=== PATIENT | male | born 1955 | race Caucasian/White ===

== ENCOUNTER 2017-10-19 13:53 | Day surgery (SDC) | payer BC ==
[~2017-10-19] VITALS: Ht 172.7 cm; Wt 110.2 kg
[2017-10-19 14:28] LABS: BASOPHILS # (AUTO) 0.1 10^3/uL (0.0-0.1); BASOPHILS % (AUTO) 0 % (0-10); EOSINOPHILS # (AUTO) 0.2 10^3/uL (0.0-0.3); EOSINOPHILS % (AUTO) 2 % (0-10); HEMATOCRIT 44 % (40-54); HEMOGLOBIN 15.5 G/DL (13.3-17.7); LYMPHOCYTES # (AUTO) 1.4 X 10^3 (1.0-4.0); LYMPHOCYTES % (AUTO) 12 % (12-44); MEAN CORPUSCULAR HEMOGLOBIN 31 PG (25-34); MEAN CORPUSCULAR HGB CONC 35 G/DL (32-36); MEAN CORPUSCULAR VOLUME 90 FL (80-99); MEAN PLATELET VOLUME 9.1 FL (7.4-10.4); MONOCYTES # (AUTO) 1.1 X 10^3 (0.0-1.0); MONOCYTES % (AUTO) 10 % (0-12); NEUTROPHILS # (AUTO) 8.5 X 10^3 (1.8-7.8); NEUTROPHILS % (AUTO) 76 % (42-75); PLATELET COUNT 288 10^3/uL (130-400); RED BLOOD COUNT 4.93 10^6/uL (4.35-5.85); RED CELL DISTRIBUTION WIDTH 14.5 % (10.0-14.5); WHITE BLOOD COUNT 11.2 10^3/uL (4.3-11.0)
[2017-10-19 14:57] LABS: ALANINE AMINOTRANSFERASE 26 U/L (0-55); ALBUMIN 4.3 GM/DL (3.2-4.5); ALKALINE PHOSPHATASE 120 U/L (40-136); BILIRUBIN,TOTAL 0.5 MG/DL (0.1-1.0); BUN/CREATININE RATIO 14; CALCIUM 9.2 MG/DL (8.5-10.1); CARBON DIOXIDE 20 MMOL/L (21-32); CHLORIDE 106 MMOL/L (98-107); CREATININE SERUM 1.01 MG/DL (0.60-1.30); GFR ESTIMATED > 60; GLUCOSE 171 MG/DL (70-105); POTASSIUM 4.3 MMOL/L (3.6-5.0); SODIUM 137 MMOL/L (135-145); TOTAL PROTEIN 6.5 GM/DL (6.4-8.2)
--- NOTE | 2017-10-19 15:15 | Diagnostic Imaging Report ---
INDICATION: Chest pain. TIME OF EXAM: 02:56 p.m. COMPARISON: No prior studies are available for comparison. FINDINGS: The heart size is normal. The pulmonary vascularity is unremarkable. The lungs are clear. No infiltrate, effusion or pneumothorax is detected. IMPRESSION: No acute cardiopulmonary process is detected. Dictated by: Dictated on workstation # [id number]
--- NOTE | 2017-10-19 15:55 | ED Chest Pain ---
General Chief Complaint: Chest Pain Stated Complaint: EKG ABN Nursing Triage Note: PATIENT STATES THAT HE WAS TOLD TO COME TO THE ER BY HIS PCP AFTER AN ABNORMAL EKG THIS MORNING. 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 HE HAS NO ASSOCIATED SYMPTOMS. Nursing Sepsis Screen: No Definite Risk Source: patient Exam Limitations: no limitations History of Present Illness Date Seen by Provider: Oct 19, 2017 Time Seen by Provider: 15:20 Initial Comments The patient is a 62-year-old white male. He relates that he was awakened from sleep at about 04 30 with chest pain. This persisted. He had had at least one shorter episode earlier in the week. He does not smoke. There is no strong family history of early heart disease. He is a type II diabetic and takes only metformin. He noted after getting up that the pain seemed to go from to his back in an area just below the left shoulder blade. It also seemed to relieve after he got up and moved about. He reports there was some pain to movement when he initially got up. He then decided to go to the [facility] and saw a nurse practitioner there. She sent him here and he had an electrocardiogram and a troponin drawn when she got the computer interpreted the EKG report it has stated that there was an inferolateral infarct acutely. She then called him back and told him that he should report to the emergency room. After arrival here he reported that he was having minimum of any pain. Electrocardiogram repeated was exactly the same and revealed a right bundle branch block which had been present. This was not consistent with inferolateral infarct. A repeat troponin has subsequently been drawn and is normal as well. Timing/Duration: 6-7 days (intermittently) Severity/Quality: moderate Location: other (left chest and radiating through to the subscapular area on the left) Associated Symptoms: denies symptoms Allergies and Home Medications Patient Home Medication List Home Medication List Reviewed: Yes Review of Systems Constitutional: see HPI EENTM: No Symptoms Reported Respiratory: No Symptoms Reported Cardiovascular: See HPI Gastrointestinal: No Symptoms Reported Genitourinary: No Symptoms Reported Musculoskeletal: no symptoms reported Skin: no symptoms reported Psychiatric/Neurological: No Symptoms Reported Endocrine: No Symptoms Reported Hematologic/Lymphatic: No Symptoms Reported Past Rxvgdyi-Psgakn-Nfuccd Hx Patient Social History Alcohol Use: Denies Use Recreational Drug Use: No Smoking Status: Never a Smoker 2nd Hand Smoke Exposure: No Recent Foreign Travel: No Contact w/Someone Who Travel: No Recent Infectious Disease Expo: No Recent Hopitalizations: No Physical Abuse: No Sexual Abuse: No Seasonal Allergies Seasonal Allergies: Yes Past Medical History Surgeries: Yes Appendectomy Respiratory: No Cardiac: Yes Hypertension Neurological: No Genitourinary: No Gastrointestinal: No Musculoskeletal: Yes Gout Endocrine: Yes ("BORDERLINE" DIABETES) Diabetes, Non-Insulin dep HEENT: No Cancer: No Psychosocial: No Nursing Suicide Risk Score: 0 Integumentary: No Blood Disorders: No Physical Exam Vital Signs Vital Signs - First Documented 10/19/17 13:58 Temp 96.7 Pulse 109 Resp 20 B/P (MAP) 140/97 (111) Pulse Ox 96 Capillary Refill : Less Than 3 Seconds Height, Weight, BMI Height: 5'8.00" Weight: 243lbs. 0oz. 110.254431ew; BMI Method:Stated General Appearance: No Apparent Distress, WD/WN HEENT: Normal ENT Inspection Neck: Normal Inspection Respiratory: Chest Non Tender, Lungs Clear, Normal Breath Sounds, No Accessory Muscle Use, No Respiratory Distress Cardiovascular: Regular Rate, Rhythm, No Edema, No Gallop, No JVD, No Murmur, Normal Peripheral Pulses Gastrointestinal: Normal Bowel Sounds, No Organomegaly, No Pulsatile Mass, Non Tender Extremity: Normal Inspection Neurologic/Psychiatric: Alert, Oriented x3, No Motor/Sensory Deficits, Normal Mood/Affect Skin: Normal Color, Warm/Dry Lymphatic: No Adenopathy Progress/Results/Core Measures Results/Orders Lab Results Laboratory Tests Test 10/19/17 11:56 10/19/17 14:25 Range/Units White Blood Count 11.2 H 4.3-11.0 10^3/uL Red Blood Count 4.93 4.35-5.85 10^6/uL Hemoglobin 15.5 13.3-17.7 G/DL Hematocrit 44 40-54 % Mean Corpuscular Volume 90 80-99 FL Mean Corpuscular Hemoglobin 31 25-34 PG Mean Corpuscular Hemoglobin Concent 35 32-36 G/DL Red Cell Distribution Width 14.5 10.0-14.5 % Platelet Count 288 130-400 10^3/uL Mean Platelet Volume 9.1 7.4-10.4 FL Neutrophils (%) (Auto) 76 H 42-75 % Lymphocytes (%) (Auto) 12 12-44 % Monocytes (%) (Auto) 10 0-12 % Eosinophils (%) (Auto) 2 0-10 % Basophils (%) (Auto) 0 0-10 % Neutrophils # (Auto) 8.5 H 1.8-7.8 X 10^3 Lymphocytes # (Auto) 1.4 1.0-4.0 X 10^3 Monocytes # (Auto) 1.1 H 0.0-1.0 X 10^3 Eosinophils # (Auto) 0.2 0.0-0.3 10^3/uL Basophils # (Auto) 0.1 0.0-0.1 10^3/uL Sodium Level 137 135-145 MMOL/L Potassium Level 4.3 3.6-5.0 MMOL/L Chloride Level 106 98-107 MMOL/L Carbon Dioxide Level 20 L 21-32 MMOL/L Anion Gap 11 5-14 MMOL/L Blood Urea Nitrogen 14 7-18 MG/DL Creatinine 1.01 0.60-1.30 MG/DL Estimat Glomerular Filtration Rate > 60 BUN/Creatinine Ratio 14 Glucose Level 171 H 70-105 MG/DL Calcium Level 9.2 8.5-10.1 MG/DL Corrected Calcium 9.0 8.5-10.1 MG/DL Total Bilirubin 0.5 0.1-1.0 MG/DL Aspartate Amino Transf (AST/SGOT) 21 5-34 U/L Alanine Aminotransferase (ALT/SGPT) 26 0-55 U/L Alkaline Phosphatase 120 40-136 U/L Troponin I < 0.30 <0.30 NG/ML Total Protein 6.5 6.4-8.2 GM/DL Albumin 4.3 3.2-4.5 GM/DL My Orders Orders - GENESIS DEAN MD Ekg Tracing (10/19/17 14:06) Cbc With Automated Diff (10/19/17 14:06) Comprehensive Metabolic Panel (10/19/17 14:06) Troponin I (10/19/17 14:06) Chest 1 View, Ap/Pa Only (10/19/17 14:06) Vital Signs/I&O 10/19/17 13:58 Temp 96.7 Pulse 109 Resp 20 B/P (MAP) 140/97 (111) Pulse Ox 96 Blood Pressure Mean: 111 Departure Communication (Admissions) Discussed with Dr. Schaffer and then with Dr. Bhagat at 1550. The patient will be admitted with anticipated angiography in the a.m. Impression Primary Impression: chest pain Disposition: ADMITTED INPATIENT Condition: Stable/Unchanged Admissions Decision to Admit Reason: Admit from ER (General) Decision to Admit/Date: Oct 19, 2017 Time/Decision to Admit Time: 15:56 Departure-Patient Inst. Referrals: JOELLE GODWIN MD (PCP/Family) Primary Care Physician GENESIS DEAN MD Oct 19, 2017 15:54
[2017-10-19] MEDS ORDERED: meTOprolol TARTRATE 50 MG (LOPRESSOR) TAB PO ONE (16:30)
[2017-10-19] MEDS ORDERED: ASPIRIN 81 MG CHEW (CHILDREN'S ASA) PO ONE (16:30)
[2017-10-19 17:35] VITALS: BP 129/87
[2017-10-19] MEDS ORDERED: CATHETER FLUSH 10 ML SYR IV PRN (18:15)
[2017-10-19] MEDS ORDERED: SIMV20TA3 PO ×2 (19:35)
[2017-10-19] MEDS ORDERED: CYCL10TA9 PO ×2 (19:35)
[2017-10-19] MEDS ORDERED: INDO50CA11 PO ×2 (19:35)
[2017-10-19] MEDS ORDERED: ASPI-983 PO ×2 (19:35)
[2017-10-19] MEDS ORDERED: LORA10TA76 PO ×2 (19:35)
[2017-10-19] MEDS ORDERED: METF500T8 PO ×2 (19:35)
[2017-10-19] MEDS ORDERED: ALLO300T2 PO ×2 (19:35)
[2017-10-19] MEDS ORDERED: FAMO-119 PO ×2 (19:35)
[2017-10-19] MEDS ORDERED: AMLO5TAB2 PO ×2 (19:35)
[2017-10-19] MEDS ORDERED: ENAL20TA PO ×2 (19:35)
[2017-10-19 20:59] VITALS: BP 119/69
[2017-10-19] MEDS: CATHETER FLUSH 10 ML SYR IV SCH (21:14)
[2017-10-20] VITALS (10 sets, daily range): BP systolic 106–127; BP diastolic 72–87
[2017-10-20] MEDS: CATHETER FLUSH 10 ML SYR IV SCH ×2 (06:23→14:38)
[2017-10-20 06:36] LABS: CHOLESTEROL 145 MG/DL (< 200); HDL CHOLESTEROL 39 MG/DL (40-60); TRIGLYCERIDES 141 MG/DL (<150); VLDL CHOLESTEROL 28 MG/DL (5-40)
[2017-10-20] MEDS ORDERED: HEParin (CATH LAB) 2,000 ML IV ONE (07:39)
[2017-10-20] MEDS ORDERED: LIDOCAINE 1% INJ 20 ML 20 ML VIAL ONE (07:39)
[2017-10-20] MEDS ORDERED: NS IV 1000 ML 1,000 ML ONE (07:39)
[2017-10-20] MEDS ORDERED: MIDAZOLAM 5 MG/5 ML (VERSED) VIAL ONE (08:13)
[2017-10-20] MEDS ORDERED: fentaNYL INJECTION 100 MCG/2 ML AMP ONE (08:13)
[2017-10-20] MEDS ORDERED: HEParin 1000 UNIT/ML (10ML VIAL) FOR BOLUS ONE (08:52)
[2017-10-20] MEDS ORDERED: VERAPAMIL 5 MG/2 ML (CALAN) VIAL IV ONE (08:52)
[2017-10-20] MEDS ORDERED: NITRO DRIP 25000 MCG/D5W 250 ML IV ONE (08:52)
[2017-10-20] MEDS ORDERED: NS IV 1000 ML 1,000 ML IV SCH ×2 (09:00→10:26)
[2017-10-20] MEDS ORDERED: ASPIRIN 81 MG CHEW (CHILDREN'S ASA) PO SCH (09:00)
[2017-10-20] MEDS ORDERED: meTOprolol TARTRATE 50 MG (LOPRESSOR) TAB PO SCH (09:00)
--- NOTE | 2017-10-20 09:21 | Consultation-Cardiology ---
HPI-Cardiology Cardiology Consultation: Date of Consultation 10/20/17 Date of Admission Attending Physician Paul Bhagat MD Admitting Physician Peter Correa MD Consulting Physician Luis Miguel SCHAFFER MD HPI: Time Seen by Provider: 08:45 Chief Complaint: Chest pain This is a 62-year-old gentleman who has history of hypertension, hyperlipidemia , diabetes who presents with a prolonged episode of chest pain. Chest pain woke him from sleeping at 4 o'clock in the morning and continued on until 1 o' clock in the afternoon. Moderate intensity. 4/10. Unremitting however improvement with nitroglycerin and morphine. No significant radiation. Substernal in origin. No clear exacerbating factors. No associated shortness of breath, syncope, near-syncope, palpitations. Review of Systems-Cardiology Review of Systems Constitutional: As described under HPI; No As described under HPI, No no symptoms reported, No chills, No fever, No lightheadedness Eyes: No As described under HPI, No no symptoms reported, No blindness, No blurred vision, No contact lenses, No drainage, No decreased acuity, No foreign body sensation, No pain, No vision change Ears/Nose/Throat: No As described under HPI, No no symptoms reported, No chronic hearing loss, No ear discharge, No ear pain, No nasal drainage, No ulcerations Respiratory: No no symptoms reported; As described under HPI; No As described under HPI, No cough, No orthopnea, No shortness of breath, No SOB with excertion Cardiovascular: No no symptoms reported; As described under HPI; No As described under HPI, No chest pain, No edema, No irregular heart rate, No lightheadedness, No palpitations Gastrointestinal: No no symptoms reported, No As described under HPI, No abdomen distended, No abdominal pain, No blood streaked bowels, No constipation , No diarrhea, No nausea, No vomiting, No stool coloration changes Genitourinary: No As described under HPI, No burning, No dysuria, No discharge , No frequency, No flank pain, No hematuria, No urgency Skin: No rash, No skin related problems, No ulcerations Psychiatric/Neurological: No anxiety, No depression, No seizure, No focal weakness, No syncope Hematologic: No bleeding abnormalities TBL-Elomin-Eidjau Hx Patient Social History Alcohol Use: Denies Use Recreational Drug Use: No Smoking Status: Former Smoker 2nd Hand Smoke Exposure: No Recent Foreign Travel: No Recent Infectious Disease Expo: No Hospitalization with Isolation: Denies Physical Abuse Screen: No Sexual Abuse: No Past Medical History PMH As described under Assessment. Allergies and Home Medications Allergies Coded Allergies: No Known Drug Allergies (Unverified , 10/19/17) Home Medications Allopurinol 300 Mg Tablet, 300 MG PO BID, (Reported) Aspirin 81 Mg Tablet.dr, 81 MG PO DAILY, (Reported) Cyclobenzaprine HCl 10 Mg Tablet, 10 MG PO PRN PRN for SPASMS, (Reported) Enalapril Maleate 20 Mg Tablet, 40 MG PO DAILY, (Reported) Famotidine 20 Mg Tablet, 10 MG PO DAILY PRN for INDIGESTION, (Reported) Indomethacin 50 Mg Capsule, 50 MG PO PRN, (Reported) Loratadine 10 Mg Tablet, 10 MG PO DAILY PRN for CONGESTION, (Reported) Metformin HCl 500 Mg Tab.er.24h, 1 TAB PO BID, (Reported) Metoprolol Succinate 25 Mg Tab.er.24h, 25 MG PO DAILY Prescribed by: PAUL BHAGAT on 10/20/17 1314 Simvastatin 20 Mg Tablet, 20 MG PO HS, (Reported) Patient Home Medication List Home Medication List Reviewed: Yes Physical Exam-Cardiology Physical Exam Vital Signs/I&O 10/20/17 10/20/17 10/20/17 10/20/17 10:30 10:45 11:00 11:15 Temp 97.5 97.6 Pulse 83 83 76 75 B/P (MAP) 106/72 (83) 112/74 (87) 117/79 (92) 125/81 (96) Pulse Ox 96 95 96 94 O2 Delivery Room Air Room Air Room Air Room Air 10/20/17 10/20/17 10/20/17 10/20/17 11:30 12:00 12:30 13:00 Pulse 78 80 85 71 B/P (MAP) 119/83 (95) 127/87 (100) 118/85 (96) Pulse Ox 96 95 95 O2 Delivery Room Air Room Air Room Air 10/20/17 10/20/17 13:30 15:05 Pulse 70 B/P (MAP) 110/75 (87) Pulse Ox 97 O2 Delivery Room Air 10/20/17 00:00 Intake Total 330 ml Balance 330 ml Capillary Refill : Less Than 3 Seconds Constitutional: appears stated age, AAO x 3; No apparent distress; well- developed, well-nourished HEENT: PERRL; No normal ENT inspection, No TMs normal, No pharynx normal, No scleral icterus (R), No scleral icterus (L), No pale conjunctivae (R), No pale conjunctivae (L), No photophobia, No TM abnormal (R), No TM abnormal (L), No pharyngeal erythema, No tonsillar exudate, No other, No discharge, No EOMI; hearing is well preserved; No hard of hearing; oral hygience is good; No ulceration, No xanthelasmas are seen Neck: No non-tender, No full range of motion, No supple, No normal inspection, No carotid bruit, No limited range of motion, No lymphadenopathy (R), No lymphadenopathy (L), No tender lateral, No tender midline, No thyromegaly, No other; carotid pulses are 2 + bilaterally; No with good upstrokes Respiratory: No accessory muscle use, No respiratory distress, No chest tender , No chest expansion is symmetric; chest is bilaterally symmetric; No lungs clear to percussion; lungs clear to auscultation; No crackles, No rhonchi, No rales, No stridor, No wheezing, No pleural rub, No other Cardiovascular: regular rate-rhythm; No irregularly irregular, No extra beats, No parasternal heave is noted, No JVD, No edema, No bradycardia, No tachycardia , No point of maximal impulse, No cardiac thrills are palpable; S1 and S2; No gallop/S3, No gallop/S4, No diastolic murmur, No systolic murmur, No friction rub, No click, No other Gastrointestinal: No tender, No soft, No round, No distended, No pulsatile mass , No organomegaly, No guarding, No rebound, No tenderness, No hernia, No mass, No audible bowel sounds, No abnormal bowel sounds, No abdominal bruits, No spleenomegaly, No other Rectal: deferred Extremities: No normal range of motion, No non-tender, No normal inspection, No pedal edema, No calf tenderness, No normal capillary refill, No pelvis stable , No calf tenderness, No inflammation, No pedal edema, No slow capillary refill , No swelling, No other, No abrasion, No clubbing, No cyanosis, No ecchymosis, No laceration, No no lower extremity edema bilateral, No significant edema, No tenderness, No wound Neurologic/Psychiatric: no motor/sensory deficits, alert, normal mood/affect, oriented x 3, power is 5/5 both on sides Skin: No normal color, No warm/dry, No cyanosis, No cool, No diaphoresis, No damp, No ecchymosis, No jaundice, No mottled, No pallor, No rash, No tattoos/ piercings, No ulcerations, No rash on exposed areas, No ulcerations on exposed areas, No other Data Review Labs Laboratory Tests 10/20/17 05:50: Troponin I < 0.30, Triglycerides Level 141, Cholesterol Level 145, LDL Cholesterol Direct 89, VLDL Cholesterol 28, HDL Cholesterol 39L ECG Impression ECG Initial ECG Rhythm: Normal Sinus Initial ECG Impression: Normal A/P-Cardiology Assessment/Admission Diagnosis Unstable Angina, Diabetes, hypertension, hyperlipidemia Plan Prolonged episode of chest pain in a patient with significant risk factors for CAD including diabetes, hypertension, hyperlipidemia. Non-STEMI ruled out with negative serial troponin and negative EKG. Working diagnosis is unstable angina. Coronary angiography today. All rest and complications were discussed in detail including vascular damage, bleeding, stroke, OH and even . Once the patient accepted all the risks and complication he was scheduled. Diabetes: Continue metformin. Hypertension: Continue outpatient antihypertensives. Blood pressure is well controlled. Hyperlipidemia: Continue simvastatin. Thank you for your consultation. Please call me if you have any questions. Shahriar Schaffer MD, FACP, FACC, FSCAI, FHRS, CCDS Interventional Cardiology Cardiac Electrophysiology Vascular Medicine and Endovascular Interventions Clinical Quality Measures DVT/VTE Risk/Contraindication: Risk Factor Score Per Nursin RFS Level Per Nursing on Admit: 2=Moderate Luis Miguel SCHAFFER MD Oct 20, 2017 09:21
--- NOTE | 2017-10-20 09:23 | Cardiac Procedure Note-CS/ASA ---
Pre-Procedure Note Pre-Op Procedure Note H&P Reviewed The H&P was reviewed, patient examined and no changes noted. Date H&P Reviewed: Oct 20, 2017 Time H&P Reviewed: 09:23 Conscious Sedation Pre-Proced Time Reviewed: : ASA Class: 2 Airway Mallampati Classification: ([place] appropriate class) I. II. III, IV Lungs Heart ASA score ASA 1: a normal healthy patient ASA 2: a patient with a mild systemic disease (mid diabetes, controlled hypertension, obesity ASA 3: a patient with a severe systemic disease that limits activity (angina , COPD, prior Myocardial infarction) ASA 4: a patient with an incapacitating disease that is a constant threat to life (CHF, renal failure) ASA 5: a moribund patient not expected to survive 24 hrs. (ruptured aneurysm) ASA 6: a declared brain patient whose organs are being harvested. For emergent operations, add the letter E after the classification Grade 1 Sedation Plan: Analgesia, Amnesia, Plan communicated to team members, Discussed options with patient/fam, Discussed risks with patient/fam Note The patient is an appropriate candidate to undergo the planned procedure, sedation, and anesthesia. The patient immediately re-assessed prior to indication. Luis Miguel BLOUNT MD Oct 20, 2017 9:23 am
[2017-10-20] MEDS ORDERED: ADENOSINE 3 MG/1 ML (ADENOSCAN) 30ML VIAL IV ONE (09:48)
--- NOTE | 2017-10-20 10:26 | Coronary Angiography Report ---
Coronary Angiography Report DATE OF PROCEDURE: 10/20/17 INDICATION: Unstable angina. PREOPERATIVE DIAGNOSIS: Unstable angina. POSTOPERATIVE DIAGNOSIS: Moderate CAD. HISTORY: This is a 62-year-old gentleman with prolonged episode of chest pain. He has significant risk factors for CAD including diabetes, hypertension, hyperlipidemia. Acute coronary syndrome was ruled out with negative serial troponin and EKG. Therefore, the patient was scheduled for coronary angiography. PROCEDURES PERFORMED: 1.Coronary angiography. 2.Left heart catheterization. 3. FFR to mid RCA. COMPLICATIONS: None. SPECIMENS: None. ESTIMATED BLOOD LOSS: 10 mL ANESTHESIA: Conscious sedation ANTICOAGULATION: IV heparin CONTRAST: 75 ml. FLUOROSCOPY: 9.9 minutes. FLOUROSCOPY DOSE: 1352 mgy. PROCEDURE DETAILS: The patient is a 62 male and was brought to the airport maintenance laborer after informed consent was taken. All the risks and complications were explained in detail; this included the risk of bleeding, vascular damage, stroke , SD and even . The patient was draped and prepped in the usual sterile fashion. Access was gained in the right femoral artery with a 6 Greek sheath. Coronary angiography was performed with the JL4 catheter. Left coronary system was engaged with a JL 4.5 catheter. Right coronary artery was engaged with a JR4 catheter. Left heart catheterization was performed with a JR4 catheter. FINDINGS: 1.Left main: Patent. 2.LAD: Moderate proximal disease. Stenosis severity 40 percent. BÁRBARA-3 flow. 3.Left circumflex artery: Mild disease. No significant focal stenosis. 4.RCA: Moderate proximal stenosis. Stenosis severity at least 50 percent. Haziness was noted. BÁRBARA-3 flow. 5.Left heart catheterization: Normal LV function with no wall motion abnormalities. No gradient across the aortic valve. LV pressure, aortic pressure. Recommendations: FFR to mid RCA is recommended. FFR details: JR4 guide catheter, pressure guidewire, IV heparin. One ACT was performed. The lesion was crossed with a pressure wire. Baseline FFR was 0.99. Adenosine was started at 140 g per KG per minute for 2 minutes. FFR at peak adenosine infusion was 0.96. Ostial spasm of the RCA was noted, therefore the catheter had to be taken out. At that point in time FFR was still ongoing and reading was falsely low therefore had to be discarded. Final FFR was 0.96 which is acceptable therefore PCI was deferred. The wire was taken out and there were no vascular complications. Right femoral artery was closed with the Mynx device. CONCLUSIONS: Moderate CAD. Can be discharged on Aspirin, BB, SRIRAM inhibitor and Statin. Follow up with me in office in one month. Shahriar Schaffer MD, FACP, FACC, [facility] Interventional Cardiology Luis Miguel SCHAFFER MD Oct 20, 2017 10:26
[2017-10-20] MEDS ORDERED: PATIENT MAY USE OWN MEDS, ALL PO SCH (10:30)
[2017-10-20] MEDS ORDERED: ASPIRIN E.C. 81 MG (ECOTRIN) TAB PO SCH (11:28)
--- NOTE | 2017-10-20 13:04 | Short Stay Summary-Hospitalist ---
History of Present Illness HPI/Chief Complaint Pt is a 62yoCM with a PMH of HTN, HLD, NIDDMII who presented to the Er with CC of chest pain. He states that he was working hard physically two days ago and then yesterday woke up with chest pain under his left pectoris muscle and his left shoulder blade. He has no diaphoresis, SOB, nausea, or radiation of pain. He went to work and it got better but as it persisted he decided to seek care in the ER. Given his risk factors he was admitted for further evaluation. He has already undergone cath and denies any symptoms as this time. He reports he is feeling well and is requesting discharge. Source: patient Exam Limitations: no limitations Date Seen 10/20/17 Time Seen by Provider: 13:04 Attending Physician Paul Bhagat MD PCP Peter Correa MD Referring Physician Date of Admission Oct 19, 2017 at 5:03 pm Home Medications & Allergies Home Medications Reviewed patient Home Medication Reconciliation performed by pharmacy medication reconciliations emergency medical technician basic and/or nursing. Patients Allergies have been reviewed. Allergies Allergies Coded Allergies No Known Drug Allergies (Unverified10/19/17) Past Eapmhzc-Djnwvq-Ysdjsw Hx Past Med/Social Hx: Reviewed Nursing Past Med/Soc Hx Patient Social History Employed/Student: employed Alcohol Use: Denies Use Recreational Drug Use: No Smoking Status: Former Smoker 2nd Hand Smoke Exposure: No Physical Abuse Screen: No Sexual Abuse: No Recent Foreign Travel: No Contact w/other who traveled: No Recent Hopitalizations: No Recent Infectious Disease Expo: No Immunizations Up To Date Pediatric: No Seasonal Allergies Seasonal Allergies: Yes Past Medical History Surgeries: Appendectomy, Orthopedic Cardiac: High Cholesterol, Hypertension Musculoskeletal: Fractures, Gout Endocrine: Diabetes, Non-Insulin dep History of Blood Disorders: No Adverse Reaction to Blood Kang: No Family History Reviewed Nursing Family Hx Heart Disease, CAD Under 55 Years Old Review of Systems Constitutional: no symptoms reported EENTM: no symptoms reported Respiratory: no symptoms reported Cardiovascular: see HPI Gastrointestinal: no symptoms reported Genitourinary: no symptoms reported Musculoskeletal: no symptoms reported Skin: no symptoms reported Psychiatric/Neurological: No Symptoms Reported Physical Exam Physical Exam Vital Signs Vital Signs - First Documented 10/19/17 10/19/17 13:58 17:35 Temp 96.7 Pulse 109 Resp 20 B/P (MAP) 140/97 (111) Pulse Ox 96 O2 Delivery Room Air Capillary Refill : Less Than 3 Seconds Height, Weight, BMI Height: 5'8.00" Weight: 243lbs. 0.0oz. 110.029390sk; 37.0 BMI Method:Stated General Appearance: No Apparent Distress, WD/WN HEENT: PERRL/EOMI, Moist Mucous Membranes Neck: Non Tender, Supple Respiratory: Lungs Clear, No Respiratory Distress Cardiovascular: Regular Rate, Rhythm, No Murmur Gastrointestinal: Normal Bowel Sounds, Non Tender, Soft Extremity: Normal Capillary Refill, No Calf Tenderness Neurologic/Psychiatric: Alert, Oriented x3, Normal Mood/Affect Skin: Normal Color, Warm/Dry Results Results/Procedures Labs Laboratory Tests 10/19/17 11:56 10/19/17 14:25 Patient resulted labs reviewed. Imaging: Reviewed Imaging Report Short Stay Diagnosis Discharge Diagnosis-Short Stay Admission Diagnosis chest pain Final Discharge Diagnosis chest pain Conclusion Plan Chest pain Admitted for ACS rule out given risk factors Cardiac cath moderate CAD but no interventions required To follow up with Dr Schaffer in 1 month Clinical Quality Measures DVT/VTE Risk/Contraindication: Risk Factor Score Per Nursin RFS Level Per Nursing on Admit: 2=Moderate PAUL BHAGAT MD Oct 20, 2017 1:03 pm
[2017-10-20] MEDS ORDERED: METO-387 PO ×2 (13:14)
--- NOTE | 2017-10-20 13:22 | Discharge Inst-Simple/Standard ---
Discharge Inst-Standard Discharge Medications New, Converted or Re-Newed RX: Transmitted to Pharmacy Patient Instructions/Follow Up Plan of Care/Instructions/FU: Please continue to take your medications as written and please follow up with your physicians as recommended. Activity as Tolerated: Yes Discharge Diet: ADA Diet, Cardiac Diet Return to The Hospital For: Chest pain, shortness of breath, if you feel your symptoms are getting worse. PAUL GARG MD Oct 20, 2017 1:22 pm
== END 2017-10-20 14:30 | disposition home or self-care (01) ==
LOC: EDUNIT# 13:53 → ER 13:55 → 4TH 17:03 → UNDOADMOB 17:03 → CATH 17:03 → UNDODISOB 10-20 14:30
PROVIDERS: ATTEND Family Medicine
DX: I25.10 Atherosclerotic heart disease of native coronary artery without angina pectoris (principal); I10 Essential (primary) hypertension; E78.5 Hyperlipidemia, unspecified; E11.9 Type 2 diabetes mellitus without complications; Z87.891 Personal history of nicotine dependence; Z79.84 Long term (current) use of oral hypoglycemic drugs
CPT/HCPCS: 36415; 71045; 80053; 80061; 84484; 85025; 93005; 93458

== ENCOUNTER → 2017-10-19 | Outpatient (CLI) | payer BC ==
[~2017-10-19] MED LIST: ALLO300T2 PO; AMLO5TAB2 PO; ASPI-983 PO; CYCL10TA9 PO; ENAL20TA PO; FAMO-119 PO; INDO50CA11 PO; LORA10TA76 PO; METF500T8 PO; METO-387 PO; SIMV20TA3 PO
[2017-10-19 12:24] LABS: CREATINE KINASE 180 U/L (30-200)
== END ==
LOC: CARD 11:35
PROVIDERS: ATTEND Registered Nurse
DX: R07.89 Other chest pain (principal)
CPT/HCPCS: 36415; 82550; 82553; 84484; 93005

== ENCOUNTER 2018-06-27 05:53 | Outpatient (CLI) | payer BC ==
[~2018-06-27] VITALS: Ht 172.7 cm; Wt 110.2 kg
[~2018-06-27 05:53] MED LIST changes: -AMLO5TAB2 PO; +AMLO5TAB9 PO
[2018-06-27] MEDS ORDERED: CETI10TA17 PO (10:06)
[2018-06-29] MEDS ORDERED: PANT40TA2 PO (13:39)
== END 2018-06-27 10:10 | disposition home or self-care (01) ==
LOC: PREOP 05:53
PROVIDERS: ATTEND Surgery
DX: Z01.818 Encounter for other preprocedural examination (principal)

== ENCOUNTER 2018-06-29 12:44 | Day surgery (SDC) | payer BC ==
[~2018-06-29] VITALS: Ht 172.7 cm; Wt 110.2 kg
[~2018-06-29 12:44] MED LIST changes: +CETI10TA17 PO
[2018-06-29 12:45] VITALS: BP 145/112
[2018-06-29] MEDS ORDERED: NS IV 500 ML 500 ML IV PRN (12:52)
[2018-06-29] MEDS ORDERED: fentaNYL INJECTION 100 MCG/2 ML AMP IVP ONE (13:00)
[2018-06-29] MEDS ORDERED: LIDOCAINE JELLY 2% 6 ML SYRINGE MM PRN (13:00)
[2018-06-29] MEDS ORDERED: HURRICAINE EXT TUBE (BENZOCAINE) XX PRN (13:00)
[2018-06-29] MEDS ORDERED: MIDAZOLAM 2 MG/2 ML (VERSED) VIAL IVP ONE (13:00)
[2018-06-29] MEDS ORDERED: NS IV 500 ML 500 ML ONE (13:02)
--- NOTE | 2018-06-29 13:36 | Conscious Sedation/ASA ---
Conscious Sedation Pre-Proced Time 13:00 ASA Score 2 For ASA 3 and 4: Consider anesthesia and medical clearance. Also, for patients with a history of failed moderate sedation consider anesthesia. Airway Lungs Heart ASA score ASA 1: a normal healthy patient ASA 2: a patient with a mild systemic disease (mid diabetes, controlled hypertension, obesity ASA 3: a patient with a severe systemic disease that limits activity (angina , COPD, prior Myocardial infarction) ASA 4: a patient with an incapacitating disease that is a constant threat to life (CHF, renal failure) ASA 5: a moribund patient not expected to survive 24 hrs. (ruptured aneurysm) ASA 6: a declared brain- patient whose organs are being harvested. For emergent operations, add the letter E after the classification Mallampati Classification Grade 2 Sedation Plan Analgesia, Amnesia, Plan communicated to team members, Discussed options with patient/fam, Discussed risks with patient/fam The patient is an appropriate candidate to undergo the planned procedure, sedation, and anesthesia. The patient immediately re-assessed prior to indication. KETURAH CONNER MD Jun 29, 2018 13:36
--- NOTE | 2018-06-29 13:37 | Progress Note-Pre Operative ---
Pre-Operative Progress Note H&P Reviewed The H&P was reviewed, patient examined and no changes noted. Date Seen by Provider: Jun 29, 2018 Time Seen by Provider: 13:00 Date H&P Reviewed: Jun 29, 2018 Time H&P Reviewed: 13:00 Pre-Operative Diagnosis: GERD, screening colon KETURAH CONNER MD Jun 29, 2018 13:37
[2018-06-29] MEDS ORDERED: PANT40TA2 PO (13:39)
--- NOTE | 2018-06-29 13:39 | Discharge Inst-Surgical ---
D/C Lap Instructions-KIDO New, Converted, or Re-Newed RX: RX on Chart Follow Up Activity as tolerated High Fiber Diet 25g or more per day Avoid Alcohol, Caffeine, Spicy [place] and Acid foods. Drink 64 fluid oz or more of fluids per day. Symptoms to Report: Fever over 101 degree F, Nausea/Vomiting If any problems/questions: Contact your physician or go to Emergency Room KETURAH CONNER MD Jun 29, 2018 13:39
[2018-06-29] MEDS ORDERED: ONDANSETRON 4 MG/2 ML (SDV) Z0FRAN IV PRN (13:45)
[2018-06-29] MEDS ORDERED: ACETAMINOPHEN 325 MG TABLET PO PRN (13:45)
[2018-06-29] MEDS ORDERED: HYDROcodone/APAP 5 MG/325 MG (LORTAB) TAB PO PRN (13:45)
[2018-06-29] MEDS ORDERED: morphine INJ 10 MG/ML 1ML (SYR OR VIAL) IV PRN (13:45)
[2018-06-29] MEDS ORDERED: MIDAZOLAM 2 MG/2 ML (VERSED) VIAL ONE ×5 (13:50→13:51)
[2018-06-29] MEDS ORDERED: fentaNYL INJECTION 100 MCG/2 ML AMP ONE ×2 (13:51→14:58)
[2018-06-29] MEDS ORDERED: HURRICAINE EXT TUBE (BENZOCAINE) ONE (13:52)
[2018-06-29] MEDS ORDERED: LIDOCAINE JELLY 2% 6 ML SYRINGE ONE (13:52)
[2018-06-29 15:20] VITALS: BP 139/86
[2018-06-29 15:50] VITALS: BP 140/93
--- NOTE | 2018-06-29 16:33 | Progress Note-Post Operative ---
Post-Operative Progess Note Surgeon (s)/Coat Operator Insulator (s) Surgeon KETURAH CONNER MD Coat Operator Insulator: none Pre-Operative Diagnosis GERD, screening colon Post-Operative Diagnosis reflux esophagitis(stage 2), small HH(1.5cm), moderate gastritis. chronic stage 2 ext and int hemorrhoids, moderate sigmoid diverticulosis. Procedure & Operative Findings Date of Procedure 06/29/18 Procedure Performed/Findings EGD with bx. Colonscopy. Anesthesia Type cs Estimated Blood Loss Estimated blood loss (mL): minimal Specimens/Packing Specimens Removed ge jxn, antrum KETURAH CONNER MD Jun 29, 2018 16:33
--- NOTE | 2018-06-30 01:37 | OPERATIVE REPORT ---
DATE OF SERVICE: 06/29/2018 ATTENDING WHARF WORKER: Jennifer Harris APRN PREOPERATIVE DIAGNOSES: Screening colonoscopy, abdominal bloating and reflux. POSTOPERATIVE DIAGNOSES: Reflux esophagitis stage II, small hiatal hernia approximately 1.5 cm in size, moderate gastritis, chronic stage II external and internal hemorrhoids, moderate sigmoid diverticulosis. PROCEDURE: EGD with biopsy, colonoscopy. SURGEON: Keturah Conner MD ANESTHESIA: Conscious sedation. ESTIMATED BLOOD LOSS: Minimal. FINDINGS: As above in the postop. DISPOSITION: The patient tolerated the procedure well. INDICATIONS: The patient is a 62-year-old male in need of a screening colonoscopy. He has not had a colonoscopy up to this point in his left knee. He reports that he does not report any major issues of diarrhea, no constipation as well as no red blood per rectum nor any dark tarry stools. He also does not report any family history of colon cancer. He does report abdominal bloating usually after a meal and has had reflux for some amount of time and has been taking Pepcid, which mildly helps. DESCRIPTION OF PROCEDURE: The patient was brought to the endoscopy suite, laid in the left lateral decubitus position with head slightly elevated. After adequate IV pain and sedative medications and conscious sedation anesthesia, the mouthpiece was applied. Endoscope was placed in the mouth, visualizing the pharynx and hypopharyngeal region. Vocal cords, epiglottis and vallecula identified and appeared to be normal. Endoscope was then gently intubated at the esophageal opening and esophagus was insufflated. The endoscope was then advanced through the first, second and third portion of esophagus; at the level of GE junction, a reflux esophagitis stage II identified. There were no ulcers or strictures identified in this region. A biopsy was taken with forceps with visualization of good hemostasis. The endoscope was then advanced in the stomach and endoscope retroflexed, visualizing a small hiatal hernia approximately 1.5 cm in size. There was a moderate severity gastritis more towards the stomach antrum. No formal ulcerations, polyps or any neoplasms. A biopsy was taken of the stomach, antrum to rule out H. pylori with visualization of good hemostasis. The endoscope was then advanced to the remainder of the pylorus into the first and second portion of the duodenum, which appeared normal with no distal obstructions. The endoscope was then slowly withdrawn while taking a second look and suctioning of residual air with no additional findings. The patient tolerated this portion of the procedure well. We will recommend the necessary lifestyle and diet accommodation including small and more frequent meals, avoidance of eating at night as well as head elevation while lying supine. He also needs to avoid caffeinated beverages, spicy, greasy and acidic foods. We will also proceed with a trial of Protonix 40 mg daily. If he has continued symptoms despite a maximal medical therapy, his abdominal bloating may be secondary to gallbladder disease and we will then schedule diagnostic imaging with an ultrasound as well as a HIDA scan if necessary. Under the same anesthesia, we then proceeded with the colonoscopy portion of procedure. A digital rectal examination was performed, which revealed mild chronic stage II external and internal hemorrhoids, not actively edematous nor inflamed and no bleeding. Normal sphincter tone was felt and there were no palpable masses. The endoscope was then intubated into the anus and rectum gently insufflated. The endoscope was then advanced to the valves of [place] of the rectum with no polyps or any neoplasms identified. Prostate gland was palpable and appeared normal. The endoscope was then advanced to the sigmoid colon where a moderate sigmoid diverticulosis identified. There were no mucosal inflammatory changes to indicate any active diverticulitis. The endoscope was then advanced to the remainder of the descending, transverse and ascending colon to the cecum. These segments were normal. There were no polyps or any neoplasms identified throughout the colon or rectum. The endoscope was then slowly withdrawn while taking a second look and suctioning of residual air with no additional findings. The patient tolerated the procedure well. We will recommend conservative management with a high fiber diet with at least 30 grams of fiber per day as well as significant amounts of water on a daily basis to promote soft stools daily as well. There were no polyps identified and he does not have a family history of colon cancer and if he is asymptomatic, he may wait 10 years for his next colonoscopy. Job ID: [id number] DocumentID: [id number] Dictated Date: 06/29/2018 15:14:41 Manager Commercial Date: 06/30/2018 01:36:44 Dictated By: KETURAH CONNER MD
== END 2018-06-29 16:05 | disposition home or self-care (01) ==
LOC: ENDO 12:44
PROVIDERS: ATTEND Surgery
DX: Z12.11 Encounter for screening for malignant neoplasm of colon (principal); K57.30 Diverticulosis of large intestine without perforation or abscess without bleeding; K64.1 Second degree hemorrhoids; K21.0 Gastro-esophageal reflux disease with esophagitis; K44.9 Diaphragmatic hernia without obstruction or gangrene; K29.70 Gastritis, unspecified, without bleeding; E11.9 Type 2 diabetes mellitus without complications; I10 Essential (primary) hypertension; E78.00 Pure hypercholesterolemia, unspecified; M10.9 Gout, unspecified; Z79.84 Long term (current) use of oral hypoglycemic drugs; Z79.899 Other long term (current) drug therapy
CPT/HCPCS: 88305

== ENCOUNTER → 2018-07-16 | Outpatient (CLI) | payer BC ==
[~2018-07-16] MED LIST changes: +PANT40TA2 PO
--- NOTE | 2018-07-16 09:33 | Diagnostic Imaging Report ---
INDICATION: Right upper quadrant pain. TECHNIQUE: Multiple grayscale sonographic images were obtained of the right upper quadrant of the abdomen. CORRELATION STUDY: None FINDINGS: LIVER: There is increased echotexture within the visualized portions of the liver. Liver length 15 cm. GALLBLADDER: The gallbladder demonstrates no definitive shadowing gallstones. No abnormal gallbladder wall thickening or pericholecystic fluid. COMMON BILE DUCT: Not visualized. However, no findings to suggest significant bile duct dilatation. PANCREAS: Largely obscured. RIGHT KIDNEY: Measures 11.3 cm. No hydronephrosis. AORTA/IVC: Not well visualized. OTHER: None. IMPRESSION: 1. Negative for cholelithiasis. 2. Perhaps mild hepatic steatosis. Dictated by: Dictated on workstation # [id number]
== END ==
LOC: RAD 07:20
PROVIDERS: ATTEND Surgery
DX: R10.11 Right upper quadrant pain (principal); R14.0 Abdominal distension (gaseous)
CPT/HCPCS: 76705

== ENCOUNTER → 2018-07-30 | Outpatient (CLI) | payer BC ==
[~2018-07-30] MED LIST changes: +CATHETER FLUSH 10 ML SYR IV PRN
--- NOTE | 2018-07-30 18:58 | Diagnostic Imaging Report ---
INDICATION: Right upper quadrant pain. TECHNIQUE: Patient was administered 5.1 mCi technetium 99m Choletec intravenously and imaging over the abdomen was performed. At 60 minutes, patient drank one can of Ensure and a gallbladder ejection fraction was calculated. FINDINGS: There is homogeneous uptake of activity by the liver. There is prompt excretion of activity into the common duct and gallbladder. There is passage of activity into the small bowel. Gallbladder ejection fraction is 98%. IMPRESSION: 1. Patent cystic duct and common bile duct. 2. Gallbladder ejection fraction of 98%. Dictated by: Dictated on workstation # [id number]
== END ==
LOC: CARD 11:44
PROVIDERS: ATTEND Surgery
DX: R10.11 Right upper quadrant pain (principal); R14.0 Abdominal distension (gaseous)
CPT/HCPCS: 78227

== ENCOUNTER 2018-08-09 11:47 | Day surgery (SDC) | payer BC ==
[2018-08-09] VITALS (11 sets, daily range): BP systolic 111–156; BP diastolic 62–106
[~2018-08-09] VITALS: Ht 172.7 cm; Wt 92.2 kg
[~2018-08-09 11:47] MED LIST changes: -CATHETER FLUSH 10 ML SYR IV PRN
--- NOTE | 2018-08-09 13:01 | Progress Note-Pre Operative ---
Pre-Operative Progress Note H&P Reviewed The H&P was reviewed, patient examined and no changes noted. Date Seen by Provider: August 09, 2018 Time Seen by Provider: 13:00 Date H&P Reviewed: August 09, 2018 Time H&P Reviewed: 13:00 Pre-Operative Diagnosis: sx biliary dyskinesia KETURAH CONNER MD August 09, 2018 13:01
[2018-08-09] MEDS ORDERED: HYDR-34 PO (13:03)
--- NOTE | 2018-08-09 13:03 | Discharge Inst-Surgical ---
D/C Lap Instructions-UBALDO New, Converted, or Re-Newed RX: RX on Chart Follow Up Appt in 2 weeks Activity as tolerated No driving for 24 hours No [address] while on pain medications Incentive Spirometry use every 2 hours while awake Regular Diet Symptoms to Report: Fever over 101 degree F, Nausea/Vomiting Infection Signs and Symptoms to report: Increased redness, Foul odor of wound, Increased drainage Bathing instructions: May shower Operative Area Clean/Dry; Keep incision clean/dry If any problems/questions: Contact your physician or go to Emergency Room KETURAH CONNER MD August 09, 2018 13:03
[2018-08-09] MEDS ORDERED: morphine INJ 10 MG/ML 1ML (SYR OR VIAL) IVP PRN ×2 (13:15)
[2018-08-09] MEDS ORDERED: ONDANSETRON 4 MG/2 ML (SDV) Z0FRAN IVP PRN ×2 (13:15→17:15)
[2018-08-09] MEDS ORDERED: ACETAMINOPHEN 325 MG TABLET PO PRN (13:15)
[2018-08-09] MEDS ORDERED: oxyCODONE/APAP 5/325MG (PERCOCET 5) TABLET PO PRN (13:15)
[2018-08-09] MEDS ORDERED: ceFAZolin 2 GM/NS 50 ML IVPB IV ONE (13:30)
[2018-08-09] MEDS ORDERED: LACTATED RINGERS 1,000 ML IV PRN (13:46)
[2018-08-09] MEDS ORDERED: fentaNYL INJECTION 100 MCG/2 ML AMP IV ONE (14:30)
[2018-08-09] MEDS ORDERED: FAMOTIDINE 20MG/2ML IV (PEPCID) IV ONE (14:30)
--- OUTSIDE RECORDS SUMMARY | 2018-08-09 14:34 | XMS REPORT | Continuity of Care Document ---
Author Organization Unknown Address Unknown Allergies Active Description Code Type Severity Reaction Onset Reported/Identified Relationship to Patient Clinical Status Yes No Known Drug Allergies [id number] Drug Allergy Unknown N/A 06/27/2018 Medications There is no data. Problems Date Dx Coded Attending Type Code Diagnosis Diagnosed By 10/20/2017 Ot E11.9 TYPE 2 DIABETES MELLITUS WITHOUT COMPLIC 10/20/2017 Ot E78.5 HYPERLIPIDEMIA, UNSPECIFIED 10/20/2017 Ot I10 ESSENTIAL (PRIMARY) HYPERTENSION 10/20/2017 Ot I25.110 ATHSCL HEART DISEASE OF [place] ART W 10/20/2017 Ot Z79.84 AIR CONDITIONING TECHNICIAN (CURRENT) USE OF ORAL HYPOGLYC 10/20/2017 Ot Z79.899 OTHER AIR CONDITIONING TECHNICIAN (CURRENT) DRUG THERAPY 10/20/2017 Ot Z87.891 PERSONAL HISTORY OF NICOTINE DEPENDENCE 10/28/2017 Ot E11.9 TYPE 2 DIABETES MELLITUS WITHOUT COMPLIC 10/28/2017 Ot E78.5 HYPERLIPIDEMIA, UNSPECIFIED 10/28/2017 Ot I10 ESSENTIAL (PRIMARY) HYPERTENSION 10/28/2017 Ot I25.10 ATHSCL HEART DISEASE OF [place] CORONARY 10/28/2017 Ot Z79.84 ALF (CURRENT) USE OF ORAL HYPOGLYC 10/28/2017 Ot Z87.891 PERSONAL HISTORY OF NICOTINE DEPENDENCE 11/03/2017 Ot E11.9 TYPE 2 DIABETES MELLITUS WITHOUT COMPLIC 11/03/2017 Ot E78.5 HYPERLIPIDEMIA, UNSPECIFIED 11/03/2017 Ot I10 ESSENTIAL (PRIMARY) HYPERTENSION 11/03/2017 Ot I25.110 ATHSCL HEART DISEASE OF [place] ART W 11/03/2017 Ot Z79.84 AIR CONDITIONING TECHNICIAN (CURRENT) USE OF ORAL HYPOGLYC 11/03/2017 Ot Z79.899 OTHER ALF (CURRENT) DRUG THERAPY 11/03/2017 Ot Z87.891 PERSONAL HISTORY OF NICOTINE DEPENDENCE 06/28/2018 KETURAH CONNER MD Ot Z01.818 ENCOUNTER FOR OTHER PREPROCEDURAL EXAMIN 06/29/2018 KETURAH CONNER MD, Ot E11.9 TYPE 2 DIABETES MELLITUS WITHOUT COMPLIC 06/29/2018 KETURAH CONNER MD Ot E78.00 PURE HYPERCHOLESTEROLEMIA, UNSPECIFIED 06/29/2018 KETURAH CONNER MD Ot I10 ESSENTIAL (PRIMARY) HYPERTENSION 06/29/2018 KETURAH CONNER MD Ot K21.0 GASTRO-ESOPHAGEAL REFLUX DISEASE WITH ES 06/29/2018 KETURAH CONNER MD Ot K29.70 GASTRITIS, UNSPECIFIED, WITHOUT BLEEDING 06/29/2018 KETURAH CONNER MD, Ot K44.9 DIAPHRAGMATIC HERNIA WITHOUT OBSTRUCTION 06/29/2018 KETURAH CONNER MD, Ot K57.30 DVRTCLOS OF LG INT W/O PERFORATION OR AB 06/29/2018 KETURAH CONNER MD, Ot K64.1 SECOND DEGREE HEMORRHOIDS 06/29/2018 KETURAH CONNER MD, Ot M10.9 GOUT, UNSPECIFIED 06/29/2018 KETURAH CONNRE MD, Ot Z12.11 ENCOUNTER FOR SCREENING FOR MALIGNANT NE 06/29/2018 KETURAH CONNER MD Ot Z79.84 ALF (CURRENT) USE OF ORAL HYPOGLYC 06/29/2018 KETURAH CONNER MD, Ot Z79.899 OTHER AIR CONDITIONING TECHNICIAN (CURRENT) DRUG THERAPY 07/03/2018 KETURAH CONNER MD, Ot E11.9 TYPE 2 DIABETES MELLITUS WITHOUT COMPLIC 07/03/2018 KETURAH CONNER MD Ot E78.00 PURE HYPERCHOLESTEROLEMIA, UNSPECIFIED 07/03/2018 KETURAH CONNER MD Ot I10 ESSENTIAL (PRIMARY) HYPERTENSION 07/03/2018 KETURAH CONNER MD, Ot K21.0 GASTRO-ESOPHAGEAL REFLUX DISEASE WITH ES 07/03/2018 KETURAH CONNER MD Ot K29.70 GASTRITIS, UNSPECIFIED, WITHOUT BLEEDING 07/03/2018 KETURAH CONNER MD, Ot K44.9 DIAPHRAGMATIC HERNIA WITHOUT OBSTRUCTION 07/03/2018 KETURAH CONNER MD, Ot K57.30 DVRTCLOS OF LG INT W/O PERFORATION OR AB 07/03/2018 KETURAH CONNER MD, Ot K64.1 SECOND DEGREE HEMORRHOIDS 07/03/2018 KETURAH CONNER MD, Ot M10.9 GOUT, UNSPECIFIED 07/03/2018 KETURAH CONNER MD Ot Z12.11 ENCOUNTER FOR SCREENING FOR MALIGNANT NE 07/03/2018 KETURAH CONNER MD, Ot Z79.84 ALF (CURRENT) USE OF ORAL HYPOGLYC 07/03/2018 KETURAH CONNER MD, Ot Z79.899 OTHER AIR CONDITIONING TECHNICIAN (CURRENT) DRUG THERAPY 07/06/2018 KETURAH CONNER MD, Ot E11.9 TYPE 2 DIABETES MELLITUS WITHOUT COMPLIC 07/06/2018 KETURAH CONNER MD, Ot E78.00 PURE HYPERCHOLESTEROLEMIA, UNSPECIFIED 07/06/2018 KETURAH CONNER MD, Ot I10 ESSENTIAL (PRIMARY) HYPERTENSION 07/06/2018 KETURAH CONNER MD, Ot K21.0 GASTRO-ESOPHAGEAL REFLUX DISEASE WITH ES 07/06/2018 KETURAH CONNER MD, Ot K29.70 GASTRITIS, UNSPECIFIED, WITHOUT BLEEDING 07/06/2018 KETURAH CONNER MD, Ot K44.9 DIAPHRAGMATIC HERNIA WITHOUT OBSTRUCTION 07/06/2018 KETURAH CONNER MD, Ot K57.30 DVRTCLOS OF LG INT W/O PERFORATION OR AB 07/06/2018 KETURAH CONNER MD, Ot K64.1 SECOND DEGREE HEMORRHOIDS 07/06/2018 KETURAH CONNER MD, Ot M10.9 GOUT, UNSPECIFIED 07/06/2018 KETURAH CONNER MD, Ot Z12.11 ENCOUNTER FOR SCREENING FOR MALIGNANT NE 07/06/2018 KETURAH CONNER MD, Ot Z79.84 ALF (CURRENT) USE OF ORAL HYPOGLYC 07/06/2018 KETURAH CONNER MD, Ot Z79.899 OTHER ALF (CURRENT) DRUG THERAPY 07/17/2018 KETURAH CONNER MD, Ot R10.11 RIGHT UPPER QUADRANT PAIN 07/17/2018 KETURAH CONNER MD, Ot R14.0 ABDOMINAL DISTENSION (GASEOUS) 08/02/2018 KETURAH CONNER MD, Ot R10.11 RIGHT UPPER QUADRANT PAIN 08/02/2018 KETURAH CONNER MD, Ot R14.0 ABDOMINAL DISTENSION (GASEOUS) 08/02/2018 KETURAH CONNER MD, Ot R10.11 RIGHT UPPER QUADRANT PAIN 08/02/2018 KETURAH CONNER MD, Ot R14.0 ABDOMINAL DISTENSION (GASEOUS) Procedures There is no data. Results Test Result Range Serum or plasma creatine kinase measurement (enzymatic activity/volume) - 10/19/17 11:56 Serum or plasma creatine kinase measurement (enzymatic activity/volume) 180 U/L 30-200 Serum or plasma creatine kinase MB measurement (enzymatic activity/volume) - 10/19/17 11:56 Serum or plasma creatine kinase MB measurement (enzymatic activity/volume) 6.0 ng/mL <6.6 Serum or plasma troponin i.cardiac measurement (mass/volume) - 10/19/17 11:56 Serum or plasma troponin i.cardiac measurement (mass/volume) < ng/mL <0.30 Complete blood count (CBC) with automated white blood cell (WBC) differential - 10/19/17 11:56 Blood leukocytes automated count (number/volume) 11.2 10*3/uL 4.3-11.0 Blood erythrocytes automated count (number/volume) 4.93 10*6/uL 4.35-5.85 Venous blood hemoglobin measurement (mass/volume) 15.5 g/dL 13.3-17.7 Blood hematocrit (volume fraction) 44 % 40-54 Automated erythrocyte mean corpuscular volume 90 [foz_us] 80-99 Automated erythrocyte mean corpuscular hemoglobin (mass per erythrocyte) 31 pg 25-34 Automated erythrocyte mean corpuscular hemoglobin concentration measurement (mass/volume) 35 g/dL 32-36 Automated erythrocyte distribution width ratio 14.5 % 10.0- 14.5 Automated blood platelet count (count/volume) 288 10*3/uL 130-400 Automated blood platelet mean volume measurement 9.1 [foz_us] 7.4-10.4 Automated blood neutrophils/100 leukocytes 76 % 42-75 Automated blood lymphocytes/100 leukocytes 12 % 12-44 Blood monocytes/100 leukocytes 10 % 0-12 Automated blood eosinophils/100 leukocytes 2 % 0-10 Automated blood basophils/100 leukocytes 0 % 0-10 Blood neutrophils automated count (number/volume) 8.5 10*3 1.8-7.8 Blood lymphocytes automated count (number/volume) 1.4 10*3 1.0-4.0 Blood monocytes automated count (number/volume) 1.1 10*3 0.0- 1.0 Automated eosinophil count 0.2 10*3/uL 0.0-0.3 Automated blood basophil count (count/volume) 0.1 10*3/uL 0.0-0.1 Comprehensive metabolic panel - 10/19/17 14:25 Serum or plasma sodium measurement (moles/volume) 137 mmol/L 135-145 Serum or plasma potassium measurement (moles/volume) 4.3 mmol/L 3.6-5.0 Serum or plasma chloride measurement (moles/volume) 106 mmol/L 98-107 Carbon dioxide 20 mmol/L 21-32 Serum or plasma anion gap determination (moles/volume) 11 mmol/L 5-14 Serum or plasma urea nitrogen measurement (mass/volume) 14 mg/dL 7-18 Serum or plasma creatinine measurement (mass/volume) 1.01 mg/dL 0.60-1.30 Serum or plasma urea nitrogen/creatinine mass ratio 14 NRG Serum or plasma creatinine measurement with calculation of estimated glomerular filtration rate > NRG Serum or plasma glucose measurement (mass/volume) 171 mg/dL 70-105 Serum or plasma calcium measurement (mass/volume) 9.2 mg/dL 8.5-10.1 Serum or plasma total bilirubin measurement (mass/volume) 0.5 mg/dL 0.1-1.0 Serum or plasma alkaline phosphatase measurement (enzymatic activity/volume) 120 U/L 40-136 Serum or plasma aspartate aminotransferase measurement (enzymatic activity/volume) 21 U/L 5-34 Serum or plasma alanine aminotransferase measurement (enzymatic activity/volume) 26 U/L 0-55 Serum or plasma protein measurement (mass/volume) 6.5 g/dL 6.4-8.2 Serum or plasma albumin measurement (mass/volume) 4.3 g/dL 3.2-4.5 CALCIUM CORRECTED 9.0 mg/dL 8.5-10.1 Serum or plasma troponin i.cardiac measurement (mass/volume) - 10/19/17 14:25 Serum or plasma troponin i.cardiac measurement (mass/volume) < ng/mL <0.30 Serum or plasma troponin i.cardiac measurement (mass/volume) - 10/20/17 05:50 Serum or plasma troponin i.cardiac measurement (mass/volume) < ng/mL <0.30 Lipid 1996 panel - 10/20/17 05:50 Serum or plasma triglyceride measurement (mass/volume) 141 mg/dL <150 Serum or plasma cholesterol measurement (mass/volume) 145 mg/dL < 200 Serum or plasma cholesterol in HDL measurement (mass/volume) 39 mg/dL 40-60 Cholesterol in LDL [mass/volume] in serum or plasma by direct assay 89 mg/dL 1-129 Serum or plasma cholesterol in VLDL measurement (mass/volume) 28 mg/dL 5-40 Encounters ACCT No. Visit Date/Time Discharge Status Pt. Type Provider Facility Loc./Unit Complaint [id number] 07/30/2018 11:44:00 07/30/2018 23:59:59 CLS Outpatient KETURAH CONNER MD [facility] CARD RUQ PAIN,BLOATING [id number] 07/16/2018 07:20:00 07/16/2018 23:59:59 CLS Outpatient KETURAH CONNER MD [facility] RAD RUQ PAIN,BLOATING [id number] 06/29/2018 12:44:00 06/29/2018 16:05:00 DIS Outpatient KETURAH CONNER MD [facility] ENDO SCREENING/REFLUX [id number] 06/27/2018 05:53:00 06/27/2018 10:10:00 DIS Outpatient KETURAH CONNER MD [facility] PREOP COLONOSCOPY/EGD [id number] 2018 13:02:00 Document Registration [id number] 10/19/2017 14:30:00 Document Registration [id number] 10/19/2017 12:24:00 Document Registration
[2018-08-09] MEDS ORDERED: ONDANSETRON 4 MG/2 ML (SDV) Z0FRAN ONE (14:53)
[2018-08-09] MEDS ORDERED: fentaNYL INJECTION 100 MCG/2 ML AMP ONE ×2 (14:54→16:12)
[2018-08-09] MEDS ORDERED: MIDAZOLAM 2 MG/2 ML (VERSED) VIAL ONE (14:54)
[2018-08-09] MEDS ORDERED: LIDOCAINE PF 2% 5 ML (XYLOCAINE) VIAL ONE (14:54)
[2018-08-09] MEDS ORDERED: SEVOFLURANE (ULTANE) 15 ML INHAL SOLN ONE (14:54)
[2018-08-09] MEDS ORDERED: NEOSTIGMINE 1 MG/ML 5 ML SYRINGE ONE (14:54)
[2018-08-09] MEDS ORDERED: proPOfol 200 MG/20 ML (DIPRIVAN) VIAL IV ONE ×2 (14:54→16:13)
[2018-08-09] MEDS ORDERED: GLYCOPYRROLATE 0.2 MG/ML (ROBINUL) 2 ML VIAL ONE (14:54)
[2018-08-09] MEDS ORDERED: ROCURONIUM 10 MG/ML 5 ML SYRINGE IV ONE (14:57)
[2018-08-09] MEDS ORDERED: BUP/EPI 0.5% 1:200,000 (SENSORCAINE) 30 ML VIAL ONE (15:24)
[2018-08-09] MEDS ORDERED: LABETALOL HCL 20 MG/4 ML VIAL ONE ×2 (16:16→17:13)
[2018-08-09] MEDS ORDERED: HYDROmorphone 2 MG/ML VIAL (DILAUDID) ONE (16:51)
--- NOTE | 2018-08-09 16:59 | Progress Note-Post Operative ---
Post-Operative Progess Note Surgeon (s)/Leather Production Machine Operator (s) Surgeon KETURAH CONNER MD Leather Production Machine Operator: marco a morris Pre-Operative Diagnosis sx biliary dyskinesia Post-Operative Diagnosis chronic calculous cholecystitis Procedure & Operative Findings Date of Procedure 08/09/18 Procedure Performed/Findings laparoscopic cholecystectomy Anesthesia Type GET Estimated Blood Loss Estimated blood loss (mL): minimal Specimens/Packing Specimens Removed gallbladder KETURAH CONNER MD August 09, 2018 16:58
[2018-08-09] MEDS ORDERED: HYDROmorphone 2 MG/ML VIAL (DILAUDID) IV ONE (17:15)
--- NOTE | 2018-08-09 18:51 | Anesthesia-General Post-Op ---
General Patient Condition Mental Status/LOC: Same as Preop Cardiovascular: Satisfactory Nausea/Vomiting: Absent Respiratory: Satisfactory Pain: Controlled Complications: Absent Post Op Complications Complications None Follow Up Care/Instructions Patient Instructions None needed. Anesthesia/Patient Condition Patient Condition Patient is doing well, no complaints, stable vital signs, no apparent adverse anesthesia problems. No complications reported per nursing. [place] [facility] [place] Yes ERICK CAMARA CRNA August 09, 2018 18:51
--- NOTE | 2018-08-09 23:17 | OPERATIVE REPORT ---
DATE OF SERVICE: 08/09/2018 ATTENDING PRIMARY OPTICS TECHNICAL OFFICER: Jennifer Harris APRN PREOPERATIVE DIAGNOSIS: Symptomatic biliary dyskinesia. POSTOPERATIVE DIAGNOSIS: Chronic calculous cholecystitis. PROCEDURE: Laparoscopic cholecystectomy. SURGEON: Keturah Conner MD ANESTHESIA: General endotracheal. ESTIMATED BLOOD LOSS: Minimal. RADIO INTERFERENCE TROUBLE SHOOTER: Jose Alfredo Walker APRN FINDINGS: Distended gallbladder as well as some mild gallbladder wall thickening, small gallstones. DISPOSITION: The patient tolerated the procedure well. INDICATIONS: The patient is a 63-year-old male known to us. We have seen him before for EGD and colonoscopy. He was seen recently with pain in the right upper abdominal quadrant with radiation towards the back. With this, he has also had bloating sensation as well as nausea after eating meals. He does not report any classic symptoms of heartburn or reflux. He also does report intermittent episodes of diarrhea with his symptoms as well. An ultrasound was performed, which was negative. He then underwent a HIDA scan, which did show an ejection fraction 98%. However, he did have reproduction of symptoms with administration of Kinevac analogue consistent with a biliary dyskinesia. DESCRIPTION OF PROCEDURE: The patient was brought to the operating room, laid supine on the table. After adequate IV pain and sedating medications and general endotracheal intubation, the abdomen was prepped and draped in standard surgical fashion. A 0.5% Marcaine with epinephrine was used to anesthetize overlying skin in the left upper abdominal quadrant and a transverse skin incision made using 15 blade. An 0 silk suture was applied to the medial aspect of the incision for traction and a transverse skin incision made using a 15 blade. A Veress needle was then inserted with a low opening pressure of 0 mmHg and the abdomen was then insufflated to 15 mmHg pressure. The Veress needle removed and a 5 mm Xcel trocar placed followed by 5 mm 45 degree angle laparoscope visualizing the peritoneal cavity. A 4-quadrant abdominal exploration was performed. There was a distended gallbladder as well as mild gallbladder wall thickening. The liver, small bowel, omentum appeared normal. Under direct visualization, we then proceed to place a supraumbilical 10 mm port after the skin and peritoneal lining were anesthetized using 0.5% Marcaine with epinephrine and a transverse skin incision made using a 15 blade. In a similar manner, a right upper abdominal quadrant 5 mm port was placed. The patient was then placed in reverse Trendelenburg position as well as plane right side up, left side down. The fundus was then retracted anteriorly and superiorly and the hepatoduodenal ligament was opened using a hook instrument, using blunt dissection as well as electrocautery. The entire critical view of safety was identified including the triangle of Calot as well as the cystic duct and artery as the only two structures going into the gallbladder as well as the cystic plate behind the proximal gallbladder. A timeout was then taken and the cystic duct and artery were clipped proximally, distally and cut with EndoShears. The gallbladder was then dissected off the liver bed using electrocautery and hook instrument with visualization of good hemostasis as well as no leaking ducts of Luschka. The gallbladder was removed through the 10 mm port site using an EndoCatch bag. The 10 mm port site fascia and peritoneum were then closed under direct visualization using a Delio-Spencer device and 0 Vicryl suture. The abdomen was desufflated and remaining ports removed. All skin incisions were closed using 4-0 Monocryl running subcuticular sutures. Wounds were then cleaned and covered with Dermabond. The patient tolerated the procedure well. We will start IV and oral pain medication as well as a clear liquid diet. Once he is tolerating clears, has good pain control with oral pain medications, ambulating well, we will discharge him home. He will be instructed to do no heavy lifting or exertion for the next two weeks. Job ID: [id number] DocumentID: [id number] Dictated Date: 08/09/2018 17:15:44 Ornamental Metal Erector Apprentice Date: 08/09/2018 23:17:18 Dictated By: KETURAH CONNER MD
== END 2018-08-09 19:20 | disposition home or self-care (01) ==
LOC: SDC 11:47
PROVIDERS: ATTEND Surgery
DX: K81.1 Chronic cholecystitis (principal); I10 Essential (primary) hypertension; E11.9 Type 2 diabetes mellitus without complications; E78.00 Pure hypercholesterolemia, unspecified; K21.9 Gastro-esophageal reflux disease without esophagitis; M10.9 Gout, unspecified; Z79.84 Long term (current) use of oral hypoglycemic drugs; Z79.899 Other long term (current) drug therapy
CPT/HCPCS: 82962; 87081

== ENCOUNTER 2018-09-02 23:17 | Emergency (ER) | payer BC | END 2018-09-03 03:01 | disposition home or self-care (01) | LOC: ER 09-03 03:01 | DX: N39.0 Urinary tract infection, site not specified (principal); K59.00 Constipation, unspecified; N28.89 Other specified disorders of kidney and ureter; I10 Essential (primary) hypertension; E78.00 Pure hypercholesterolemia, unspecified; K21.9 Gastro-esophageal reflux disease without esophagitis; E11.9 Type 2 diabetes mellitus without complications; Z79.82 Long term (current) use of aspirin; Z79.84 Long term (current) use of oral hypoglycemic drugs; Z87.891 Personal history of nicotine dependence; Z90.49 Acquired absence of other specified parts of digestive tract; Z82.49 Family history of ischemic heart disease and other diseases of the circulatory system ==

== ENCOUNTER 2018-09-15 06:41 | Emergency (ER) | payer BC ==
[~2018-09-15] VITALS: Ht 172.7 cm; Wt 97.5 kg
[~2018-09-15 06:41] MED LIST changes: +CEPH250C PO; +HYDR-34 PO
--- OUTSIDE RECORDS SUMMARY | 2018-09-15 06:48 | XMS REPORT | Continuity of Care Document ---
Author Organization Unknown Address Unknown Allergies Active Description Code Type Severity Reaction Onset Reported/Identified Relationship to Patient Clinical Status Yes NO KNOWN DRUG ALLERGIES UNKNOWN NO KNOWN DRUG ALLERG Yes NO KNOWN DRUG ALLERGIES UNKNOWN UNKNOWN Yes No Known Drug Allergies [id number] Drug Allergy Unknown N/A 06/27/2018 Medications There is no data. Problems Date Dx Coded Attending Type Code Diagnosis Diagnosed By 11/10/2016 Kajal Harris 250.00 DIABETES MELLITUS WITHOUT MENTION OF COMPLICATION, TYPE II OR UNSPECIFIED TYPE, NOT STATED UNCONTROLLED 11/10/2016 Kajal Harris W 272.8 OTHER DISORDERS OF LIPOID METABOLISM 11/10/2016 Kajal Harris W E11.9 TYPE 2 DIABETES MELLITUS WITHOUT COMPLICATIONS 11/10/2016 Kajal Harris E78.5 HYPERLIPIDEMIA, UNSPECIFIED 11/10/2016 Kajal Harris W 250.00 DIABETES MELLITUS WITHOUT MENTION OF COMPLICATION, TYPE II OR UNSPECIFIED TYPE, NOT STATED UNCONTROLLED 11/10/2016 Kajal Harris W 272.8 OTHER DISORDERS OF LIPOID METABOLISM 11/10/2016 Kajal Harris W 274.10 GOUTY NEPHROPATHY, UNSPECIFIED 11/10/2016 Kajal Harris W 401.9 UNSPECIFIED ESSENTIAL HYPERTENSION 11/10/2016 Kajal Harris W E11.9 TYPE 2 DIABETES MELLITUS WITHOUT COMPLICATIONS 11/10/2016 Kajal Harris E78.5 HYPERLIPIDEMIA, UNSPECIFIED 11/10/2016 Kajal Harris W I10 ESSENTIAL (PRIMARY) HYPERTENSION 11/10/2016 Kajal Harris 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, RIGHT HIP 11/10/2016 Kajal Harris W 250.00 DIABETES MELLITUS WITHOUT MENTION OF COMPLICATION, TYPE II OR UNSPECIFIED TYPE, NOT STATED UNCONTROLLED 11/10/2016 Kajal Harris W 272.8 OTHER DISORDERS OF LIPOID METABOLISM 11/10/2016 Kajal Harris W 274.10 GOUTY NEPHROPATHY, UNSPECIFIED 11/10/2016 Kajal Harris W 401.9 UNSPECIFIED ESSENTIAL HYPERTENSION 11/10/2016 Kajal Harris 477.9 11/10/2016 Kimberly, Kajal W E11.9 TYPE 2 DIABETES MELLITUS WITHOUT COMPLICATIONS 11/10/2016 Kimberly, Kajal W E78.5 HYPERLIPIDEMIA, UNSPECIFIED 11/10/2016 Kimberly, Kajal W I10 ESSENTIAL (PRIMARY) HYPERTENSION 11/10/2016 Kimberly, Kajal W J30.1 ALLERGIC RHINITIS DUE TO POLLEN 11/10/2016 Kimberly, Kajal W 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, RIGHT HIP 11/10/2016 Kimberly, Kajal W 250.00 DIABETES MELLITUS WITHOUT MENTION OF COMPLICATION, TYPE II OR UNSPECIFIED TYPE, NOT STATED UNCONTROLLED 11/10/2016 Kimberly, Kajal W 272.8 OTHER DISORDERS OF LIPOID METABOLISM 11/10/2016 Kimberly, Kajal W 274.10 GOUTY NEPHROPATHY, UNSPECIFIED 11/10/2016 Kimberly, Kajal W 401.9 UNSPECIFIED ESSENTIAL HYPERTENSION 11/10/2016 Kimberly, Kajal W 477.9 11/10/2016 Kimberly, Kajal W E11.9 TYPE 2 DIABETES MELLITUS WITHOUT COMPLICATIONS 11/10/2016 Kimberly, Kajal W E78.5 HYPERLIPIDEMIA, UNSPECIFIED 11/10/2016 Kimberly, Kajal W I10 ESSENTIAL (PRIMARY) HYPERTENSION 11/10/2016 Kimberly, Kajal W J30.1 ALLERGIC RHINITIS DUE TO POLLEN 11/10/2016 Kimberly, Kajal W 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, RIGHT HIP 02/20/2017 Kimberly, Kajal W 272.8 OTHER DISORDERS OF LIPOID METABOLISM 02/20/2017 Kimberly, Kajal W 274.10 GOUTY NEPHROPATHY, UNSPECIFIED 02/20/2017 Kimberly, Kajal W E78.5 HYPERLIPIDEMIA, UNSPECIFIED 02/20/2017 Kimberly, Kajal W 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, RIGHT HIP 02/20/2017 Kimberly, Kajal W 272.8 OTHER DISORDERS OF LIPOID METABOLISM 02/20/2017 Kimberly, Kajal W 274.10 GOUTY NEPHROPATHY, UNSPECIFIED 02/20/2017 Kimberly, Kajal W E78.5 HYPERLIPIDEMIA, UNSPECIFIED 02/20/2017 Kimberly, Kajal W 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, RIGHT HIP 02/22/2017 Kimberly, Kajal W 272.8 OTHER DISORDERS OF LIPOID METABOLISM 02/22/2017 Kimberly, Kajal W 274.10 GOUTY NEPHROPATHY, UNSPECIFIED 02/22/2017 Kimberly, Kajal W E78.5 HYPERLIPIDEMIA, UNSPECIFIED 02/22/2017 Kajal Harris W 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, RIGHT HIP 10/20/2017 Ot E11.9 TYPE 2 DIABETES MELLITUS WITHOUT COMPLIC 10/20/2017 Ot E78.5 HYPERLIPIDEMIA, UNSPECIFIED 10/20/2017 Ot I10 ESSENTIAL (PRIMARY) HYPERTENSION 10/20/2017 Ot I25.110 ATHSCL HEART DISEASE OF [place] COR ART W 10/20/2017 Ot Z79.84 INTERPRETER (CURRENT) USE OF ORAL HYPOGLYC 10/20/2017 Ot Z79.899 OTHER RESIDENTIAL (CURRENT) DRUG THERAPY 10/20/2017 Ot Z87.891 PERSONAL HISTORY OF NICOTINE DEPENDENCE 10/28/2017 Ot E11.9 TYPE 2 DIABETES MELLITUS WITHOUT COMPLIC 10/28/2017 Ot E78.5 HYPERLIPIDEMIA, UNSPECIFIED 10/28/2017 Ot I10 ESSENTIAL (PRIMARY) HYPERTENSION 10/28/2017 Ot I25.10 ATHSCL HEART DISEASE OF [place] CORONARY 10/28/2017 Ot Z79.84 RESIDENTIAL (CURRENT) USE OF ORAL HYPOGLYC 10/28/2017 Ot Z87.891 PERSONAL HISTORY OF NICOTINE DEPENDENCE 11/03/2017 Kajal Harris W 250.00 DIABETES MELLITUS WITHOUT MENTION OF COMPLICATION, TYPE II OR UNSPECIFIED TYPE, NOT STATED UNCONTROLLED 11/03/2017 Kajal Harris W 272.8 OTHER DISORDERS OF LIPOID METABOLISM 11/03/2017 Kajal Harris W 274.10 GOUTY NEPHROPATHY, UNSPECIFIED 11/03/2017 Felicity Harrishy W 401.9 UNSPECIFIED ESSENTIAL HYPERTENSION 11/03/2017 Kimberly, Kajal W E11.9 TYPE 2 DIABETES MELLITUS WITHOUT COMPLICATIONS 11/03/2017 Kajal Harris W E78.5 HYPERLIPIDEMIA, UNSPECIFIED 11/03/2017 KimberlyKajal W I10 ESSENTIAL (PRIMARY) HYPERTENSION 11/03/2017 Kajal Harris W 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, RIGHT HIP 11/03/2017 Felicity Harrishy W 250.00 DIABETES MELLITUS WITHOUT MENTION OF COMPLICATION, TYPE II OR UNSPECIFIED TYPE, NOT STATED UNCONTROLLED 11/03/2017 Kajal Harris W 272.8 OTHER DISORDERS OF LIPOID METABOLISM 11/03/2017 Kajal Harris W 274.10 GOUTY NEPHROPATHY, UNSPECIFIED 11/03/2017 Kimberly, Kajal W 401.9 UNSPECIFIED ESSENTIAL HYPERTENSION 11/03/2017 Kimberly, Kajal W E11.9 TYPE 2 DIABETES MELLITUS WITHOUT COMPLICATIONS 11/03/2017 Kimberly, Kajal W E78.5 HYPERLIPIDEMIA, UNSPECIFIED 11/03/2017 Kimberly, Kajal W I10 ESSENTIAL (PRIMARY) HYPERTENSION 11/03/2017 KimberlyKajal W 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, RIGHT HIP 11/03/2017 Ot E11.9 TYPE 2 DIABETES MELLITUS WITHOUT COMPLIC 11/03/2017 Ot E78.5 HYPERLIPIDEMIA, UNSPECIFIED 11/03/2017 Ot I10 ESSENTIAL (PRIMARY) HYPERTENSION 11/03/2017 Ot I25.110 ATHSCL HEART DISEASE OF [place] COR ART W 11/03/2017 Ot Z79.84 INTERPRETER (CURRENT) USE OF ORAL HYPOGLYC 11/03/2017 Ot Z79.899 OTHER INTERPRETER (CURRENT) DRUG THERAPY 11/03/2017 Ot Z87.891 PERSONAL HISTORY OF NICOTINE DEPENDENCE 02/20/2018 Kajal Harris W 250.00 DIABETES MELLITUS WITHOUT MENTION OF COMPLICATION, TYPE II OR UNSPECIFIED TYPE, NOT STATED UNCONTROLLED 02/20/2018 Kajal Harris W 272.8 OTHER DISORDERS OF LIPOID METABOLISM 02/20/2018 Kajal Harris W 274.10 GOUTY NEPHROPATHY, UNSPECIFIED 02/20/2018 Kimberly, Kajal W 401.9 UNSPECIFIED ESSENTIAL HYPERTENSION 02/20/2018 Kimberly, Kajal W E11.9 TYPE 2 DIABETES MELLITUS WITHOUT COMPLICATIONS 02/20/2018 KimberlyKajal W E78.5 HYPERLIPIDEMIA, UNSPECIFIED 02/20/2018 KimberlyKajal W I10 ESSENTIAL (PRIMARY) HYPERTENSION 02/20/2018 Kajal Harris W 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, RIGHT HIP 02/20/2018 Kajal Harris W 250.00 DIABETES MELLITUS WITHOUT MENTION OF COMPLICATION, TYPE II OR UNSPECIFIED TYPE, NOT STATED UNCONTROLLED 02/20/2018 Kajal Harris W 272.8 OTHER DISORDERS OF LIPOID METABOLISM 02/20/2018 Kajal Harris W 274.10 GOUTY NEPHROPATHY, UNSPECIFIED 02/20/2018 Kimberly, Kajal W 401.9 UNSPECIFIED ESSENTIAL HYPERTENSION 02/20/2018 Kimberly, Kajal W E11.9 TYPE 2 DIABETES MELLITUS WITHOUT COMPLICATIONS 02/20/2018 Kimberly, Kajal W E78.5 HYPERLIPIDEMIA, UNSPECIFIED 02/20/2018 Kimberly, Kajal W I10 ESSENTIAL (PRIMARY) HYPERTENSION 02/20/2018 KimberlyKajal W 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, RIGHT HIP 06/28/2018 KETURAH CONNER MD Ot Z01.818 ENCOUNTER FOR OTHER PREPROCEDURAL EXAMIN 06/29/2018 KETURAH CONNER MD, Ot E11.9 TYPE 2 DIABETES MELLITUS WITHOUT COMPLIC 06/29/2018 KETURAH CONNER MD, Ot E78.00 PURE HYPERCHOLESTEROLEMIA, UNSPECIFIED 06/29/2018 KETURAH CONNER MD Ot I10 ESSENTIAL (PRIMARY) HYPERTENSION 06/29/2018 KETURAH CONNER MD Ot K21.0 GASTRO-ESOPHAGEAL REFLUX DISEASE WITH ES 06/29/2018 KETURAH CONNER MD Ot K29.70 GASTRITIS, UNSPECIFIED, WITHOUT BLEEDING 06/29/2018 KETURAH CONNER MD, Ot K44.9 DIAPHRAGMATIC HERNIA WITHOUT OBSTRUCTION 06/29/2018 KETURAH CONNER MD Ot K57.30 DVRTCLOS OF LG INT W/O PERFORATION OR AB 06/29/2018 KETURAH CONNER MD, Ot K64.1 SECOND DEGREE HEMORRHOIDS 06/29/2018 KETURAH CONNER MD Ot M10.9 GOUT, UNSPECIFIED 06/29/2018 KETURAH CONNER MD Ot Z12.11 ENCOUNTER FOR SCREENING FOR MALIGNANT NE 06/29/2018 KETURAH CONNER MD Ot Z79.84 INTERPRETER (CURRENT) USE OF ORAL HYPOGLYC 06/29/2018 KETURAH CONNER MD Ot Z79.899 OTHER INTERPRETER (CURRENT) DRUG THERAPY 07/03/2018 KETURAH CONNER MD, Ot E11.9 TYPE 2 DIABETES MELLITUS WITHOUT COMPLIC 07/03/2018 KETURAH CONNER MD, Ot E78.00 PURE HYPERCHOLESTEROLEMIA, UNSPECIFIED 07/03/2018 KETURAH CONNER MD Ot I10 ESSENTIAL (PRIMARY) HYPERTENSION 07/03/2018 KETURAH CONNER MD Ot K21.0 GASTRO-ESOPHAGEAL REFLUX DISEASE WITH ES 07/03/2018 KETURAH CONNER MD Ot K29.70 GASTRITIS, UNSPECIFIED, WITHOUT BLEEDING 07/03/2018 KETURAH CONNER MD, Ot K44.9 DIAPHRAGMATIC HERNIA WITHOUT OBSTRUCTION 07/03/2018 KETURAH CONNER MD Ot K57.30 DVRTCLOS OF LG INT W/O PERFORATION OR AB 07/03/2018 KETURAH CONNER MD Ot K64.1 SECOND DEGREE HEMORRHOIDS 07/03/2018 KETURAH CONNER MD, Ot M10.9 GOUT, UNSPECIFIED 07/03/2018 KETURAH CONNER MD, Ot Z12.11 ENCOUNTER FOR SCREENING FOR MALIGNANT NE 07/03/2018 KETURAH CONNER MD, Ot Z79.84 RESIDENTIAL (CURRENT) USE OF ORAL HYPOGLYC 07/03/2018 KETURAH CONNER MD, Ot Z79.899 OTHER INTERPRETER (CURRENT) DRUG THERAPY 07/06/2018 KETURAH CONNER MD, [...] NE 07/06/2018 KETURAH CONNER MD, Ot Z79.84 INTERPRETER (CURRENT) USE OF ORAL HYPOGLYC 07/06/2018 KETURAH CONNER MD, Ot Z79.899 OTHER INTERPRETER (CURRENT) DRUG THERAPY 07/17/2018 KETURAH CONNER MD, Ot R10.11 RIGHT UPPER QUADRANT PAIN 07/17/2018 KETURAH CONNER MD, Ot R14.0 ABDOMINAL DISTENSION (GASEOUS) 08/02/2018 KETURAH CONNER MD, Ot R10.11 RIGHT UPPER QUADRANT PAIN 08/02/2018 KETURAH CONNER MD Ot R14.0 ABDOMINAL DISTENSION (GASEOUS) 08/02/2018 KETURAH CONNER MD, Ot R10.11 RIGHT UPPER QUADRANT PAIN 08/02/2018 KIDO MD, TAKAAKI Ot R14.0 ABDOMINAL DISTENSION (GASEOUS) 2018 KETURAH CONNER MD Ot E11.9 TYPE 2 DIABETES MELLITUS WITHOUT COMPLIC 2018 KETURAH CONNER MD Ot E78.00 PURE HYPERCHOLESTEROLEMIA, UNSPECIFIED 2018 KETURAH CONNER MD Ot I10 ESSENTIAL (PRIMARY) HYPERTENSION 2018 KETURAH CONNER MD Ot K21.9 GASTRO-ESOPHAGEAL REFLUX DISEASE WITHOUT 2018 KETURAH CONNER MD Ot K81.1 CHRONIC CHOLECYSTITIS 2018 KTEURAH CONNER MD Ot M10.9 GOUT, UNSPECIFIED 2018 KETURAH CONNER MD Ot Z79.84 RESIDENTIAL (CURRENT) USE OF ORAL HYPOGLYC 2018 KETURAH CONNER MD Ot Z79.899 OTHER RESIDENTIAL (CURRENT) DRUG THERAPY 08/15/2018 KETURAH CONNER MD, Ot E11.9 TYPE 2 DIABETES MELLITUS WITHOUT COMPLIC 08/15/2018 KETURAH CONNER MD Ot E78.00 PURE HYPERCHOLESTEROLEMIA, UNSPECIFIED 08/15/2018 KETURAH CONNER MD Ot I10 ESSENTIAL (PRIMARY) HYPERTENSION 08/15/2018 KETURAH CONNER MD Ot K21.9 GASTRO-ESOPHAGEAL REFLUX DISEASE WITHOUT 08/15/2018 KETURAH CONNER MD Ot K81.1 CHRONIC CHOLECYSTITIS 08/15/2018 KETURAH CONNER MD Ot M10.9 GOUT, UNSPECIFIED 08/15/2018 KETURAH CONNER MD Ot Z79.84 INTERPRETER (CURRENT) USE OF ORAL HYPOGLYC 08/15/2018 KETURAH CONNER MD Ot Z79.899 OTHER RESIDENTIAL (CURRENT) DRUG THERAPY 08/16/2018 KETURAH CONNER MD Ot R10.11 RIGHT UPPER QUADRANT PAIN 08/16/2018 KETURAH CONNER MD Ot R14.0 ABDOMINAL DISTENSION (GASEOUS) 09/04/2018 RUTH DIOP MD, Ot E11.9 TYPE 2 DIABETES MELLITUS WITHOUT COMPLIC 09/04/2018 RUTH DIOP MD, Ot E78.00 PURE HYPERCHOLESTEROLEMIA, UNSPECIFIED 09/04/2018 RUTH DIOP MD Ot I10 ESSENTIAL (PRIMARY) HYPERTENSION 09/04/2018 RUTH DIOP MD Ot K21.9 GASTRO-ESOPHAGEAL REFLUX DISEASE WITHOUT 09/04/2018 RUTH DIOP MD, Ot K59.00 CONSTIPATION, UNSPECIFIED 09/04/2018 RUTH DIOP MD, Ot M54.5 LOW BACK PAIN 09/04/2018 RUTH DIOP MD, Ot N28.89 OTHER SPECIFIED DISORDERS OF KIDNEY AND 09/04/2018 RUTH DIOP MD, Ot N39.0 URINARY TRACT INFECTION, SITE NOT SPECIF 09/04/2018 RUTH DIOP MD, Ot Z79.82 INTERPRETER (CURRENT) USE OF ASPIRIN 09/04/2018 RUTH DIOP MD, Ot Z79.84 INTERPRETER (CURRENT) USE OF ORAL HYPOGLYC 09/04/2018 RUTH DIOP MD, Ot Z82.49 FAMILY HX OF ISCHEM HEART DIS AND OTH DI 09/04/2018 RUTH DIOP MD, Ot Z87.891 PERSONAL HISTORY OF NICOTINE DEPENDENCE 09/04/2018 RUTH DIOP MD, Ot Z90.49 ACQUIRED ABSENCE OF OTHER SPECIFIED PART Procedures There is no data. Results Test Result Range Lipid Panel - 01/29/16 08:21 C/HDL 3.7 3.7-6.7 Cholesterol 159 mg/dL 100-240 HDL 43 mg/dL 30-85 LDL-Calculated 82 mg/dL 0-100 Trig 169 mg/dL 35-160 VLDL 34 mg/dL 0-42 Microalbumin - 02/01/16 08:22 Microalb 6.0 mg/L 0.0-20.0 Uric Acid - 04/08/16 07:35 Uric Acid 3.9 mg/dL 2.6-7.2 Microalb/Creat - 11/10/16 09:15 Microalb <5.0 mg/L 0.0-20.0 UMicroalb/UCreat 5.75 mg/g 0.00-100.00 Urine Creatinine 87.0 mg/dl 0.0-50.0 Hemoglobin A1C - 02/20/17 11:21 % A1C 6.20 % 5.40-6.60 AvGlu 143 mg/dL 70-110 Uric Acid - 05/23/17 08:20 Uric Acid 3.7 mg/dL 2.6-7.2 Serum or plasma creatine kinase measurement (enzymatic [...] in VLDL measurement (mass/volume) 28 mg/dL 5-40 Hemoglobin A1C - 11/03/17 07:35 % A1C 6.30 % 5.40-6.60 AvGlu 148 mg/dL 70-110 Uric Acid - 02/20/18 08:20 Uric Acid 4.3 mg/dL 2.6-7.2 Capillary blood glucose measurement by glucometer (mass/volume) - 08/09/18 12:44 Capillary blood glucose measurement by glucometer (mass/volume) 116 mg/dL 70-110 Methicillin resistant Staphylococcus aureus (MRSA) screening culture - 08/09/18 12:50 Methicillin resistant Staphylococcus aureus (MRSA) screening culture NEG NRG Uric Acid - 08/28/18 08:40 Uric Acid 4.4 mg/dL 2.6-7.2 24 hour MicroAlb/ Creat ratio - 08/31/18 17:00 Complete urinalysis with reflex to culture - 09/02/18 23:59 Urine color determination YELLOW NRG Urine clarity determination CLEAR NRG Urine pH measurement by test strip 8 5-9 Specific gravity of urine by test strip 1.010 1.016-1.022 Urine protein assay by test strip, semi-quantitative 2+ NEGATIVE Urine glucose detection by automated test strip NEGATIVE NEGATIVE Erythrocytes detection in urine sediment by light microscopy 3+ NEGATIVE Urine ketones detection by automated test strip NEGATIVE NEGATIVE Urine nitrite detection by test strip NEGATIVE NEGATIVE Urine total bilirubin detection by test strip NEGATIVE NEGATIVE Urine urobilinogen measurement by automated test strip (mass/volume) 4 mg/dL NORMAL Urine leukocyte esterase detection by dipstick 2+ NEGATIVE Automated urine sediment erythrocyte count by microscopy (number/high power field) [HPF] NRG Automated urine sediment leukocyte count by microscopy (number/high power field) [HPF] NRG Bacteria detection in urine sediment by light microscopy FEW NRG Squamous epithelial cells detection in urine sediment by light microscopy 2-5 NRG Crystals detection in urine sediment by light microscopy NONE NRG Casts detection in urine sediment by light microscopy NONE NRG Mucus detection in urine sediment by light microscopy NEGATIVE NRG Complete urinalysis with reflex to culture YES NRG Bacterial urine culture - 09/02/18 23:59 Bacterial urine culture NG NRG Complete blood count (CBC) with automated white blood cell (WBC) differential - 09/03/18 00:06 Blood leukocytes automated count (number/volume) 12.2 10*3/uL 4.3-11.0 Blood erythrocytes automated count (number/volume) 4.40 10*6/uL 4.35-5.85 Venous blood hemoglobin measurement (mass/volume) 11.7 g/dL 13.3-17.7 Blood hematocrit (volume fraction) 37 % 40-54 Automated erythrocyte mean corpuscular volume 83 [foz_us] 80-99 Automated erythrocyte mean corpuscular hemoglobin (mass per erythrocyte) 27 pg 25-34 Automated erythrocyte mean corpuscular hemoglobin concentration measurement (mass/volume) 32 g/dL 32-36 Automated erythrocyte distribution width ratio 14.6 % 10.0- 14.5 Automated blood platelet count (count/volume) 499 10*3/uL 130-400 Automated blood platelet mean volume measurement 8.1 [foz_us] 7.4-10.4 Automated blood neutrophils/100 leukocytes 71 % 42-75 Automated blood lymphocytes/100 leukocytes 13 % 12-44 Blood monocytes/100 leukocytes 11 % 0-12 Automated blood eosinophils/100 leukocytes 5 % 0-10 Automated blood basophils/100 leukocytes 0 % 0-10 Blood neutrophils automated count (number/volume) 8.6 10*3 1.8-7.8 Blood lymphocytes automated count (number/volume) 1.6 10*3 1.0-4.0 Blood monocytes automated count (number/volume) 1.3 10*3 0.0- 1.0 Automated eosinophil count 0.6 10*3/uL 0.0-0.3 Automated blood basophil count (count/volume) 0.0 10*3/uL 0.0-0.1 Comprehensive metabolic panel - 09/03/18 00:06 Serum or plasma sodium measurement (moles/volume) 139 mmol/L 135-145 Serum or plasma potassium measurement (moles/volume) 3.7 mmol/L 3.6-5.0 Serum or plasma chloride measurement (moles/volume) 101 mmol/L 98-107 Carbon dioxide 24 mmol/L 21-32 Serum or plasma anion gap determination (moles/volume) 14 mmol/L 5-14 Serum or plasma urea nitrogen measurement (mass/volume) 13 mg/dL 7-18 Serum or plasma creatinine measurement (mass/volume) 1.24 mg/dL 0.60-1.30 Serum or plasma urea nitrogen/creatinine mass ratio 10 NRG Serum or plasma creatinine measurement with calculation of estimated glomerular filtration rate 59 NRG Serum or plasma glucose measurement (mass/volume) 115 mg/dL 70-105 Serum or plasma calcium measurement (mass/volume) 9.1 mg/dL 8.5-10.1 Serum or plasma total bilirubin measurement (mass/volume) 0.2 mg/dL 0.1-1.0 Serum or plasma alkaline phosphatase measurement (enzymatic activity/volume) 177 U/L 40-136 Serum or plasma aspartate aminotransferase measurement (enzymatic activity/volume) 11 U/L 5-34 Serum or plasma alanine aminotransferase measurement (enzymatic activity/volume) 16 U/L 0-55 Serum or plasma protein measurement (mass/volume) 6.7 g/dL 6.4-8.2 Serum or plasma albumin measurement (mass/volume) 3.6 g/dL 3.2-4.5 CALCIUM CORRECTED 9.4 mg/dL 8.5-10.1 Magnesium - 09/03/18 00:06 Magnesium 1.9 mg/dL 1.8-2.4 Lipase - 09/03/18 00:06 Lipase 19 U/L 8-78 Serum or plasma C reactive protein measurement (mass/volume) - 09/03/18 00:06 Serum or plasma C reactive protein measurement (mass/volume) 11.55 mg/dL 0.00-0.50 Encounters ACCT No. Visit Date/Time Discharge Status Pt. Type Provider Facility Loc./Unit Complaint [id number] 08/31/2018 17:37:00 08/31/2018 23:59:00 DIS Outpatient Kajal Harris [id number] 08/28/2018 10:35:00 08/28/2018 23:59:00 DIS Outpatient Kajal Harris [id number] 02/20/2018 13:04:00 02/20/2018 23:59:00 DIS Outpatient Kajal Harris [id number] 11/03/2017 10:58:00 11/03/2017 23:59:00 DIS Outpatient Kajal Harris [id number] 05/23/2017 11:51:00 05/23/2017 23:59:00 DIS Outpatient Kajal Harris [id number] 02/20/2017 11:21:00 02/20/2017 23:59:00 DIS Outpatient Kajal Harris [id number] 11/10/2016 10:36:00 11/10/2016 23:59:00 DIS Outpatient Kajal Harris [id number] 04/08/2016 15:17:00 04/08/2016 23:59:00 DIS Outpatient Kajal Harris [id number] 02/01/2016 08:50:00 02/01/2016 23:59:00 DIS Outpatient Peter Correa [id number] 01/29/2016 08:19:00 01/29/2016 23:59:00 DIS Outpatient Kajal Harris [id number] 02/20/2017 10:45:00 Document Registration [id number] 09/04/2018 09:15:00 09/04/2018 23:59:59 CLS Preadmit KETURAH CONNER MD [facility] RAD ABD PAIN [id number] 09/02/2018 23:17:00 09/03/2018 03:01:00 DIS Outpatient RUTH DIOP MD [facility] ER SEVERE LOWER BACK PAIN [id number] 2018 11:47:00 2018 19:20:00 DIS Outpatient KETURAH CONNER MD [facility] SDC BILIARY DYSKINESIA [id number] 07/30/2018 11:44:00 07/30/2018 23:59:59 CLS Outpatient KETURAH CONNER MD [facility] CARD RUQ PAIN,BLOATING [id number] 07/16/2018 07:20:00 07/16/2018 23:59:59 CLS Outpatient KETURAH CONNER MD [facility] RAD RUQ PAIN,BLOATING [id number] 06/29/2018 12:44:00 06/29/2018 16:05:00 DIS Outpatient KETURAH CONNER MD [facility] ENDO SCREENING/REFLUX [id number] 06/27/2018 05:53:00 06/27/2018 10:10:00 DIS Outpatient KETURAH CONNER MD [facility] PREOP COLONOSCOPY/EGD [id number] 10/19/2017 14:30:00 Document Registration [id number] 10/19/2017 12:24:00 Document Registration
[2018-09-15 07:25] LABS: BILIRUBIN,URINE NEGATIVE (NEGATIVE); CLARITY,URINE CLEAR; COLOR,URINE YELLOW; GLUCOSE, URINE (UA) NEGATIVE (NEGATIVE); KETONES,URINE NEGATIVE (NEGATIVE); LEUKOCYTE ESTERASE ,URINE 1+ (NEGATIVE); NITRITE,URINE NEGATIVE (NEGATIVE); PH,URINE 8 (5-9); PROTEIN,URINE 2+ (NEGATIVE); UROBILINOGEN,URINE 4 MG/DL (NORMAL)
--- NOTE | 2018-09-15 07:35 | ED GU-Male ---
General Stated Complaint: KIDNEY PAIN,TESTICAL PAIN Source: patient History of Present Illness Date Seen by Provider: Sep 15, 2018 Time Seen by Provider: 07:15 Initial Comments PT ARRIVES VIA POV FROM HOME PT STATES "CANCER" "MY KIDNEYS AND MY TESTICLES HURT" STATES SYMPTOMS ONGOING FOR OVER 6 MONTHS, WORSE SINCE YESTERDAY PAIN IS GREATER ON LEFT THAN RIGHT C/O PAIN /BURNING ON URINATION AND SOME PAIN IN ABDOMEN ON URINATION HAS ONGOING CONSTIPATION AND TAKES MIRALAX--HAS HAD BM IN LAST 24 HOURS HAD FEVER UP TO 102 ON 09/13/18 NO NAUSEA/VOMITING PT WAS RECENTLY DX WITH LEFT RENAL MASS ON ER VISIT 09/02/18 WAS SEEN AT LAST WEEK AND IS TO HAVE SURGERY, BUT HAS NOT BEEN SCHEDULED YET. TOOK HYDROCODONE 1 HOUR AGO, WITHOUT RELIEF. PCP: LIZ LEONARD/DR. GODWIN SURGEON: DR. CONNER Allergies and Home Medications Allergies Coded Allergies: No Known Drug Allergies (Unverified , 06/27/18) Home Medications Allopurinol 300 Mg Tablet, 300 MG PO BID, (Reported) Aspirin 81 Mg Tablet.dr, 81 MG PO DAILY, (Reported) Cephalexin 250 Mg Capsule, 250 MG PO BID Prescribed by: RUTH DIOP on 09/03/18 0252 Cetirizine HCl 10 Mg Tablet, 10 MG PO DAILY, (Reported) Cyclobenzaprine HCl 10 Mg Tablet, 10 MG PO PRN PRN for SPASMS, (Reported) Enalapril Maleate 20 Mg Tablet, 40 MG PO DAILY, (Reported) Famotidine 20 Mg Tablet, 10 MG PO DAILY PRN for INDIGESTION, (Reported) Hydrocodone Bit/Acetaminophen 1 Ea Tablet, 1 EACH PO Q4H PRN for PAIN-MODERATE Prescribed by: KETURAH CONNER on 08/09/18 1303 Indomethacin 50 Mg Capsule, 50 MG PO PRN, (Reported) Metformin HCl 500 Mg Tab.er.24h, 1 TAB PO BID, (Reported) Metoprolol Succinate 25 Mg Tab.er.24h, 25 MG PO DAILY Prescribed by: PAUL GARG on 10/20/17 1314 Oxycodone HCl/Acetaminophen 1 Each Tablet, 1 EACH PO Q4H PRN for PAIN-SEVERE Prescribed by: LEESA NORMAN on 09/15/18 0917 Pantoprazole Sodium 40 Mg Tablet., 40 MG PO DAILY Prescribed by: KETURAH CONNER on 06/29/18 1339 Simvastatin 20 Mg Tablet, 20 MG PO HS, (Reported) Sulfamethoxazole/Trimethoprim 1 Each Tablet, 1 EACH PO BID Prescribed by: LEESA NORMAN on 09/15/18 0914 Patient Home Medication List Home Medication List Reviewed: Yes Review of Systems Review of Systems Constitutional: see HPI, fever Respiratory: no symptoms reported Cardiovascular: no symptoms reported Gastrointestinal: see HPI, abdominal pain, constipation; No nausea, No vomiting Genitourinary: see HPI, burning, flank pain, pain Musculoskeletal: see HPI, back pain Skin: no symptoms reported Psychiatric/Neurological: No Symptoms Reported Endocrine: No Symptoms Reported Hematologic/Lymphatic: No Symptoms Reported Past Gekgwha-Mskgyz-Ibdury Hx Patient Social History Alcohol Use: Denies Use Recreational Drug Use: No Smoking Status: Former Smoker Type Used: Cigarettes Former Smoker, Quit: Jun 27, 1982 2nd Hand Smoke Exposure: No Recent Foreign Travel: No Contact w/Someone Who Travel: No Recent Hopitalizations: No Immunizations Up To Date Tetanus Booster (TDap): Unknown PED Vaccines UTD: No Date of Influenza Vaccine: Dec 18, 2017 Seasonal Allergies Seasonal Allergies: Yes Past Medical History Surgeries: Yes (JAW SURGERY; CARDIAC CATH 10/2017-NO INTERVENTION; E GD/COLONOSCOPY; CHOLECYSTECTOMY 08/09/18; REPAIR OF LEFT FEMUR AND PATELLA FRACTURES) Appendectomy, Cardiac, Orthopedic Respiratory: No Cardiac: Yes (CATH 10/2017--MODERATE CAD, NO INTERVENTION; RBBB) Coronary Artery Disease, High Cholesterol, Hypertension Neurological: No Sexually Transmitted Disease: No HIV/AIDS: No Genitourinary: Yes (LEFT RENAL MASS DX 09/02/18) Gastrointestinal: Yes Gastroesophageal Reflux, Chronic Constipation, Diverticulosis Musculoskeletal: Yes (LEFT FEMUR AND PATELLA FRACTURES REPAIRED; HAND FRACTURES--NO SURGERY) Fractures, Gout Endocrine: Yes Diabetes, Non-Insulin dep HEENT: Yes (GLASSES, DENTURES) Loss of Vision: Bilateral Hearing Impairment: Denies Cancer: No (LEFT RENAL MASS SUSPICIOUS FOR CANCER 09/02/18--NO SURGERY OR DEFINITE DX OF 09/15/18) Psychosocial: No Integumentary: No Blood Disorders: No Adverse Reaction/Blood Tranf: No (HAS HAD BLOOD WITH NO REACTION) Family Medical History Heart Disease, CAD Under 55 Years Old Physical Exam Vital Signs Capillary Refill : Height, Weight, BMI Height: 5'8.00" Weight: 190lbs. 3.0oz. 86.825183tn; 30.9 BMI Method:Stated General Appearance: WD/WN, no apparent distress, other (SITTING, SOMEWHAT FLAT AFFECT. 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, no motor/sensory deficits, alert, normal mood/affect, oriented x 3 Skin: normal color, warm/dry Focused Exam Lactate Level 09/15/18 07:45: Lactic Acid Level 1.89 Lactic Acid Level Laboratory Tests Test 09/15/18 07:45 Lactic Acid Level 1.89 MMOL/L (0.50-2.00) Progress/Results/Core Measures Suspected Sepsis SIRS Temperature: Pulse: Respiratory Rate: Laboratory Tests 09/15/18 07:45: White Blood Count 15.4H Blood Pressure / Mean: 09/15/18 07:45: Lactic Acid Level 1.89 Laboratory Tests 09/15/18 07:45: Creatinine 1.25, Platelet Count 620H, Total Bilirubin 0.4 Results/Orders Lab Results Laboratory Tests Test 09/15/18 07:07 09/15/18 07:45 Range/Units Urine Color YELLOW Urine Clarity CLEAR Urine pH 8 5-9 Urine Specific [place] 1.010 L 1.016-1.022 Urine Protein 2+ H NEGATIVE Urine Glucose (UA) NEGATIVE NEGATIVE Urine Ketones NEGATIVE NEGATIVE Urine Nitrite NEGATIVE NEGATIVE Urine Bilirubin NEGATIVE NEGATIVE Urine Urobilinogen 4 H NORMAL MG/DL Urine Leukocyte Esterase 1+ H NEGATIVE Urine RBC (Auto) 2+ H NEGATIVE Urine RBC 10-25 H /HPF Urine WBC 2-5 /HPF Urine Squamous Epithelial Cells 2-5 /HPF Urine Crystals PRESENT H /LPF Urine Amorphous Sediment FEW RASHMI PHOSPHATE H /LPF Urine Bacteria FEW H /HPF Urine Casts NONE /LPF Urine Mucus NEGATIVE /LPF Urine Culture Indicated YES White Blood Count 15.4 H 4.3-11.0 10^3/uL Red Blood Count 4.59 4.35-5.85 10^6/uL Hemoglobin 12.1 L 13.3-17.7 G/DL Hematocrit 39 L 40-54 % Mean Corpuscular Volume 84 80-99 FL Mean Corpuscular Hemoglobin 26 25-34 PG Mean Corpuscular Hemoglobin Concent 31 L 32-36 G/DL Red Cell Distribution Width 14.9 H 10.0-14.5 % Platelet Count 620 H 130-400 10^3/uL Mean Platelet Volume 8.2 7.4-10.4 FL Neutrophils (%) (Auto) 78 H 42-75 % Lymphocytes (%) (Auto) 9 L 12-44 % Monocytes (%) (Auto) 9 0-12 % Eosinophils (%) (Auto) 3 0-10 % Basophils (%) (Auto) 0 0-10 % Neutrophils # (Auto) 12.1 H 1.8-7.8 X 10^3 Lymphocytes # (Auto) 1.4 1.0-4.0 X 10^3 Monocytes # (Auto) 1.4 H 0.0-1.0 X 10^3 Eosinophils # (Auto) 0.5 H 0.0-0.3 10^3/uL Basophils # (Auto) 0.0 0.0-0.1 10^3/uL Neutrophils % (Manual) 74 % Lymphocytes % (Manual) 15 % Monocytes % (Manual) 8 % Eosinophils % (Manual) 3 % Blood Morphology Comment NORMAL Sodium Level 133 L 135-145 MMOL/L Potassium Level 4.3 3.6-5.0 MMOL/L Chloride Level 95 L 98-107 MMOL/L Carbon Dioxide Level 24 21-32 MMOL/L Anion Gap 14 5-14 MMOL/L Blood Urea Nitrogen 15 7-18 MG/DL Creatinine 1.25 0.60-1.30 MG/DL Estimat Glomerular Filtration Rate 58 BUN/Creatinine Ratio 12 Glucose Level 134 H 70-105 MG/DL Lactic Acid Level 1.89 0.50-2.00 MMOL/L Calcium Level 10.1 8.5-10.1 MG/DL Corrected Calcium 10.3 H 8.5-10.1 MG/DL Total Bilirubin 0.4 0.1-1.0 MG/DL Aspartate Amino Transf (AST/SGOT) 15 5-34 U/L Alanine Aminotransferase (ALT/SGPT) 24 0-55 U/L Alkaline Phosphatase 279 H 40-136 U/L Total Protein 7.4 6.4-8.2 GM/DL Albumin 3.8 3.2-4.5 GM/DL My Orders Orders - EMERSON,LEESA Spears Ed Iv/Invasive Line Start (09/15/18 07:17) Cbc With Automated Diff (09/15/18 07:17) Comprehensive Metabolic Panel (09/15/18 07:17) Ua Culture If Indicated (09/15/18 07:17) Lactic Acid Analyzer (09/15/18 07:22) Blood Culture (09/15/18 07:22) Urine Culture (09/15/18 07:07) Manual Differential (09/15/18 07:45) Ct Chest/Abdomen/Pelvis Wo (09/15/18 08:19) Ceftriaxone For Iv Use (Rocephin For I (09/15/18 09:00) Fentanyl Injection (Sublimaze Injection (09/15/18 09:15) Ceftriaxone For Iv Use (Rocephin For I (09/15/18 08:58) Water (Sterile) For Injection (Sterile W (09/15/18 08:58) Medications Given in ED Current Medications Medications Dose Ordered Sig/Cristóbal Route Start Time Stop Time Status Last Admin Dose Admin Ceftriaxone Sodium 1,000 mg STK-MED ONCE .ROUTE 09/15/18 08:58 09/15/18 09:04 DC 09/15/18 09:18 1,000 MG Sterile Water 10 ml @ ud STK-MED ONCE .ROUTE 09/15/18 08:58 09/15/18 09:04 DC 09/15/18 09:19 10 MLS/HR Vital Signs/I&O Capillary Refill : Progress Note : Progress Note UNEVENTFUL ER STAY PT DECLINES PAIN MEDICATIONS--STATES HIS PAIN IS BETTER, AND FEELS LIKE MAYBE HE DIDN'T WAIT LONG ENOUGH FOR THE HYDROCODONE TO START WORKING Diagnostic Imaging Comments CT CHEST/ABDOMEN/PELVIS--NO SIGNIFICANT CHANGE FROM PREVIOUS---LEFT RENAL CELL CARCINOMA WITH PULMONARY METASTATIC DISEASE AND LOCAL METASTATIC DISEASE, SPLENOMEGALY, 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 PER RADIOLOGIST REPORT AT 0859 Reviewed: Reviewed by Me Departure Impression Primary Impression: Urinary tract infection Additional Impressions: Metastasis from malignant neoplasm of kidney Generalized abdominal pain Disposition: 01 HOME, SELF-CARE Condition: Improved Departure-Patient Inst. Referrals: NATACHA LEONARD (PCP/Family) Primary Care Physician Patient Instructions: Kidney Cancer, Urinary Tract Infection, Adult (DC) Add. Discharge Instructions: LOTS OF CLEAR LIQUIDS--WATER, BROTH, JELLO, GATORADE MOTRIN NEEDED FOR PAIN OR FEVER CONTINUE YOUR HYDROCODONE PRESCRIBED FOLLOW UP WITH YOUR DR ON MONDAY FOR RECHECK, AND FOLLOW UP WITH IESHA NEXT WEEK TO ARRANGE SURGERY/FURTHER TREATMENT Scripts Oxycodone HCl/Acetaminophen (Oxycodone-Acetaminophen 5-325) 1 Each Tablet 1 EACH PO Q4H PRN for PAIN-SEVERE MDD 6, #20 TAB Prov: LEESA NORMAN DO 09/15/18 Sulfamethoxazole/Trimethoprim (Bactrim Ds Tablet) 1 Each Tablet 1 EACH PO BID, #20 TAB Prov: LEESA NORMAN DO 09/15/18 LEESA NORMAN DO Sep 15, 2018 07:35
[2018-09-15 07:36] LABS: BACTERIA,URINE FEW /HPF
[2018-09-15 07:37] LABS: AMORPHOUS SEDIMENT,UR FEW AMOR PHOSPHATE /LPF
[2018-09-15 07:57] LABS: BASOPHILS % (AUTO) 0 % (0-10); EOSINOPHILS # (AUTO) 0.5 10^3/uL (0.0-0.3); EOSINOPHILS % (AUTO) 3 % (0-10); HEMATOCRIT 39 % (40-54); HEMOGLOBIN 12.1 G/DL (13.3-17.7); LYMPHOCYTES # (AUTO) 1.4 X 10^3 (1.0-4.0); LYMPHOCYTES % (AUTO) 9 % (12-44); MEAN CORPUSCULAR HEMOGLOBIN 26 PG (25-34); MEAN CORPUSCULAR HGB CONC 31 G/DL (32-36); MEAN CORPUSCULAR VOLUME 84 FL (80-99); MEAN PLATELET VOLUME 8.2 FL (7.4-10.4); MONOCYTES # (AUTO) 1.4 X 10^3 (0.0-1.0); MONOCYTES % (AUTO) 9 % (0-12); NEUTROPHILS # (AUTO) 12.1 X 10^3 (1.8-7.8); NEUTROPHILS % (AUTO) 78 % (42-75); PLATELET COUNT 620 10^3/uL (130-400); RED CELL DISTRIBUTION WIDTH 14.9 % (10.0-14.5); WHITE BLOOD COUNT 15.4 10^3/uL (4.3-11.0)
[2018-09-15 08:16] LABS: ALBUMIN 3.8 GM/DL (3.2-4.5); BILIRUBIN,TOTAL 0.4 MG/DL (0.1-1.0); CALCIUM 10.1 MG/DL (8.5-10.1); CREATININE SERUM 1.25 MG/DL (0.60-1.30); POTASSIUM 4.3 MMOL/L (3.6-5.0); TOTAL PROTEIN 7.4 GM/DL (6.4-8.2)
[2018-09-15 08:18] LABS: EOSINOPHILS % (MANUAL) 3 %; LYMPHOCYTES % (MANUAL) 15 %; MONOCYTES % (MANUAL) 8 %; NEUTROPHILS % (MANUAL) 74 %; RBC MORPH NORMAL
--- NOTE | 2018-09-15 08:51 | Diagnostic Imaging Report ---
PROCEDURE: CT chest, abdomen, and pelvis without contrast. TECHNIQUE: Multiple contiguous axial images were obtained through the chest, abdomen, and pelvis without the use of intravenous contrast. Auto Exposure Controls were utilized during the CT exam to meet ALARA standards for radiation dose reduction. Indication: Fever, low back pain for 10 months, left renal mass, dyspnea. Comparison: CT of the abdomen and pelvis 09/03/2018. Discussion: Chest: Numerous nodules are noted throughout both lungs, consistent with metastatic disease. The largest measures 1.2 cm. No focal consolidation or bronchiectasis. Normal heart size. Aneurysmal dilatation of the ascending aorta measuring 4.4 cm. The arch is normal in configuration. Pulmonary arteries are not dilated. No pathologically enlarged lymph nodes are identified. Abdomen/pelvis: The gallbladder is surgically absent. No liver mass on this noncontrast exam. The pancreas, stomach, and right adrenal gland are unremarkable. Soft tissue nodule along the left hemidiaphragm could represent a splenule or metastatic focus. The spleen is enlarged measuring 15 cm. Nodular involvement of the left adrenal gland is consistent with malignancy. Large mass replacing the left kidney is again noted. Surrounding inflammatory changes and adenopathy is consistent with local metastatic disease. Retroperitoneal adenopathy is also noted. Overall the appearance is similar to that of the prior exam. The prostate and urinary bladder are unremarkable. Mild diverticulosis with no secondary evidence for diverticulitis. The appendix is surgically absent. No obstruction, pneumatosis, or pneumoperitoneum. No acute osseous abnormality identified. Impression: 1. Left renal cell carcinoma with pulmonary metastatic disease and local metastatic disease as described. 2. Splenomegaly. 3. Aneurysmal dilatation of the ascending aorta measuring up to 4.4 cm. 4. Diverticulosis. Dictated by: Dictated on workstation # [id number]
[2018-09-15] MEDS ORDERED: WATER (STERILE) FOR INJECTION 10 ML ONE (08:58)
[2018-09-15] MEDS ORDERED: cefTRIAXone 1,000 MG IV (ROCEPHIN) VIAL ONE (08:58)
[2018-09-15] MEDS ORDERED: cefTRIAXone FOR IV USE 1,000 MG in WATER (STERILE) FOR INJECTION 10 ML IV ONE (09:00)
[2018-09-15] MEDS ORDERED: SULF1TAB35 PO (09:14)
[2018-09-15] MEDS ORDERED: fentaNYL INJECTION 100 MCG/2 ML AMP IVP ONE (09:15)
[2018-09-15] MEDS ORDERED: OXYC-471 PO (09:17)
--- NOTE | 2018-09-15 09:30 | NUR ---
Pt declined fentanyl reporting pain was better at this time.
[2018-09-15 09:55] VITALS: BP 125/88
== END 2018-09-15 09:53 | disposition home or self-care (01) ==
LOC: EDUNIT# 06:41 → ER 06:44
DX: C64.9 Malignant neoplasm of unspecified kidney, except renal pelvis (principal); C79.9 Secondary malignant neoplasm of unspecified site; N39.0 Urinary tract infection, site not specified; I10 Essential (primary) hypertension; E78.00 Pure hypercholesterolemia, unspecified; I25.10 Atherosclerotic heart disease of native coronary artery without angina pectoris; K21.9 Gastro-esophageal reflux disease without esophagitis; E11.9 Type 2 diabetes mellitus without complications; K59.09 Other constipation; Z87.19 Personal history of other diseases of the digestive system; Z79.82 Long term (current) use of aspirin; Z79.84 Long term (current) use of oral hypoglycemic drugs; Z87.891 Personal history of nicotine dependence; Z90.49 Acquired absence of other specified parts of digestive tract
CPT/HCPCS: 36415; 71250; 74176; 80053; 81000; 83605; 85007; 85027; 87040; 87088; 96365

== ENCOUNTER 2018-09-17 21:14 | Inpatient (IN) | payer BC ==
[~2018-09-17] VITALS: Ht 175.3 cm; Wt 89.5 kg
[~2018-09-17 21:14] MED LIST changes: +OXYC-471 PO; +SULF1TAB35 PO
--- OUTSIDE RECORDS SUMMARY | 2018-09-17 21:20 | XMS REPORT | Continuity of Care Document ---
Author Organization Unknown Address Unknown Allergies Active Description Code Type Severity Reaction Onset Reported/Identified Relationship to Patient Clinical Status Yes NO KNOWN DRUG ALLERGIES UNKNOWN NO KNOWN DRUG ALLERG Yes NO KNOWN DRUG ALLERGIES UNKNOWN UNKNOWN Yes No Known Drug Allergies [id number] Drug Allergy Unknown N/A 06/27/2018 Medications There [...] W 401.9 UNSPECIFIED ESSENTIAL HYPERTENSION 11/10/2016 Kajal Hraris W E11.9 TYPE 2 DIABETES MELLITUS WITHOUT COMPLICATIONS 11/10/2016 Kajal Harris E78.5 HYPERLIPIDEMIA, UNSPECIFIED 11/10/2016 Kajal Harris W I10 ESSENTIAL (PRIMARY) HYPERTENSION 11/10/2016 Kajal Hraris 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, RIGHT [...] 10/20/2017 Ot I25.110 ATHSCL HEART DISEASE OF [place] ART W 10/20/2017 Ot Z79.84 VESSEL ENGINEER (CURRENT) USE OF ORAL HYPOGLYC 10/20/2017 Ot Z79.899 OTHER MCC (CURRENT) DRUG THERAPY 10/20/2017 Ot Z87.891 PERSONAL HISTORY OF NICOTINE DEPENDENCE 10/28/2017 Ot E11.9 TYPE 2 DIABETES MELLITUS WITHOUT COMPLIC 10/28/2017 Ot E78.5 HYPERLIPIDEMIA, UNSPECIFIED 10/28/2017 Ot I10 ESSENTIAL (PRIMARY) HYPERTENSION 10/28/2017 Ot I25.10 ATHSCL HEART DISEASE OF [place] CORONARY 10/28/2017 Ot Z79.84 MCC (CURRENT) USE OF ORAL HYPOGLYC 10/28/2017 Ot [...] 11/03/2017 Ot I25.110 ATHSCL HEART DISEASE OF [place] ART W 11/03/2017 Ot Z79.84 MCC (CURRENT) USE OF ORAL HYPOGLYC 11/03/2017 Ot Z79.899 OTHER VESSEL ENGINEER (CURRENT) DRUG THERAPY 11/03/2017 Ot Z87.891 PERSONAL [...] GOUT DUE TO RENAL IMPAIRMENT, RIGHT HIP 06/27/2018 KETURAH CONNER MD Ot Z01.818 ENCOUNTER FOR OTHER PREPROCEDURAL EXAMIN 06/28/2018 KETURAH CONNER MD, Ot Z01.818 ENCOUNTER FOR OTHER PREPROCEDURAL EXAMIN 06/29/2018 KETURAH CONNER MD, Ot E11.9 TYPE 2 DIABETES MELLITUS WITHOUT COMPLIC 06/29/2018 KETURAH CONNER MD Ot E78.00 PURE HYPERCHOLESTEROLEMIA, UNSPECIFIED 06/29/2018 KETURAH CONNER MD Ot I10 ESSENTIAL (PRIMARY) HYPERTENSION 06/29/2018 KETURAH CONNER MD Ot K21.0 GASTRO-ESOPHAGEAL REFLUX DISEASE WITH ES 06/29/2018 KETURAH CONNER MD, Ot K29.70 GASTRITIS, UNSPECIFIED, WITHOUT BLEEDING 06/29/2018 KETURAH CONNER MD, Ot K44.9 DIAPHRAGMATIC HERNIA WITHOUT OBSTRUCTION 06/29/2018 KETURAH CONNER MD, Ot K57.30 DVRTCLOS OF LG INT W/O PERFORATION OR AB 06/29/2018 KETURAH CONNER MD Ot K64.1 SECOND DEGREE HEMORRHOIDS 06/29/2018 KETURAH CONNER MD, Ot M10.9 GOUT, UNSPECIFIED 06/29/2018 KETURAH CONNER MD Ot Z12.11 ENCOUNTER FOR SCREENING FOR MALIGNANT NE 06/29/2018 KETURAH CONNER MD Ot Z79.84 VESSEL ENGINEER (CURRENT) USE OF ORAL HYPOGLYC 06/29/2018 KETURAH CONNER MD, Ot Z79.899 OTHER MCC (CURRENT) DRUG THERAPY 07/03/2018 KETURAH CONNER MD, [...] NE 07/03/2018 KETURAH CONNER MD, Ot Z79.84 VESSEL ENGINEER (CURRENT) USE OF ORAL HYPOGLYC 07/03/2018 KETURAH CONNER MD, Ot Z79.899 OTHER VESSEL ENGINEER (CURRENT) DRUG THERAPY 07/06/2018 KETURAH CONNER MD, [...] NE 07/06/2018 KETURAH CONNER MD, Ot Z79.84 MCC (CURRENT) USE OF ORAL HYPOGLYC 07/06/2018 KETURAH CONNER MD, Ot Z79.899 OTHER MCC (CURRENT) DRUG THERAPY 07/17/2018 KETURAH CONNER MD, Ot R10.11 RIGHT UPPER QUADRANT PAIN 07/17/2018 KETURAH CONNER MD Ot R14.0 ABDOMINAL DISTENSION (GASEOUS) 08/02/2018 KETURAH CONNER MD, Ot R10.11 RIGHT UPPER QUADRANT PAIN 08/02/2018 KETURAH CONNER MD, Ot R14.0 ABDOMINAL DISTENSION (GASEOUS) 08/02/2018 KETURAH CONNER MD Ot R10.11 RIGHT UPPER QUADRANT PAIN 08/02/2018 KETURAH CONNER MD Ot R14.0 ABDOMINAL DISTENSION (GASEOUS) 2018 KETURAH CONNER MD, Ot E11.9 TYPE 2 DIABETES MELLITUS WITHOUT COMPLIC 2018 KETURAH CONNER MD Ot E78.00 PURE HYPERCHOLESTEROLEMIA, UNSPECIFIED 2018 KETURAH CONNER MD Ot I10 ESSENTIAL (PRIMARY) HYPERTENSION 2018 KETURAH CONNER MD Ot K21.9 GASTRO-ESOPHAGEAL REFLUX DISEASE WITHOUT 2018 KETURAH CONNER MD Ot K81.1 CHRONIC CHOLECYSTITIS 2018 KETURAH CONNER MD Ot M10.9 GOUT, UNSPECIFIED 2018 KETURAH CONNER MD Ot Z79.84 VESSEL ENGINEER (CURRENT) USE OF ORAL HYPOGLYC 2018 KETURAH CONNER MD Ot Z79.899 OTHER VESSEL ENGINEER (CURRENT) DRUG THERAPY 08/15/2018 KETURAH CONNER MD, Ot E11.9 TYPE 2 DIABETES MELLITUS WITHOUT COMPLIC 08/15/2018 KETURAH CONNER MD Ot E78.00 PURE HYPERCHOLESTEROLEMIA, UNSPECIFIED 08/15/2018 KETURAH CONNER MD Ot I10 ESSENTIAL (PRIMARY) HYPERTENSION 08/15/2018 KETURAH CONNER MD Ot K21.9 GASTRO-ESOPHAGEAL REFLUX DISEASE WITHOUT 08/15/2018 KETURAH CONNER MD Ot K81.1 CHRONIC CHOLECYSTITIS 08/15/2018 KETURAH CONNER MD, Ot M10.9 GOUT, UNSPECIFIED 08/15/2018 KETURAH CONNER MD Ot Z79.84 MCC (CURRENT) USE OF ORAL HYPOGLYC 08/15/2018 KETURAH CONNER MD Ot Z79.899 OTHER MCC (CURRENT) DRUG THERAPY 08/16/2018 KETURAH CONNER MD Ot R10.11 RIGHT UPPER QUADRANT PAIN 08/16/2018 KETURAH CONNER MD Ot R14.0 ABDOMINAL DISTENSION (GASEOUS) 09/03/2018 RUTH DIOP MD Ot E11.9 TYPE 2 DIABETES MELLITUS WITHOUT COMPLIC 09/03/2018 RUTH DIOP MD Ot E78.00 PURE HYPERCHOLESTEROLEMIA, UNSPECIFIED 09/03/2018 RUTH DIOP MD Ot I10 ESSENTIAL (PRIMARY) HYPERTENSION 09/03/2018 RUTH DIOP MD, Ot K21.9 GASTRO-ESOPHAGEAL REFLUX DISEASE WITHOUT 09/03/2018 RUTH DIOP MD Ot K59.00 CONSTIPATION, UNSPECIFIED 09/03/2018 RUTH DIOP MD, Ot M54.5 LOW BACK PAIN 09/03/2018 RUTH DIOP MD, Ot N28.89 OTHER SPECIFIED DISORDERS OF KIDNEY AND 09/03/2018 RUTH DIOP MD, Ot N39.0 URINARY TRACT INFECTION, SITE NOT SPECIF 09/03/2018 RUTH DIOP MD, Ot Z79.82 MCC (CURRENT) USE OF ASPIRIN 09/03/2018 RUTH DIOP MD, Ot Z79.84 VESSEL ENGINEER (CURRENT) USE OF ORAL HYPOGLYC 09/03/2018 RUTH DIOP MD, Ot Z82.49 FAMILY HX OF [place] HEART DIS AND OTH DI 09/03/2018 RUTH DIOP MD, Ot Z87.891 PERSONAL HISTORY OF NICOTINE DEPENDENCE 09/03/2018 RUTH DIOP MD, Ot Z90.49 ACQUIRED ABSENCE OF OTHER SPECIFIED PART 09/04/2018 RUTH DIOP MD Ot E11.9 TYPE 2 DIABETES MELLITUS WITHOUT COMPLIC 09/04/2018 RUTH DIOP MD Ot E78.00 PURE HYPERCHOLESTEROLEMIA, UNSPECIFIED 09/04/2018 RUTH DIOP MD Ot I10 ESSENTIAL (PRIMARY) HYPERTENSION 09/04/2018 RUTH DIOP MD, Ot K21.9 GASTRO-ESOPHAGEAL REFLUX DISEASE WITHOUT 09/04/2018 RUTH DIOP MD Ot K59.00 CONSTIPATION, UNSPECIFIED 09/04/2018 RUTH DIOP MD, Ot M54.5 LOW BACK PAIN 09/04/2018 RUTH DIOP MD Ot N28.89 OTHER SPECIFIED DISORDERS OF KIDNEY AND 09/04/2018 RUTH DIOP MD Ot N39.0 URINARY TRACT INFECTION, SITE NOT SPECIF 09/04/2018 RUTH DIOP MD Ot Z79.82 VESSEL ENGINEER (CURRENT) USE OF ASPIRIN 09/04/2018 RUTH DIOP MD, Ot Z79.84 VESSEL ENGINEER (CURRENT) USE OF ORAL HYPOGLYC 09/04/2018 RUTH DIOP MD, Ot Z82.49 FAMILY HX OF [place]HE[place] HEART DIS AND OTH DI 09/04/2018 RUTH DIOP MD, Ot Z87.891 PERSONAL HISTORY OF NICOTINE DEPENDENCE 09/04/2018 RUTH DIOP MD, Ot Z90.49 ACQUIRED ABSENCE OF OTHER SPECIFIED PART 09/15/2018 Ot R07.89 OTHER CHEST PAIN 09/15/2018 KETURAH CONNER MD, Ot R10.11 RIGHT UPPER QUADRANT PAIN 09/15/2018 KETURAH CONNER MD Ot R14.0 ABDOMINAL DISTENSION (GASEOUS) 09/15/2018 KETURAH CONNER MD, Ot R10.11 RIGHT UPPER QUADRANT PAIN 09/15/2018 KETURAH CONNER MD, Ot R14.0 ABDOMINAL DISTENSION [...] reactive protein measurement (mass/volume) 11.55 mg/dL 0.00-0.50 Complete urinalysis with reflex to culture - 09/15/18 07:07 Urine color determination YELLOW NRG Urine clarity determination CLEAR NRG Urine pH measurement by test strip 8 5-9 Specific gravity of urine by test strip 1.010 1.016-1.022 Urine protein assay by test strip, semi-quantitative 2+ NEGATIVE Urine glucose detection by automated test strip NEGATIVE NEGATIVE Erythrocytes detection in urine sediment by light microscopy 2+ NEGATIVE Urine ketones detection by automated test strip NEGATIVE NEGATIVE Urine nitrite detection by test strip NEGATIVE NEGATIVE Urine total bilirubin detection by test strip NEGATIVE NEGATIVE Urine urobilinogen measurement by automated test strip (mass/volume) 4 mg/dL NORMAL Urine leukocyte esterase detection by dipstick 1+ NEGATIVE Automated urine sediment erythrocyte count by microscopy (number/high power field) [HPF] NRG Automated urine sediment leukocyte count by microscopy (number/high power field) [HPF] NRG Bacteria detection in urine sediment by light microscopy FEW NRG Squamous epithelial cells detection in urine sediment by light microscopy 2-5 NRG Crystals detection in urine sediment by light microscopy PRESENT NRG Casts detection in urine sediment by light microscopy NONE NRG Mucus detection in urine sediment by light microscopy NEGATIVE NRG Complete urinalysis with reflex to culture YES NRG Amorphous sediment detection in urine sediment by light microscopy FEW RASHMI PHOSPHATE NRG Bacterial urine culture - 09/15/18 07:07 Bacterial urine culture NG NRG Bacterial blood culture - 09/15/18 07:40 Bacterial blood culture NG NRG Complete blood count (CBC) with automated white blood cell (WBC) differential - 09/15/18 07:45 Blood leukocytes automated count (number/volume) 15.4 10*3/uL 4.3-11.0 Blood erythrocytes automated count (number/volume) 4.59 10*6/uL 4.35-5.85 Venous blood hemoglobin measurement (mass/volume) 12.1 g/dL 13.3-17.7 Blood hematocrit (volume fraction) 39 % 40-54 Automated erythrocyte mean corpuscular volume 84 [foz_us] 80-99 Automated erythrocyte mean corpuscular hemoglobin (mass per erythrocyte) 26 pg 25-34 Automated erythrocyte mean corpuscular hemoglobin concentration measurement (mass/volume) 31 g/dL 32-36 Automated erythrocyte distribution width ratio 14.9 % 10.0- 14.5 Automated blood platelet count (count/volume) 620 10*3/uL 130-400 Automated blood platelet mean volume measurement 8.2 [foz_us] 7.4-10.4 Automated blood neutrophils/100 leukocytes 78 % 42-75 Automated blood lymphocytes/100 leukocytes 9 % 12-44 Blood monocytes/100 leukocytes 9 % 0-12 Automated blood eosinophils/100 leukocytes 3 % 0-10 Automated blood basophils/100 leukocytes 0 % 0-10 Blood neutrophils automated count (number/volume) 12.1 10*3 1.8-7.8 Blood lymphocytes automated count (number/volume) 1.4 10*3 1.0-4.0 Blood monocytes automated count (number/volume) 1.4 10*3 0.0- 1.0 Automated eosinophil count 0.5 10*3/uL 0.0-0.3 Automated blood basophil count (count/volume) 0.0 10*3/uL 0.0-0.1 Blood lactic acid measurement (moles/volume) - 09/15/18 07:45 Blood lactic acid measurement (moles/volume) 1.89 mmol/L 0.50- 2.00 Comprehensive metabolic panel - 09/15/18 07:45 Serum or plasma sodium measurement (moles/volume) 133 mmol/L 135-145 Serum or plasma potassium measurement (moles/volume) 4.3 mmol/L 3.6-5.0 Serum or plasma chloride measurement (moles/volume) 95 mmol/L 98-107 Carbon dioxide 24 mmol/L 21-32 Serum or plasma anion gap determination (moles/volume) 14 mmol/L 5-14 Serum or plasma urea nitrogen measurement (mass/volume) 15 mg/dL 7-18 Serum or plasma creatinine measurement (mass/volume) 1.25 mg/dL 0.60-1.30 Serum or plasma urea nitrogen/creatinine mass ratio 12 NRG Serum or plasma creatinine measurement with calculation of estimated glomerular filtration rate 58 NRG Serum or plasma glucose measurement (mass/volume) 134 mg/dL 70-105 Serum or plasma calcium measurement (mass/volume) 10.1 mg/dL 8.5-10.1 Serum or plasma total bilirubin measurement (mass/volume) 0.4 mg/dL 0.1-1.0 Serum or plasma alkaline phosphatase measurement (enzymatic activity/volume) 279 U/L 40-136 Serum or plasma aspartate aminotransferase measurement (enzymatic activity/volume) 15 U/L 5-34 Serum or plasma alanine aminotransferase measurement (enzymatic activity/volume) 24 U/L 0-55 Serum or plasma protein measurement (mass/volume) 7.4 g/dL 6.4-8.2 Serum or plasma albumin measurement (mass/volume) 3.8 g/dL 3.2-4.5 CALCIUM CORRECTED 10.3 mg/dL 8.5-10.1 Manual absolute plasma cell count - 09/15/18 07:45 Blood monocytes/100 leukocytes 8 % NRG Manual blood segmented neutrophils/100 leukocytes 74 % NRG Manual blood lymphocytes/100 leukocytes 15 % NRG Manual eosinophils/100 leukocytes in nose 3 % NRG Blood erythrocyte morphology finding identification NORMAL NRG Bacterial blood culture - 09/15/18 07:45 Bacterial blood culture NG NRG Encounters ACCT No. Visit Date/Time Discharge Status Pt. Type Provider Facility Loc./Unit Complaint [id number] 08/31/2018 17:37:00 08/31/2018 23:59:00 DIS Outpatient Kajal Harris [id number] 08/28/2018 10:35:00 08/28/2018 23:59:00 DIS Outpatient Kajal Harris [id number] 02/20/2018 13:04:00 02/20/2018 23:59:00 DIS Outpatient Kimberly, Kajal [id number] 11/03/2017 10:58:00 11/03/2017 23:59:00 DIS Outpatient Kimberly, Kajal [id number] 05/23/2017 11:51:00 05/23/2017 23:59:00 DIS Outpatient Kimberly, Kajal [id number] 02/20/2017 11:21:00 02/20/2017 23:59:00 DIS Outpatient Kimberly, Kajal [id number] 11/10/2016 10:36:00 11/10/2016 23:59:00 DIS Outpatient Kimberly, Kajal [id number] 04/08/2016 15:17:00 04/08/2016 23:59:00 DIS Outpatient Kimberly, Kajal [id number] 02/01/2016 08:50:00 02/01/2016 23:59:00 DIS Outpatient Peter Correa [id number] 01/29/2016 08:19:00 01/29/2016 23:59:00 DIS Outpatient Kimberly, Kajal [id number] 02/20/2017 10:45:00 Document Registration [id number] 09/15/2018 06:44:00 09/15/2018 09:53:00 DIS Emergency EMERSON DO, LEESA K [facility] ER KIDNEY PAIN,TESTICAL PAIN [id number] 09/04/2018 09:15:00 09/04/2018 23:59:59 CLS Preadmit KETURAH CONNER MD [facility] RAD ABD PAIN [id number] 09/02/2018 23:17:00 09/03/2018 03:01:00 DIS Emergency RUTH DIOP MD [facility] ER SEVERE LOWER BACK PAIN [id number] 2018 11:47:00 2018 19:20:00 DIS Outpatient KETURAH CONNER MD [facility] SDC BILIARY DYSKINESIA [id number] 07/30/2018 11:44:00 07/30/2018 23:59:59 CLS Outpatient KETURAH CONNER MD [facility] CARD RUQ PAIN,BLOATING [id number] 07/16/2018 07:20:00 07/16/2018 23:59:59 CLS Outpatient KETURAH CONNER MD [facility] RAD RUQ PAIN,BLOATING [id number] 06/29/2018 12:44:00 06/29/2018 16:05:00 DIS Outpatient KETURAH CONNER MD [facility] ENDO SCREENING/REFLUX [id number] 06/27/2018 05:53:00 06/27/2018 10:10:00 DIS Outpatient KETURAH CONNER MD [facility] PREOP COLONOSCOPY/EGD [id number] 10/19/2017 14:30:00 Document Registration [id number] 10/19/2017 12:24:00 Document Registration
[2018-09-17] MEDS ORDERED: NS IV 1000 ML 1,000 ML IV ONE (21:31)
[2018-09-17 21:45] LABS: BILIRUBIN,URINE NEGATIVE (NEGATIVE); CLARITY,URINE SLIGHTLY CLOUDY; GLUCOSE, URINE (UA) NEGATIVE (NEGATIVE); KETONES,URINE NEGATIVE (NEGATIVE); LEUKOCYTE ESTERASE ,URINE 1+ (NEGATIVE); NITRITE,URINE NEGATIVE (NEGATIVE); PH,URINE 8 (5-9); PROTEIN,URINE 2+ (NEGATIVE); UROBILINOGEN,URINE 4 MG/DL (NORMAL)
[2018-09-17 21:49] LABS: COLOR,URINE YELLOW
[2018-09-17 21:50] LABS: AMORPHOUS SEDIMENT,UR MOD AMOR PHOSPHATE /LPF; BACTERIA,URINE FEW /HPF; RBC,URINE 0-2 /HPF; WBC,URINE 0-2 /HPF
--- NOTE | 2018-09-17 22:08 | NUR ---
MULTIPLE ATTEMPTS FOR LAB DRAWN UNSUCCESSFUL. LAB WILL ATTEMPT AGAIN.
[2018-09-17 22:40] LABS: BASOPHILS # (AUTO) 0.1 10^3/uL (0.0-0.1); BASOPHILS % (AUTO) 0 % (0-10); EOSINOPHILS # (AUTO) 0.5 10^3/uL (0.0-0.3); EOSINOPHILS % (AUTO) 4 % (0-10); HEMATOCRIT 36 % (40-54); HEMOGLOBIN 11.4 G/DL (13.3-17.7); LYMPHOCYTES # (AUTO) 1.4 X 10^3 (1.0-4.0); LYMPHOCYTES % (AUTO) 10 % (12-44); MEAN CORPUSCULAR HEMOGLOBIN 27 PG (25-34); MEAN CORPUSCULAR HGB CONC 31 G/DL (32-36); MEAN CORPUSCULAR VOLUME 85 FL (80-99); MEAN PLATELET VOLUME 8.3 FL (7.4-10.4); MONOCYTES # (AUTO) 1.1 X 10^3 (0.0-1.0); MONOCYTES % (AUTO) 8 % (0-12); NEUTROPHILS # (AUTO) 10.9 X 10^3 (1.8-7.8); NEUTROPHILS % (AUTO) 78 % (42-75); PLATELET COUNT 538 10^3/uL (130-400); RED CELL DISTRIBUTION WIDTH 14.9 % (10.0-14.5); WHITE BLOOD COUNT 13.9 10^3/uL (4.3-11.0)
[2018-09-17 22:52] LABS: PROTHROMBIN TIME PATIENT 13.9 SEC (12.2-14.7)
[2018-09-17] MEDS: fentaNYL INJECTION 100 MCG/2 ML AMP ONE ×2 (22:57→22:59)
[2018-09-17 22:58] LABS: ALBUMIN 3.4 GM/DL (3.2-4.5); BILIRUBIN,TOTAL 0.2 MG/DL (0.1-1.0); CALCIUM 9.4 MG/DL (8.5-10.1); CREATININE SERUM 1.38 MG/DL (0.60-1.30); POTASSIUM 4.3 MMOL/L (3.6-5.0); TOTAL PROTEIN 6.8 GM/DL (6.4-8.2)
[2018-09-17] MEDS ORDERED: morphine INJ 10 MG/ML 1ML (SYR OR VIAL) IVP STA (23:13)
[2018-09-17 23:46] VITALS: BP 167/104
--- NOTE | 2018-09-17 23:49 | Diagnostic Imaging Report ---
INDICATION: Cough and congestion. PA and lateral chest obtained at 1013 hrs. p.m. and compared to 10/19/2017. FINDINGS: Heart and mediastinal silhouette are normal in appearance. There is no consolidation or pneumothorax or pleural fluid. There is a small nodular density in the left lung base as well as small nodular densities overlying the right lung base, see dictation of recent CT from 09/15/2018. There is no pneumothorax or pleural fluid collection. IMPRESSION: Nodular densities overlying both lung bases are present, see dictation of CT chest from 09/15/2018. There is no consolidation or pleural fluid. Dictated by: Dictated on workstation # [id number]
[2018-09-17] MEDS ORDERED: LACTATED RINGERS 1,000 ML IV ONE (23:54)
[2018-09-18] MEDS ORDERED: PIPERACILLIN/TAZOBACTAM (BULK) 4.5 GM in NS (IVPB) 100 ML IV ONE ×2
[2018-09-18] MEDS ORDERED: HYDROmorphone 2 MG/ML VIAL (DILAUDID) IV ONE
[2018-09-18] MEDS ORDERED: NS (IVPB) 100 ML ONE ×2 (00:01→06:36)
[2018-09-18] MEDS ORDERED: PIPERACILLIN/TAZO 4.5 GM VIAL (ZOSYN) IV ONE ×2 (00:02→06:36)
--- NOTE | 2018-09-18 00:07 | ED Abdominal Pain ---
General Chief Complaint: Abdominal/GI Problems Stated Complaint: POST OP/ABD PAIN Nursing Triage Note: pt had gb out recently. pt having left lower quad pain. pt has recent diagnosed kidney cancer that he has an oncology appointment for on august 25. pt denies n/v/d/fever. pt states hesitency voiding urine. Sepsis Screen: No Definite Risk Source of Information: Patient, Old Records Exam Limitations: No Limitations History of Present Illness Date Seen by Provider: Sep 17, 2018 Time Seen by Provider: 21:30 Initial Comments This patient presents to the emergency room with primary complaint of left lower quadrant pain. He has recently been worked up for probable left renal cell carcinoma with metastases. He has a pending appointment at [facility] with Dr. Romero on September 24. He has had some vomiting as well as some diarrhea because he has been using MiraLAX. He is afebrile at this time. He is notably tachycardic on arrival. Allergies and Home Medications Allergies Coded Allergies: No Known Drug Allergies (Unverified , 06/27/18) Home Medications Allopurinol 300 Mg Tablet, 300 MG PO BID, (Reported) Aspirin 81 Mg Tablet.dr, 81 MG PO DAILY, (Reported) Cephalexin 250 Mg Capsule, 250 MG PO BID Prescribed by: RUTH DIOP on 09/03/18 0252 Cetirizine HCl 10 Mg Tablet, 10 MG PO DAILY, (Reported) Cyclobenzaprine HCl 10 Mg Tablet, 10 MG PO PRN PRN for SPASMS, (Reported) Enalapril Maleate 20 Mg Tablet, 40 MG PO DAILY, (Reported) Famotidine 20 Mg Tablet, 10 MG PO DAILY PRN for INDIGESTION, (Reported) Hydrocodone Bit/Acetaminophen 1 Ea Tablet, 1 EACH PO Q4H PRN for PAIN-MODERATE Prescribed by: KETURAH CONNER on 08/09/18 1303 Indomethacin 50 Mg Capsule, 50 MG PO PRN, (Reported) Metformin HCl 500 Mg Tab.er.24h, 1 TAB PO BID, (Reported) Metoprolol Succinate 25 Mg Tab.er.24h, 25 MG PO DAILY Prescribed by: PAUL GARG on 10/20/17 1314 Oxycodone HCl/Acetaminophen 1 Each Tablet, 1 EACH PO Q4H PRN for PAIN-SEVERE Prescribed by: LEESA NORMAN on 09/15/18 0917 Pantoprazole Sodium 40 Mg Tablet., 40 MG PO DAILY Prescribed by: KETURAH CONNER on 06/29/18 1339 Simvastatin 20 Mg Tablet, 20 MG PO HS, (Reported) Sulfamethoxazole/Trimethoprim 1 Each Tablet, 1 EACH PO BID Prescribed by: LEESA NORMAN on 09/15/18 0914 Patient Home Medication List Home Medication List Reviewed: Yes Review of Systems Review of Systems Constitutional: no symptoms reported EENTM: No Symptoms Reported Respiratory: No Symptoms Reported Cardiovascular: See HPI Gastrointestinal: See HPI Genitourinary: See HPI Musculoskeletal: no symptoms reported Skin: no symptoms reported Psychiatric/Neurological: No Symptoms Reported Endocrine: No Symptoms Reported Hematologic/Lymphatic: No Symptoms Reported Past Gwdsbnr-Gbsxyu-Ygokcp Hx Past Med/Social Hx: Reviewed and Corrections made Patient Social History Alcohol Use: Denies Use Recreational Drug Use: No Type Used: Cigarettes Former Smoker, Quit: Jun 27, 1982 2nd Hand Smoke Exposure: No Recent Foreign Travel: No Contact w/Someone Who Travel: No Recent Infectious Disease Expo: No Recent Hopitalizations: No Physical Abuse: No Sexual Abuse: No Mistreated: No Immunizations Up To Date Tetanus Booster (TDap): Unknown PED Vaccines UTD: No Date of Influenza Vaccine: Dec 18, 2017 Seasonal Allergies Seasonal Allergies: Yes Past Medical History Surgeries: Yes Appendectomy, Cardiac, Orthopedic Respiratory: No Cardiac: Yes (CATH 10/2017--MODERATE CAD, NO INTERVENTION; RBBB) Coronary Artery Disease, High Cholesterol, Hypertension Neurological: No Sexually Transmitted Disease: No HIV/AIDS: No Genitourinary: Yes (LEFT RENAL MASS DX 09/02/18) Gastrointestinal: Yes Gastroesophageal Reflux, Chronic Constipation, Diverticulosis Musculoskeletal: Yes (LEFT FEMUR AND PATELLA FRACTURES REPAIRED; HAND FRACTURES--NO SURGERY) Fractures, Gout Endocrine: Yes Diabetes, Non-Insulin dep HEENT: Yes (GLASSES, DENTURES) Loss of Vision: Bilateral Hearing Impairment: Denies Cancer: Yes Kidney (metastatic renal cell carcinoma) Psychosocial: No Integumentary: No Blood Disorders: No Adverse Reaction/Blood Tranf: No (HAS HAD BLOOD WITH NO REACTION) Family Medical History Heart Disease, CAD Under 55 Years Old Physical Exam Vital Signs Vital Signs - First Documented Capillary Refill : Less Than 3 Seconds Height/Weight/BMI Height: 5'8.00" Weight: 215lbs. 3.0oz. 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, no motor/sensory deficits, alert, normal mood/affect, oriented x 3 Skin: normal color, warm/dry Focused Exam Lactate Level 09/17/18 22:30: Lactic Acid Level 2.44*H Lactic Acid Level Laboratory Tests Test 09/17/18 22:30 Lactic Acid Level 2.44 MMOL/L (0.50-2.00) *H Progress/Results/Core Measures Results/Orders Lab Results Laboratory Tests Test 09/17/18 21:35 09/17/18 22:30 Range/Units Urine Color YELLOW Urine Clarity SLIGHTLY CLOUDY Urine pH 8 5-9 Urine Specific [place] 1.010 L 1.016-1.022 Urine Protein 2+ H NEGATIVE Urine Glucose (UA) NEGATIVE NEGATIVE Urine Ketones NEGATIVE NEGATIVE Urine Nitrite NEGATIVE NEGATIVE Urine Bilirubin NEGATIVE NEGATIVE Urine Urobilinogen 4 H NORMAL MG/DL Urine Leukocyte Esterase 1+ H NEGATIVE Urine RBC (Auto) 1+ H NEGATIVE Urine RBC 0-2 /HPF Urine WBC 0-2 /HPF Urine Squamous Epithelial Cells 2-5 /HPF Urine Crystals PRESENT H /LPF Urine Amorphous Sediment MOD RASHMI PHOSPHATE H /LPF Urine Bacteria FEW H /HPF Urine Casts NONE /LPF Urine Mucus NEGATIVE /LPF Urine Culture Indicated CULTURE PENDING White Blood Count 13.9 H 4.3-11.0 10^3/uL Red Blood Count 4.28 L 4.35-5.85 10^6/uL Hemoglobin 11.4 L 13.3-17.7 G/DL Hematocrit 36 L 40-54 % Mean Corpuscular Volume 85 80-99 FL Mean Corpuscular Hemoglobin 27 25-34 PG Mean Corpuscular Hemoglobin Concent 31 L 32-36 G/DL Red Cell Distribution Width 14.9 H 10.0-14.5 % Platelet Count 538 H 130-400 10^3/uL Mean Platelet Volume 8.3 7.4-10.4 FL Neutrophils (%) (Auto) 78 H 42-75 % Lymphocytes (%) (Auto) 10 L 12-44 % Monocytes (%) (Auto) 8 0-12 % Eosinophils (%) (Auto) 4 0-10 % Basophils (%) (Auto) 0 0-10 % Neutrophils # (Auto) 10.9 H 1.8-7.8 X 10^3 Lymphocytes # (Auto) 1.4 1.0-4.0 X 10^3 Monocytes # (Auto) 1.1 H 0.0-1.0 X 10^3 Eosinophils # (Auto) 0.5 H 0.0-0.3 10^3/uL Basophils # (Auto) 0.1 0.0-0.1 10^3/uL Prothrombin Time 13.9 12.2-14.7 SEC INR Comment 1.0 0.8-1.4 Activated Partial Thromboplast Time 36 H 24-35 SEC Sodium Level 137 135-145 MMOL/L Potassium Level 4.3 3.6-5.0 MMOL/L Chloride Level 100 98-107 MMOL/L Carbon Dioxide Level 24 21-32 MMOL/L Anion Gap 13 5-14 MMOL/L Blood Urea Nitrogen 15 7-18 MG/DL Creatinine 1.38 H 0.60-1.30 MG/DL Estimat Glomerular Filtration Rate 52 BUN/Creatinine Ratio 11 Glucose Level 135 H 70-105 MG/DL Lactic Acid Level 2.44 *H 0.50-2.00 MMOL/L Calcium Level 9.4 8.5-10.1 MG/DL Corrected Calcium 9.9 8.5-10.1 MG/DL Total Bilirubin 0.2 0.1-1.0 MG/DL Aspartate Amino Transf (AST/SGOT) 12 5-34 U/L Alanine Aminotransferase (ALT/SGPT) 18 0-55 U/L Alkaline Phosphatase 258 H 40-136 U/L C-Reactive Protein High Sensitivity 12.91 H 0.00-0.50 MG/DL Total Protein 6.8 6.4-8.2 GM/DL Albumin 3.4 3.2-4.5 GM/DL My Orders Orders - MEGAN ANDERSON MD Cbc With Automated Diff (09/17/18 21:31) Comprehensive Metabolic Panel (09/17/18 21:31) Blood Culture (09/17/18 21:31) Sputum Culture (09/17/18 21:31) Urinalysis (09/17/18 21:31) Urine Culture (09/17/18 21:31) Protime With Inr (09/17/18 21:31) Partial Thromboplastin Time (09/17/18 21:31) Ed Iv/Invasive Line Start (09/17/18 21:31) Ed Iv/Invasive Line Start (09/17/18 21:31) Vital Signs Adult Sepsis Patie Q15M (09/17/18 21:31) O2 (09/17/18 21:31) Remove Rings In Anticipation O (09/17/18 21:31) Lactic Acid Analyzer (09/17/18 21:31) Chest Pa/Lat (2 View) (09/17/18 21:31) Bladder Scan (09/17/18 21:31) Ns Iv 1000 Ml (Sodium Chloride 0.9%) (09/17/18 21:31) Hs C Reactive Protein (09/17/18 21:31) Fentanyl Injection (Sublimaze Injection (09/17/18 22:43) Morphine Injection (Morphine Injection (09/17/18 23:13) Piperacillin/Tazobactam (Bulk) (Zosyn In (09/18/18 00:00) Hydromorphone Injection (Dilaudid Inject (09/18/18 00:00) Lactated Ringers (Lr 1000 Ml Iv Solution (09/17/18 23:54) Medications Given in ED Current Medications Medications Dose Ordered Sig/Cristóbal Route Start Time Stop Time Status Last Admin Dose Admin Fentanyl Citrate 100 mcg STK-MED ONCE .ROUTE 09/17/18 22:43 09/17/18 22:49 DC 09/17/18 22:59 50 MCG Lactated Ringer's 1,000 ml @ 0 mls/hr Q0M ONCE IV 09/17/18 23:54 09/17/18 23:56 DC 09/18/18 00:19 0 MLS/HR Sodium Chloride 1,000 ml @ 0 mls/hr Q0M ONCE IV 09/17/18 21:31 09/17/18 21:34 DC 09/17/18 21:52 0 MLS/HR Vital Signs/I&O 09/17/18 09/17/18 09/17/18 21:43 21:43 23:46 Temp 98.1 98.1 Pulse 123 109 Resp 20 19 B/P (MAP) 138/95 (109) 167/104 (125) Pulse Ox 99 99 99 O2 Delivery Room Air Room Air Room Air 09/18/18 00:00 Intake Total 1000 ml Output Total 159 ml Balance 841 ml Blood Pressure Mean: 125 Progress Progress Note : Time: 00:06 Progress Note Patient was seen and examined. Chart was reviewed. Patient has had recent diagnosis of suspected metastatic renal cell carcinoma. He has a pending referr al to Dr. Romero at [facility] on September 24. Some of his findings are suspicious for sepsis including tachycardia, elevated CRP, and elevated WBC. However, no source of infection has been found. Blood cultures and urine culture from September 15 were negative. Patient has been on oral antibiotics as well. As a precaution, patient will be treated with Zosyn with his first dose being administered in the emergency room. A repeat CT with contrast was considered for the emergency room workup. However, he has extremely poor vascular access and only has an IV line in the right hand. Vascular access is so poor that a second blood culture cannot even be obtained. We will use his peripheral IV for antibiotic administration and hydration at this time. I spoke with Dr. Gamboa about possibly placing a port. If patient is found to not be septic, port placement may occur soon. Otherwise, patient may be assessed for a midline or PICC line for more acute treatment. It would be nice to have a definitive access established before patient goes to [facility] next week. Patient's pain was treated first with fentanyl, then morphine, then Dilaudid in the emergency room. I have avoided NSAID therapy such as Toradol due to renal disease. Departure Communication (Admissions) Time/Spoke to Admitting Phy: 23:40 Dr. Madison Time/Spoke to Consulting Phy: 23:35 Dr. Gamboa Impression Primary Impression: Left lower quadrant pain Additional Impressions: Renal cell carcinoma Qualified Codes: C64.2 - Malignant neoplasm of left kidney, except renal pelvis Leukocytosis Qualified Codes: D72.829 - Elevated white blood cell count, unspecified Tachycardia Disposition: ADMITTED INPATIENT Condition: Improved Admissions Decision to Admit Reason: Admit from ER (General) Decision to Admit/Date: Sep 18, 2018 Time/Decision to Admit Time: 23:30 Departure-Patient Inst. Referrals: JOELLE GODWIN MD (PCP) Primary Care Physician NATACHA LEONARD (Family) Primary Care Physician MEGAN ANDERSON MD Sep 18, 2018 00:07
--- OUTSIDE RECORDS SUMMARY | 2018-09-18 00:37 | XMS REPORT | Continuity of Care Document ---
Author Organization Unknown Address Unknown Allergies Active Description Code Type Severity Reaction Onset Reported/Identified Relationship to Patient Clinical Status Yes NO KNOWN DRUG ALLERGIES UNKNOWN NO KNOWN DRUG ALLERG Yes NO KNOWN DRUG ALLERGIES UNKNOWN UNKNOWN Yes No Known Drug Allergies [id number] Drug Allergy Unknown N/A 06/27/2018 Medications There [...] 10/20/2017 Ot I25.110 ATHSCL HEART DISEASE OF [place] COR ART W 10/20/2017 Ot Z79.84 [employer] (CURRENT) USE OF ORAL HYPOGLYC 10/20/2017 Ot Z79.899 OTHER [employer] (CURRENT) DRUG THERAPY 10/20/2017 Ot Z87.891 PERSONAL HISTORY OF NICOTINE DEPENDENCE 10/28/2017 Ot E11.9 TYPE 2 DIABETES MELLITUS WITHOUT COMPLIC 10/28/2017 Ot E78.5 HYPERLIPIDEMIA, UNSPECIFIED 10/28/2017 Ot I10 ESSENTIAL (PRIMARY) HYPERTENSION 10/28/2017 Ot I25.10 ATHSCL HEART DISEASE OF [place] CORONARY 10/28/2017 Ot Z79.84 PENITENTIARY (CURRENT) USE OF ORAL HYPOGLYC 10/28/2017 Ot [...] 11/03/2017 Ot I25.110 ATHSCL HEART DISEASE OF [place] COR ART W 11/03/2017 Ot Z79.84 PENITENTIARY (CURRENT) USE OF ORAL HYPOGLYC 11/03/2017 Ot Z79.899 OTHER [employer] (CURRENT) DRUG THERAPY 11/03/2017 Ot Z87.891 PERSONAL [...] NE 06/29/2018 KETURAH CONNER MD Ot Z79.84 [employer] (CURRENT) USE OF ORAL HYPOGLYC 06/29/2018 KETURAH CONNER MD, Ot Z79.899 OTHER PENITENTIARY (CURRENT) DRUG THERAPY 07/03/2018 KETURAH CONNER MD, [...] NE 07/03/2018 KETURAH CONNER MD, Ot Z79.84 [employer] (CURRENT) USE OF ORAL HYPOGLYC 07/03/2018 KETURAH CONNER MD, Ot Z79.899 OTHER [employer] (CURRENT) DRUG THERAPY 07/06/2018 KETURAH CONNER MD, [...] NE 07/06/2018 KETURAH CONNER MD, Ot Z79.84 PENITENTIARY (CURRENT) USE OF ORAL HYPOGLYC 07/06/2018 KETURAH CONNER MD, Ot Z79.899 OTHER PENITENTIARY (CURRENT) DRUG THERAPY 07/17/2018 KETURAH CONNER MD, [...] UNSPECIFIED 2018 KETURAH CONNER MD Ot Z79.84 [employer] (CURRENT) USE OF ORAL HYPOGLYC 2018 KETURAH CONNER MD Ot Z79.899 OTHER [employer] (CURRENT) DRUG THERAPY 08/15/2018 KETURAH CONNER MD, [...] UNSPECIFIED 08/15/2018 KETURAH CONNER MD Ot Z79.84 [employer] (CURRENT) USE OF ORAL HYPOGLYC 08/15/2018 KETURAH CONNER MD Ot Z79.899 OTHER PENITENTIARY (CURRENT) DRUG THERAPY 08/16/2018 KETURAH CONNER MD [...] SPECIF 09/03/2018 RUTH DIOP MD, Ot Z79.82 PENITENTIARY (CURRENT) USE OF ASPIRIN 09/03/2018 RUTH DIOP MD, Ot Z79.84 PENITENTIARY (CURRENT) USE OF ORAL HYPOGLYC 09/03/2018 RUTH [...] SPECIF 09/04/2018 RUTH DIOP MD Ot Z79.82 PENITENTIARY (CURRENT) USE OF ASPIRIN 09/04/2018 RUTH DIOP MD, Ot Z79.84 [employer] (CURRENT) USE OF ORAL HYPOGLYC 09/04/2018 RUTH [...] 09/15/18 07:45 Blood monocytes/100 leukocytes 8 % NR Manual blood segmented neutrophils/100 leukocytes 74 % NR Manual blood lymphocytes/100 leukocytes 15 % NR Manual eosinophils/100 leukocytes in nose 3 % [facility] Blood erythrocyte morphology finding identification NORMAL NR Bacterial blood culture - 09/15/18 07:45 Bacterial blood culture NG NR Complete urinalysis with reflex to culture - 09/17/18 21:35 Urine color determination YELLOW NRG Urine clarity determination SLIGHTLY CLOUDY NR Urine pH measurement by test strip 8 5-9 Specific gravity of urine by test strip 1.010 1.016-1.022 Urine protein assay by test strip, semi-quantitative 2+ NEGATIVE Urine glucose detection by automated test strip NEGATIVE NEGATIVE Erythrocytes detection in urine sediment by light microscopy 1+ NEGATIVE Urine ketones detection by automated test [...] NRG Complete urinalysis with reflex to culture CULTURE PENDING NRG Amorphous sediment detection in urine sediment by light microscopy MOD RASHMI PHOSPHATE NRG Complete blood count (CBC) with automated white blood cell (WBC) differential - 09/17/18 22:30 Blood leukocytes automated count (number/volume) 13.9 10*3/uL 4.3-11.0 Blood erythrocytes automated count (number/volume) 4.28 10*6/uL 4.35-5.85 Venous blood hemoglobin measurement (mass/volume) 11.4 g/dL 13.3-17.7 Blood hematocrit (volume fraction) 36 % 40-54 Automated erythrocyte mean corpuscular volume 85 [foz_us] 80-99 Automated erythrocyte mean corpuscular hemoglobin (mass per erythrocyte) 27 pg 25-34 Automated erythrocyte mean corpuscular hemoglobin concentration measurement (mass/volume) 31 g/dL 32-36 Automated erythrocyte distribution width ratio 14.9 % 10.0- 14.5 Automated blood platelet count (count/volume) 538 10*3/uL 130-400 Automated blood platelet mean volume measurement 8.3 [foz_us] 7.4-10.4 Automated blood neutrophils/100 leukocytes 78 % 42-75 Automated blood lymphocytes/100 leukocytes 10 % 12-44 Blood monocytes/100 leukocytes 8 % 0-12 Automated blood eosinophils/100 leukocytes 4 % 0-10 Automated blood basophils/100 leukocytes 0 % 0-10 Blood neutrophils automated count (number/volume) 10.9 10*3 1.8-7.8 Blood lymphocytes automated count (number/volume) 1.4 10*3 1.0-4.0 Blood monocytes automated count (number/volume) 1.1 10*3 0.0- 1.0 Automated eosinophil count 0.5 10*3/uL 0.0-0.3 Automated blood basophil count (count/volume) 0.1 10*3/uL 0.0-0.1 PT panel in platelet poor plasma by coagulation assay - 09/17/18 22:30 Prothrombin time (PT) in platelet poor plasma by coagulation assay 13.9 s 12.2-14.7 INR in platelet poor plasma or blood by coagulation assay 1.0 0.8-1.4 Activated partial thromboplastin time (aPTT) in platelet poor plasma bycoagulation assay - 09/17/18 22:30 Activated partial thromboplastin time (aPTT) in platelet poor plasma bycoagulation assay 36 s 24-35 Blood lactic acid measurement (moles/volume) - 09/17/18 22:30 Blood lactic acid measurement (moles/volume) 2.44 mmol/L 0.50- 2.00 Comprehensive metabolic panel - 09/17/18 22:30 Serum or plasma sodium measurement (moles/volume) 137 mmol/L 135-145 Serum or plasma potassium measurement (moles/volume) 4.3 mmol/L 3.6-5.0 Serum or plasma chloride measurement (moles/volume) 100 mmol/L 98-107 Carbon dioxide 24 mmol/L 21-32 Serum or plasma anion gap determination (moles/volume) 13 mmol/L 5-14 Serum or plasma urea nitrogen measurement (mass/volume) 15 mg/dL 7-18 Serum or plasma creatinine measurement (mass/volume) 1.38 mg/dL 0.60-1.30 Serum or plasma urea nitrogen/creatinine mass ratio 11 NRG Serum or plasma creatinine measurement with calculation of estimated glomerular filtration rate 52 NRG Serum or plasma glucose measurement (mass/volume) 135 mg/dL 70-105 Serum or plasma calcium measurement (mass/volume) 9.4 mg/dL 8.5-10.1 Serum or plasma total bilirubin measurement (mass/volume) 0.2 mg/dL 0.1-1.0 Serum or plasma alkaline phosphatase measurement (enzymatic activity/volume) 258 U/L 40-136 Serum or plasma aspartate aminotransferase measurement (enzymatic activity/volume) 12 U/L 5-34 Serum or plasma alanine aminotransferase measurement (enzymatic activity/volume) 18 U/L 0-55 Serum or plasma protein measurement (mass/volume) 6.8 g/dL 6.4-8.2 Serum or plasma albumin measurement (mass/volume) 3.4 g/dL 3.2-4.5 CALCIUM CORRECTED 9.9 mg/dL 8.5-10.1 Serum or plasma C reactive protein measurement (mass/volume) - 09/17/18 22:30 Serum or plasma C reactive protein measurement (mass/volume) 12.91 mg/dL 0.00-0.50 Encounters ACCT No. Visit Date/Time Discharge Status Pt. Type Provider Facility Loc./Unit Complaint [id number] 08/31/2018 17:37:00 08/31/2018 23:59:00 DIS Outpatient Kimberly Kajal [id number] 08/28/2018 10:35:00 08/28/2018 23:59:00 DIS Outpatient Kimberly Kajal [id number] 02/20/2018 13:04:00 02/20/2018 23:59:00 DIS Outpatient Kajal Harris [id number] 11/03/2017 10:58:00 11/03/2017 23:59:00 DIS Outpatient Kimberly, Kajal [id number] 05/23/2017 11:51:00 05/23/2017 23:59:00 DIS Outpatient Kimberly, Kajal [id number] 02/20/2017 11:21:00 02/20/2017 23:59:00 DIS Outpatient Kimberly, Kajal [id number] 11/10/2016 10:36:00 11/10/2016 23:59:00 DIS Outpatient Kimberly, Kajal [id number] 04/08/2016 15:17:00 04/08/2016 23:59:00 DIS Outpatient Kimberly, Kajal [id number] 02/01/2016 08:50:00 02/01/2016 23:59:00 DIS Outpatient Peter Correa [id number] 01/29/2016 08:19:00 01/29/2016 23:59:00 DIS Outpatient Kimberly, Kajla [id number] 02/20/2017 10:45:00 Document Registration [id number] 09/15/2018 06:44:00 09/15/2018 09:53:00 DIS Emergency LEESA NORMAN DO [facility] ER KIDNEY PAIN,TESTICAL PAIN [id number] 09/04/2018 09:15:00 09/04/2018 23:59:59 CLS Preadmit KETURAH CONNER MD [facility] RAD ABD PAIN [id number] 09/02/2018 23:17:00 09/03/2018 03:01:00 DIS Emergency RUTH DIOP MD [facility] ER SEVERE LOWER BACK PAIN [id number] 2018 11:47:00 2018 19:20:00 DIS Outpatient KETURAH CONNER MD [facility] SDC BILIARY DYSKINESIA [id number] 07/30/2018 11:44:00 07/30/2018 23:59:59 CLS Outpatient KETURAH CONNER MD [facility] CARD RUQ PAIN,BLOATING [id number] 07/16/2018 07:20:00 07/16/2018 23:59:59 CLS Outpatient KETURAH CONNER MD [facility] RAD RUQ PAIN,BLOATING [id number] 06/29/2018 12:44:00 06/29/2018 16:05:00 DIS Outpatient KETURAH CONNER MD [facility] ENDO SCREENING/REFLUX [id number] 06/27/2018 05:53:00 06/27/2018 10:10:00 DIS Outpatient KETURAH CONNER MD [facility] PREOP COLONOSCOPY/EGD [id number] 09/17/2018 21:51:00 Document Registration [id number] 10/19/2017 14:30:00 Document Registration [id number] 10/19/2017 12:24:00 Document Registration
[2018-09-18] MEDS ORDERED: LACTATED RINGERS 1,000 ML IV SCH (01:45)
[2018-09-18] MEDS ORDERED: oxyCODONE/APAP 10/325MG (PERCOCET 10) TABLET PO ONE (02:38)
[2018-09-18] MEDS: oxyCODONE/APAP 10/325MG (PERCOCET 10) TABLET PO PRN ×3 (02:46→11:58)
[2018-09-18 03:13] VITALS: BP 149/95
[2018-09-18] MEDS: HYDROmorphone 2 MG/ML VIAL (DILAUDID) IV PRN ×5 (04:02→18:58)
[2018-09-18 04:20] VITALS: BP 144/99
[2018-09-18 05:42] LABS: BASOPHILS % (AUTO) 0 % (0-10); EOSINOPHILS # (AUTO) 0.5 10^3/uL (0.0-0.3); EOSINOPHILS % (AUTO) 3 % (0-10); HEMATOCRIT 35 % (40-54); HEMOGLOBIN 10.8 G/DL (13.3-17.7); LYMPHOCYTES # (AUTO) 1.2 X 10^3 (1.0-4.0); LYMPHOCYTES % (AUTO) 9 % (12-44); MEAN CORPUSCULAR HEMOGLOBIN 27 PG (25-34); MEAN CORPUSCULAR HGB CONC 31 G/DL (32-36); MEAN CORPUSCULAR VOLUME 85 FL (80-99); MEAN PLATELET VOLUME 8.2 FL (7.4-10.4); MONOCYTES # (AUTO) 1.3 X 10^3 (0.0-1.0); MONOCYTES % (AUTO) 10 % (0-12); NEUTROPHILS # (AUTO) 10.9 X 10^3 (1.8-7.8); NEUTROPHILS % (AUTO) 78 % (42-75); PLATELET COUNT 500 10^3/uL (130-400); RED CELL DISTRIBUTION WIDTH 14.8 % (10.0-14.5); WHITE BLOOD COUNT 13.9 10^3/uL (4.3-11.0)
[2018-09-18 05:57] LABS: ALBUMIN 3.2 GM/DL (3.2-4.5); BILIRUBIN,TOTAL 0.3 MG/DL (0.1-1.0); CALCIUM 9.1 MG/DL (8.5-10.1); CREATININE SERUM 1.3 MG/DL (0.60-1.30); POTASSIUM 4.3 MMOL/L (3.6-5.0); TOTAL PROTEIN 6.3 GM/DL (6.4-8.2)
[2018-09-18] MEDS: PIPERACILLIN/TAZO 4.5 GM/NS 100 ML IV SCH ×6 (06:00→21:10)
[2018-09-18] MEDS: NS IV 1000 ML 1,000 ML IV SCH ×4 (06:43→21:10)
[2018-09-18 08:00] VITALS: BP 170/104
[2018-09-18] MEDS ORDERED: ALPR0.254 PO (09:02)
[2018-09-18] MEDS ORDERED: HYDR-3816 PO (09:02)
[2018-09-18] MEDS ORDERED: METO-387 PO (09:02)
[2018-09-18] MEDS ORDERED: SULF1TAB35 PO (09:18)
[2018-09-18] MEDS ORDERED: CHLO4TAB36 PO (09:18)
[2018-09-18] MEDS ORDERED: METO10TA3 PO (09:18)
--- NOTE | 2018-09-18 09:55 | NUR ---
SPOKE WITH THE PATIENT ABOUT HIS MEDICATIONS. HE HAD HIS BOTTLES WELL A LIST ON HIS PHONE. THE LIST ON HIS PHONE STILL HAS ASPIRIN AND PROTONIX WHICH HE STATES HE IS NO LONGER TAKING EITHER OF. HE ALSO HAS A PROBIOTIC AND A GAS AND BLOAT RELIEF THAT ARE OTC IN HIS BAG HOWEVER HE STATES HE NO LONGER USES EITHER OF THOSE EITHER. I VERIFIED WITH THE EXT MED HX AND VERBALLY WITH THE PATIENT HOW HE TAKES EACH MEDICATION. HIS ALLOPURINOL 300MG WAS FILLED 07-29-18 #102 FOR A 34 DAY SUPPLY HOWEVER HE STATES HE ONLY TAKES IT BID. HE FILLED BACTRIM #20 BID 09-15-18 AND HAS THE BOTTLE WITH HIM, HE WAS TAKING IT PRIOR TO ADMISSION BUT HAS NOT FINISHED IT. HE STATES HE WAS ALSO PRESCRIBED PERCOCET AND STATES HE DID FILL IT HOWEVER HE DOES NOT HAVE THAT BOTTLE WITH HIM, HE THINKS IT IS GONE BUT WAS TAKING HYDROCODONE PRIOR TO THAT AND PREFERS THE HYDROCODONE. HE TAKES THE FOLLOWING OTC: PEPCID DAILY ZYRTEC DAILY CHLORPHENIRAMINE DAILY PRN WHEN ZYRTEC ISN'T ENOUGH HE STATES HE TAKES INDOMETHACIN AND FLEXERIL NEEDED, I VERIFIED WITH DILPEE THE LAST FILL DATES. 11-30-17 FLEXERIL 10MG TID PRN INDOMETHACIN 50MG QID (TAKES PRN FOR GOUT FLARES)
[2018-09-18] MEDS: ONDANSETRON 4 MG/2 ML (SDV) Z0FRAN IV PRN (11:58)
[2018-09-18 12:00] VITALS: BP 159/96
[2018-09-18] MEDS: HYDROcodone/APAP 10 MG/325 MG (LORTAB) TAB PO PRN ×3 (12:52→22:48)
--- NOTE | 2018-09-18 13:36 | History & Physical-Hospitalist ---
History of Present Illness HPI/Chief Complaint The patient is a 63-year-old white male who presented to the emergency room last night with complaints of generalized abdominal and left lower quadrant pain. He has recently been discovered to have a kidney lesion on the left which is highly likely to be renal cell carcinoma. He has an appointment to see a doctor at [facility] on 09/24 to lay out a treatment plan. He denied fever or sweats. He stated that at times felt hot. His lab showed a creatinine of 1.38 the initial lactic acid was 1.89 and then climbed to 2.44. It is now fallen back to 2.27 with hydration. His venous access is quite poor and he will require a more dependable access. He was noted that his pulse returned from 100-116 and vaibhav nues to do so. Date Seen 09/18/18 Attending Physician Obed Dean MD PCP Peter Correa MD Referring Physician Date of Admission Sep 17, 2018 at 23:56 Home Medications & Allergies Home Medications Reviewed patient Home Medication Reconciliation performed by pharmacy medication reconciliations instrument repair technician and/or nursing. Patients Allergies have been reviewed. Allergies Allergies Coded Allergies No Known Drug Allergies (Unverified06/27/18) Past Mchmmxe-Tpmqzd-Convov Hx Past Med/Social Hx: Reviewed and Corrections made Patient Social History Alcohol Use: Denies Use Recreational Drug Use: No Former Smoker, Quit: Jun 27, 1982 Type Used: Cigarettes 2nd Hand Smoke Exposure: No Recent Foreign Travel: No Contact w/other who traveled: No Recent Hopitalizations: No Recent Infectious Disease Expo: No Immunizations Up To Date Tetanus Booster (TDap): Unknown Pediatric: No Date of Pneumonia Vaccine: Oct 12, 1987 Date of Influenza Vaccine: Dec 18, 2017 Seasonal Allergies Seasonal Allergies: Yes Past Medical History Surgeries: Appendectomy, Cardiac, Orthopedic Cardiac: Coronary Artery Disease, High Cholesterol, Hypertension Sexually Transmitted Disease: No HIV/AIDS: No Gastrointestinal: Gastroesophageal Reflux, Chronic Constipation, Diverticulosis Musculoskeletal: Fractures, Gout Endocrine: Diabetes, Non-Insulin dep Loss of Vision: Bilateral Hearing Impairment: Denies Cancer: Kidney (metastatic renal cell carcinoma) History of Blood Disorders: No Adverse Reaction to Blood Kang: No (HAS HAD BLOOD WITH NO REACTION) Family History Heart Disease, CAD Under 55 Years Old Review of Systems Constitutional: see HPI EENTM: no symptoms reported Respiratory: no symptoms reported Cardiovascular: no symptoms reported Gastrointestinal: LLQ, loss of appetite Genitourinary: see HPI Musculoskeletal: no symptoms reported Skin: no symptoms reported Psychiatric/Neurological: No Symptoms Reported Physical Exam Physical Exam Vital Signs Vital Signs - First Documented Capillary Refill : Less Than 3 Seconds Height, Weight, BMI Height: 5'9.00" Weight: 197lbs. 5.0oz. [id number]; 30.9 BMI Method:Stated General Appearance: No Apparent Distress, WD/WN Eyes: Bilateral Eye Normal Inspection HEENT: Normal ENT Inspection Neck: Normal Inspection Respiratory: Chest Non Tender, Lungs Clear, Normal Breath Sounds, No Accessory Muscle Use, No Respiratory Distress Cardiovascular: Regular Rate, Rhythm, No Edema, No Gallop, No JVD, No Murmur, Normal Peripheral Pulses, Tachycardia Gastrointestinal: Normal Bowel Sounds, No Organomegaly Back: Normal Inspection, No CVA Tenderness Extremity: Normal Capillary Refill, Normal Inspection, Normal Range of Motion, Non Tender, No Calf Tenderness, No Pedal Edema Neurologic/Psychiatric: Alert, Oriented x3, No Motor/Sensory Deficits, Normal Mood/Affect Skin: Normal Color, Warm/Dry Lymphatic: No Adenopathy Results Results/Procedures Labs Laboratory Tests 09/17/18 22:30 09/18/18 05:25 Patient resulted labs reviewed. Clinical Quality Measures DVT/VTE Risk/Contraindication: Risk Factor Score Per Nursin RFS Level Per Nursing on Admit: 4+=Very High OBED DEAN MD Sep 18, 2018 13:36
[2018-09-18] MEDS ORDERED: ALPRAZolam 0.25 MG (XANAX) TAB PO PRN (13:45)
[2018-09-18] MEDS ORDERED: CYCLOBENZAPRINE 10 MG (FLEXERIL) TAB PO PRN (13:45)
[2018-09-18] MEDS ORDERED: CHLORPHENIRAMINE (CHLOTRIMENTON) 4 MG TAB PO PRN (13:45)
[2018-09-18] MEDS ORDERED: fentaNYL PATCH 25 MCG (DURAGESIC) TD SCH (14:00)
--- NOTE | 2018-09-18 14:16 | CONSULTATION REPORT ---
DATE OF SERVICE: 09/18/2018 ATTENDING CLINICIAN: KARRIE Townsend. ADMITTING PHYSICIAN: Dr. Fontana. HISTORY OF PRESENT ILLNESS: The patient is a 63-year-old male known to us. He was referred over to us for bloating after eating meals as well as reflux. He was also in need of a screening colonoscopy. On 06/29/2018, he underwent an EGD and colonoscopy. Findings included a reflux esophagitis stage II, small hiatal hernia approximately 1.5 cm in size as well as a mild gastritis. Colonoscopy revealed chronic stage II external and internal hemorrhoids as well as some moderate sigmoid diverticulosis; however, no abnormalities. Biopsies were negative for H. pylori, negative for Hebert's esophagus. He continued to have bloating symptoms and underwent an ultrasound of the gallbladder, which did not show any stones; however, he did undergo a HIDA scan and did have reproduction of symptoms including nausea and abdominal pain more in the right upper abdominal quadrant and abdominal distention. On 08/09/2018, he underwent a laparoscopic cholecystectomy and found to have mild gallbladder wall thickening as well as multiple small gallstones. He has had recurrent pain issues as he states in the more of the lower abdominal quadrants and the left side with radiation towards the back. He first noticed this approximately in 12/2017; however, it was not severe. Over the past 2 months he states that this has become much more significant. He was seen in the Emergency Department a few times and underwent a CT scan on 09/03/2018, which did show a large mass of the left kidney encompassing the left adrenal gland as well as several pulmonary nodules. This appears consistent with metastatic renal cell cancer. Upon admission last night he states worsening pain in the left lower abdominal quadrant as well as the back. A urinary tract infection was also identified. Since being admitted, he has been able to urinate without any difficulty. He does not report any hematuria. His pain has also been under control and he has been able to tolerate a clear liquid diet. PAST MEDICAL HISTORY: 1. Hypertension. 2. Hypercholesterolemia. 3. Gout. 4. Diabetes. 5. Possible metastatic left renal cell carcinoma. PAST SURGICAL HISTORY: Left ACL reconstruction in 1981, ORIF left femur in 1987, ORIF of mandible in 1987 and removal of hardware, appendectomy in 1995, laparoscopic cholecystectomy 08/09/2018. ALLERGIES: No known drug allergies. MEDICATIONS: Allopurinol 300 mg t.i.d., cyclobenzaprine 10 mg q.8 hours p.r.n., enalapril 40 mg daily, Pepcid 20 mg p.r.n., metformin ER 500 mg b.i.d., metoprolol 25 mg daily, Zocor 20 mg daily. SOCIAL HISTORY: Previous smoked 1 pack per day for 16 years, quit in 1982. Social alcohol. FAMILY HISTORY: Father, myocardial infarction. Mother non-Hodgkin's lymphoma. Sister leukemia. VITAL SIGNS: Temperature 97.6, blood pressure 159/96, pulse 103, respirations 18, pulse ox 96% on room air. REVIEW OF SYSTEMS: GENERAL: Well-nourished male currently in no acute distress. He is not experiencing any shortness of breath or difficulty breathing. No cough or hemoptysis. Satiety with small amounts of food with weight loss in the past several months. No nausea, vomiting, no abdominal bloating. No diarrhea, constipation, no red blood per rectum, no dark tarry stools. No hematuria, no dysuria. PHYSICAL EXAMINATION: CHEST: Good breath sounds bilaterally. HEART: Regular, no murmurs. EXTREMITIES: No lower extremity edema, negative Homans sign. HEENT: No scleral icterus. NECK: No cervical lymphadenopathy. ABDOMEN: Soft. There is pain upon palpation of the left lower abdominal quadrant, which also radiates towards the back. No palpable masses. No hernias. SKIN: Warm, dry. LABORATORY DATA: WBC 13.9, hemoglobin 10.8, hematocrit 35, platelets 500, BUN 13, creatinine 1.30. Urinalysis 1+ positive for leukocyte esterase, protein and bacteria. ASSESSMENT AND PLAN: A 63-year-old male with symptomatic left renal mass with multiple small nodules of the bilateral lungs most likely consistent with a metastatic renal cell carcinoma. He is already scheduled to see urologic specialist as well as an oncologist at [facility] on 09/24/2018. At this time, he is able to urinate and does have adequate pain control. We will continue with IV antibiotics to treat the urinary tract infection and proceed with a trial of hydrocodone 10/325 mg q.4 hours p.r.n. He states that after his gallbladder surgery the hydrocodone was more affective with pain control. Once his pain is under control and he is able to ambulate and he is urinating well he may be discharged home. Job ID: [id number] DocumentID: [id number] Dictated Date: 09/18/2018 13:19:34 Truck Hop Date: 09/18/2018 14:15:35 Dictated By: KETURAH CONNER MD MTDD
[2018-09-18] MEDS: FAMOTIDINE 20 MG (PEPCID) TABLET PO SCH (15:13)
[2018-09-18 16:10] VITALS: BP 148/92
[2018-09-18] MEDS: TRIM/SULFAMETH 160/800 (SEPTRA DS) TAB PO SCH (17:18)
[2018-09-18] MEDS: metFORMIN XR 500 MG (GLUCOPHAGE XR) TAB PO SCH (17:18)
[2018-09-18 20:17] VITALS: BP 151/85
[2018-09-18] MEDS ORDERED: NON-FORMULARY MEDICATION 1 EA EA (Enalapril Maleate 20 MG) PO SCH (21:00)
[2018-09-18] MEDS ORDERED: NON-FORMULARY MEDICATION 1 EA EA (Allopurinol 300 MG) PO SCH (21:00)
[2018-09-18] MEDS ORDERED: NON-FORMULARY MEDICATION 1 EA EA (Sulfamethoxazole/Trimethoprim (Bactrim Ds Tablet) 1 TAB) PO SCH (21:00)
[2018-09-18] MEDS: ENALAPRIL 10 MG (VASOTEC) TAB PO SCH (21:09)
[2018-09-18] MEDS: ALLOPURINOL 300 MG (ZYLOPRIM) TAB PO SCH (21:09)
[2018-09-18] MEDS: SIMvastatin 20 MG (ZOCOR) TAB PO SCH (21:09)
[2018-09-19 00:17] VITALS: BP 160/88
[2018-09-19] MEDS: HYDROmorphone 2 MG/ML VIAL (DILAUDID) IV PRN (01:47)
[2018-09-19] MEDS: NS IV 1000 ML 1,000 ML IV SCH ×3 (03:48→21:43)
[2018-09-19] MEDS: HYDROcodone/APAP 10 MG/325 MG (LORTAB) TAB PO PRN ×5 (04:04→20:32)
[2018-09-19 04:18] VITALS: BP 164/88
[2018-09-19] MEDS: ONDANSETRON 4 MG/2 ML (SDV) Z0FRAN IV PRN ×3 (05:40→16:00)
[2018-09-19 06:34] LABS: BASOPHILS % (AUTO) 0 % (0-10); EOSINOPHILS # (AUTO) 0.8 10^3/uL (0.0-0.3); EOSINOPHILS % (AUTO) 5 % (0-10); HEMATOCRIT 36 % (40-54); HEMOGLOBIN 11.2 G/DL (13.3-17.7); LYMPHOCYTES # (AUTO) 1.1 X 10^3 (1.0-4.0); LYMPHOCYTES % (AUTO) 7 % (12-44); MEAN CORPUSCULAR HEMOGLOBIN 27 PG (25-34); MEAN CORPUSCULAR HGB CONC 32 G/DL (32-36); MEAN CORPUSCULAR VOLUME 85 FL (80-99); MEAN PLATELET VOLUME 8.4 FL (7.4-10.4); MONOCYTES # (AUTO) 1.5 X 10^3 (0.0-1.0); MONOCYTES % (AUTO) 10 % (0-12); NEUTROPHILS # (AUTO) 12.2 X 10^3 (1.8-7.8); NEUTROPHILS % (AUTO) 78 % (42-75); PLATELET COUNT 549 10^3/uL (130-400); WHITE BLOOD COUNT 15.6 10^3/uL (4.3-11.0)
[2018-09-19] MEDS: PIPERACILLIN/TAZO 4.5 GM/NS 100 ML IV SCH ×6 (06:51→21:43)
[2018-09-19] MEDS: metFORMIN XR 500 MG (GLUCOPHAGE XR) TAB PO SCH ×2 (06:51→17:10)
[2018-09-19] MEDS: TRIM/SULFAMETH 160/800 (SEPTRA DS) TAB PO SCH ×2 (06:51→17:10)
[2018-09-19 07:18] LABS: EOSINOPHILS % (MANUAL) 2 %; LYMPHOCYTES % (MANUAL) 8 %; MONOCYTES % (MANUAL) 9 %; NEUTROPHILS % (MANUAL) 81 %
[2018-09-19 08:00] VITALS: BP 169/117
[2018-09-19] MEDS: FAMOTIDINE 20 MG (PEPCID) TABLET PO SCH (08:25)
[2018-09-19] MEDS: ENALAPRIL 10 MG (VASOTEC) TAB PO SCH ×2 (08:43→20:31)
[2018-09-19] MEDS: ALLOPURINOL 300 MG (ZYLOPRIM) TAB PO SCH ×2 (08:43→20:31)
[2018-09-19] MEDS ORDERED: NON-FORMULARY MEDICATION 1 EA EA (Famotidine (Pepcid) 20 MG) PO SCH (09:00)
[2018-09-19] MEDS ORDERED: FAMOTIDINE 20 MG (PEPCID) TABLET PO SCH (09:00)
--- NOTE | 2018-09-19 10:47 | Progress Note - Hospitalist ---
Subjective HPI/CC On Admission Date Seen by Provider: Sep 19, 2018 Time Seen by Provider: 10:00 The patient is a 63-year-old white male who presented to the emergency room last night with complaints of generalized abdominal and left lower quadrant pain. He has recently been discovered to have a kidney lesion on the left which is highly likely to be renal cell carcinoma. He has an appointment to see a doctor at [facility] on 09/24 to lay out a treatment plan. He denied fever or sweats. He stated that at times felt hot. His lab showed a creatinine of 1.38 the initial lactic acid was 1.89 and then climbed to 2.44. It is now fallen back to 2.27 with hydration. His venous access is quite poor and he will require a more dependable access. He was noted that his pulse returned from 100-116 and continues to do so. Subjective/Events-last exam Pt reports abdominal pain comes and goes White count is 15.[address] Enamorado consult [place] a little bit more Needs Miralax so I did order that Has an appointment on September 24 at Left renal mass appears to be Renal Cell Carcinoma with pulmonary metastasis Family at the bedside talking about when the port will be placed Review of Systems General: Fatigue Gastrointestinal: Abdominal Pain, Constipation Focused Exam Lactate Level 09/17/18 22:30: Lactic Acid Level 2.44*H 09/18/18 01:00: Lactic Acid Level 2.27*H Objective Exam Vital Signs Vital Signs Date Time Temp Pulse Resp B/P (MAP) Pulse Ox O2 Delivery O2 Flow Rate FiO2 09/19/18 16:00 97.7 99 20 171/108 (129) 97 Room Air Capillary Refill : Less Than 3 Seconds General Appearance: No Apparent Distress, WD/WN HEENT: Normal ENT Inspection Neck: Normal Inspection Respiratory: Chest Non Tender, Lungs Clear, Normal Breath Sounds, No Accessory Muscle Use, No Respiratory Distress Cardiovascular: No Edema, No Gallop, No JVD, No Murmur, Normal Peripheral Pulses, Tachycardia Gastrointestinal: Normal Bowel Sounds, No Organomegaly Back: Normal Inspection, No CVA Tenderness Extremity: Normal Capillary Refill, Normal Inspection, Normal Range of Motion, Non Tender, No Calf Tenderness, No Pedal Edema Neurologic/Psychiatric: Alert, Oriented x3, No Motor/Sensory Deficits, Normal Mood/Affect Skin: Normal Color, Warm/Dry Lymphatic: No Adenopathy Results/Procedures Lab Laboratory Tests 09/19/18 05:50 Patient resulted labs reviewed. Assessment/Plan Assessment and Plan Assess & Plan/Chief Complaint Assessment: Severe abdominal pain Renal mass w/mets? [facility] appt 09/24/18 Tachycardia on IVF and Tely consulting Cardiology Constipation GERD Leukocytosis Plan: Consult Cardiology for tachycardia IVF Pain meds Miralax Diagnosis/Problems Diagnosis/Problems (1) Left lower quadrant pain Status: Acute (2) Tachycardia Status: Acute (3) Leukocytosis Status: Acute Qualifiers: Leukocytosis type: unspecified Qualified Codes: D72.829 - Elevated white blood cell count, unspecified (4) Renal cell carcinoma Status: Acute Qualifiers: Laterality: left Qualified Codes: C64.2 - Malignant neoplasm of left kidney, except renal pelvis (5) Reflux esophagitis Status: Chronic (6) Non-insulin dependent type 2 diabetes mellitus Status: Chronic (7) Essential (primary) hypertension Status: Chronic (8) CAD (coronary artery disease) Status: Chronic Qualifiers: Coronary Disease-Associated Artery/Lesion type: makah artery (9) Metastasis from malignant neoplasm of kidney Status: Acute (10) Generalized abdominal pain Status: Acute Clinical Quality Measures DVT/VTE Risk/Contraindication: Risk Factor Score Per Nursin RFS Level Per Nursing on Admit: 4+=Very High JAZZY CAMPBELL DO Sep 19, 2018 10:47
[2018-09-19] MEDS ORDERED: POLYETHYLENE GLYCOL 17 GM (MIRALAX) PACK PO NR (11:00)
[2018-09-19 12:00] VITALS: BP 152/96
--- NOTE | 2018-09-19 13:57 | Diagnostic Imaging Report ---
INDICATION: Leukocytosis. EXAMINATION: PA and lateral chest. FINDINGS: There is a 14 mm nodule in the right lung base. There are small nodular opacities at the left lung base. There is a 9 mm nodular opacity in the right upper lobe. The heart size and pulmonary vascularity are normal. There are no infiltrates, effusions, or pneumothoraces. IMPRESSION: Bilateral pulmonary nodules, unchanged from a CT dated 09/15/2018. Dictated by: Dictated on workstation # [id number]
--- NOTE | 2018-09-19 14:54 | Progress Note ---
Subjective Date Seen by a Provider: Sep 19, 2018 Time Seen by a Provider: 14:00 Subjective/Events-last exam doing ok. no new complaints. slight elevation WBC. no fever/chills. still able to urinate well. no cough or sputum production. no calf tenderness. Focused Exam Lactate Level 09/17/18 22:30: Lactic Acid Level 2.44*H 09/18/18 01:00: Lactic Acid Level 2.27*H Objective Exam Vital Signs Date Time Temp Pulse Resp B/P (MAP) Pulse Ox O2 Delivery O2 Flow Rate FiO2 09/19/18 13:00 104 09/19/18 12:00 97.2 93 22 152/96 (114) 94 Room Air 09/19/18 08:00 Room Air 09/19/18 08:00 97.8 120 18 169/117 (134) 97 Room Air 09/19/18 07:00 117 09/19/18 04:18 97.7 72 18 164/88 (113) 95 Room Air 09/19/18 01:00 112 09/19/18 00:17 98.0 102 18 160/88 (112) 96 Room Air 09/18/18 20:17 97.4 93 18 151/85 (107) 97 Room Air 09/18/18 20:00 Room Air 09/18/18 19:00 93 09/18/18 16:10 97.0 85 18 148/92 (110) 96 Room Air I & O 09/19/18 07:00 Intake Total 5300 ml Balance 5300 ml Capillary Refill : Less Than 3 Seconds General Appearance: No Apparent Distress HEENT: PERRL/EOMI Neck: Full Range of Motion Respiratory: Chest Non Tender, Lungs Clear, Normal Breath Sounds Cardiovascular: Regular Rate, Rhythm Gastrointestinal: normal bowel sounds, soft, tenderness Extremity: Normal Capillary Refill Neurologic/Psychiatric: Alert, Oriented x3 Skin: Normal Color Lymphatic: No Adenopathy Results Lab Laboratory Tests 09/19/18 05:50: White Blood Count 15.6H, Red Blood Count 4.21L, Hemoglobin 11.2L, Hematocrit 36L , Mean Corpuscular Volume 85, Mean Corpuscular Hemoglobin 27, Mean Corpuscular Hemoglobin Concent 32, Red Cell Distribution Width 15.0H, Platelet Count 549H, Mean Platelet Volume 8.4, Neutrophils (%) (Auto) 78H, Lymphocytes (%) (Auto) 7L, Monocytes (%) (Auto) 10, Eosinophils (%) (Auto) 5, Basophils (%) (Auto) 0, Neutrophils # (Auto) 12.2H, Lymphocytes # (Auto) 1.1, Monocytes # (Auto) 1.5H, Eosinophils # (Auto) 0.8H, Basophils # (Auto) 0.0, Neutrophils % (Manual) 81, Lymphocytes % (Manual) 8, Monocytes % (Manual) 9, Eosinophils % (Manual) 2 Microbiology 09/18/18 Blood Culture - Preliminary, Resulted No growth 09/17/18 Urine Culture - Final, Complete NO GROWTH Assessment/Plan Assessment/Plan Assess & Plan/Chief Complaint LLQ and flank pain with large left renal mass and bilat pulm nodules. pain better controlled with fentanyl ptt, hydrocodone 10mg q 4hrs. leukocytosis, most likely UTI source however no growth to date, on zosyn. CXR unchanged. no signs atelectasis or pnuemonia. no calf tenderness. will await cultures, cont zosyn for now. if increase WBC then consider IVP and urology consultation. Clinical Quality Measures DVT/VTE Risk/Contraindication: Risk Factor Score Per Nursin RFS Level Per Nursing on Admit: 4+=Very High KETURAH CONNER MD Sep 19, 2018 14:54
[2018-09-19 16:00] VITALS: BP 171/108
[2018-09-19 20:00] VITALS: BP 176/98
[2018-09-19] MEDS: POLYETHYLENE GLYCOL 17 GM (MIRALAX) PACK PO SCH (20:31)
[2018-09-19] MEDS: SIMvastatin 20 MG (ZOCOR) TAB PO SCH (20:32)
--- NOTE | 2018-09-19 23:08 | Consultation-Cardiology ---
HPI-Cardiology Cardiology Consultation: Date of Consultation 09/19/18 Date of Admission Attending Physician Obed Madison MD Admitting Physician Peter Correa MD Consulting Physician Luis Miguel SCHAFFER MD HPI: Time Seen by a Provider: 17:00 Chief Complaint: Abdominal discomfort. This is a 63-year-old gentleman who presented with abdominal discomfort. He has probable left renal cell carcinoma with metastasis. He complains of vomiting and diarrhea. Significantly tachycardic on examination. Review of Systems-Cardiology Review of Systems Constitutional: As described under HPI; No As described under HPI, No no symptoms reported, No chills, No fever, No lightheadedness Eyes: No As described under HPI, No no symptoms reported, No blindness, No blurred vision, No contact lenses, No drainage, No decreased acuity, No foreign body sensation, No pain, No vision change Ears/Nose/Throat: No As described under HPI, No no symptoms reported, No chronic hearing loss, No ear discharge, No ear pain, No nasal drainage, No ulcerations Respiratory: No no symptoms reported; As described under HPI; No As described under HPI, No cough, No orthopnea, No shortness of breath, No SOB with excertion Cardiovascular: No no symptoms reported; As described under HPI; No As described under HPI, No chest pain, No edema, No irregular heart rate, No lightheadedness, No palpitations Gastrointestinal: No no symptoms reported, No As described under HPI, No abdomen distended; abdominal pain; No blood streaked bowels, No constipation, No diarrhea, No nausea, No vomiting; nausea/vomiting/diarrhea; No stool coloration changes Genitourinary: No As described under HPI, No burning, No dysuria, No discharge, No frequency, No flank pain, No hematuria, No urgency Skin: No rash, No skin related problems, No ulcerations Psychiatric/Neurological: No anxiety, No depression, No seizure, No focal weakness, No syncope Hematologic: No bleeding abnormalities ZHT-Lobzxx-Ysehyv Hx Patient Social History Alcohol Use: Denies Use Recreational Drug Use: No Type Used: Cigarettes 2nd Hand Smoke Exposure: No Recent Foreign Travel: No Recent Infectious Disease Expo: No Hospitalization with Isolation: Denies Immunizations Up To Date Tetanus Booster (TDap): Unknown Date of Pneumonia Vaccine: Oct 12, 1987 Date of Influenza Vaccine: Dec 18, 2017 Past Medical History PMH As described under Assessment. Allergies and Home Medications Allergies Coded Allergies: No Known Drug Allergies (Unverified , 06/27/18) Home Medications Allopurinol 300 Mg Tablet, 300 MG PO BID, (Reported) Alprazolam 0.25 Mg Tablet, 0.25 MG PO Q8H PRN for ANXIETY, (Reported) Cetirizine HCl 10 Mg Tablet, 10 MG PO DAILY, (Reported) Chlorpheniramine Maleate 4 Mg Tablet, 4 MG PO DAILY PRN for ALLERGY NOT RESOLVED BY ZYRTEC, (Reported) Cyclobenzaprine HCl 10 Mg Tablet, 10 MG PO Q8H PRN for SPASMS, (Reported) Enalapril Maleate 20 Mg Tablet, 20 MG PO BID, (Reported) Famotidine 20 Mg Tablet, 20 MG PO DAILY, (Reported) Hydrocodone/Acetaminophen 1 Each Tablet, 1 TAB PO Q8H PRN for PAIN-MODERATE, (Reported) Indomethacin 50 Mg Capsule, 50 MG PO QID PRN for GOUT PAIN, (Reported) Metformin HCl 500 Mg Tab.er.24h, 500 MG PO BID, (Reported) Metoclopramide HCl 10 Mg Tablet, 10 MG PO QID PRN for STOMACH UPSET, (Reported) Metoprolol Succinate 25 Mg Tab.er.24h, 25 MG PO DAILY, (Reported) Simvastatin 20 Mg Tablet, 20 MG PO HS, (Reported) Sulfamethoxazole/Trimethoprim 1 Each Tablet, 1 TAB PO BID, (Reported) 10 DAY SUPPLY FILLED 09-15-18 Patient Home Medication List Home Medication List Reviewed: Yes Physical Exam-Cardiology Physical Exam Vital Signs/I&O 09/20/18 09/20/18 09/20/18 09/20/18 12:00 13:00 16:01 19:00 Temp 97.0 97.8 Pulse 91 104 98 95 Resp 20 20 B/P (MAP) 167/99 (121) 172/99 (123) Pulse Ox 95 96 O2 Delivery Room Air Room Air 09/20/18 20:15 Temp 98.4 Pulse 89 Resp 18 B/P (MAP) 174/99 (124) Pulse Ox 97 O2 Delivery Room Air 09/20/18 00:00 Intake Total 1790 ml Balance 1790 ml Capillary Refill : Less Than 3 Seconds Constitutional: appears stated age, AAO x 3; No apparent distress; well- developed, well-nourished HEENT: PERRL; No discharge; hearing is well preserved, oral hygience is good; No ulceration, No xanthelasmas are seen Neck: No carotid bruit; carotid pulses are 2 + bilaterally Respiratory: No accessory muscle use, No respiratory distress, No chest tender, No chest expansion is symmetric; chest is bilaterally symmetric; No lungs clear to percussion; lungs clear to auscultation; No crackles, No rhonchi, No rales, No stridor, No wheezing, No pleural rub, No other Cardiovascular: regular rate-rhythm, tachycardia, S1 and S2 Gastrointestinal: No tender, No soft, No round, No distended, No pulsatile mass, No organomegaly, No guarding, No rebound, No tenderness, No hernia, No m ass, No audible bowel sounds, No abnormal bowel sounds, No abdominal bruits, No spleenomegaly, No other Rectal: deferred Extremities: No normal range of motion, No non-tender, No normal inspection, No pedal edema, No calf tenderness, No normal capillary refill, No pelvis stable, No calf tenderness, No inflammation, No pedal edema, No slow capillary refill, No swelling, No other, No abrasion, No clubbing, No cyanosis, No ecchymosis, No laceration, No no lower extremity edema bilateral, No significant edema, No tenderness, No wound Neurologic/Psychiatric: no motor/sensory deficits, alert, normal mood/affect, oriented x 3, power is 5/5 both on sides Skin: No normal color, No warm/dry, No cyanosis, No cool, No diaphoresis, No damp, No ecchymosis, No jaundice, No mottled, No pallor, No rash, No tattoos /piercings, No ulcerations, No rash on exposed areas, No ulcerations on exposed areas, No other Data Review Labs Laboratory Tests 09/20/18 06:20: White Blood Count 12.3H, Red Blood Count 4.04L, Hemoglobin 10.7L, Hematocrit 34L , Mean Corpuscular Volume 84, Mean Corpuscular Hemoglobin 27, Mean Corpuscular Hemoglobin Concent 31L, Red Cell Distribution Width 14.8H, Platelet Count 517H, Mean Platelet Volume 8.1, Neutrophils (%) (Auto) 76H, Lymphocytes (%) (Auto) 9L, Monocytes (%) (Auto) 10, Eosinophils (%) (Auto) 5, Basophils (%) (Auto) 0, Justino trophils # (Auto) 9.3H, Lymphocytes # (Auto) 1.1, Monocytes # (Auto) 1.2H, Eosinophils # (Auto) 0.6H, Basophils # (Auto) 0.1, Sodium Level 136, Potassium Level 4.1, Chloride Level 104, Carbon Dioxide Level 20L, Anion Gap 12, Blood Urea Nitrogen 10, Creatinine 1.08, Estimat Glomerular Filtration Rate > 60, BUN/ Creatinine Ratio 9, Glucose Level 122H, Calcium Level 9.2, Corrected Calcium 9.8, Total Bilirubin 0.2, Aspartate Amino Transf (AST/SGOT) 17, Alanine Aminotransferase (ALT/SGPT) 16, Alkaline Phosphatase 269H, Total Protein 6.6, Albumin 3.3 Microbiology 09/18/18 Blood Culture - Preliminary, Resulted No growth 09/17/18 Urine Culture - Final, Complete NO GROWTH A/P-Cardiology Assessment/Admission Diagnosis Possible left renal cell carcinoma with metastasis, Abdominal sepsis, Lactic acidosis, Tachycardia. Plan IV fluids, broad-spectrum antibiotics, deferred to the primary team. Possible left renal cell carcinoma, awaiting evaluation at . Tachycardia, likely due to sepsis. Thank you for your consultation. Please call me if you have any questions. Shahriar Schaffer MD, FACP, FACC, FSCAI, FHRS, CCDS Interventional Cardiology Cardiac Electrophysiology Vascular Medicine and Endovascular Interventions Clinical Quality Measures DVT/VTE Risk/Contraindication: Risk Factor Score Per Nursin RFS Level Per Nursing on Admit: 4+=Very High Luis Miguel SCHAFFER MD Sep 19, 2018 23:08
[2018-09-20 00:54] VITALS: BP 134/84
[2018-09-20 04:21] VITALS: BP 150/82
[2018-09-20] MEDS: NS IV 1000 ML 1,000 ML IV SCH ×4 (04:28→19:21)
[2018-09-20] MEDS: TRIM/SULFAMETH 160/800 (SEPTRA DS) TAB PO SCH ×2 (06:01→16:39)
[2018-09-20] MEDS: PIPERACILLIN/TAZO 4.5 GM/NS 100 ML IV SCH ×6 (06:01→21:07)
[2018-09-20] MEDS: metFORMIN XR 500 MG (GLUCOPHAGE XR) TAB PO SCH ×2 (06:01→16:39)
[2018-09-20 06:59] LABS: BASOPHILS # (AUTO) 0.1 10^3/uL (0.0-0.1); BASOPHILS % (AUTO) 0 % (0-10); EOSINOPHILS # (AUTO) 0.6 10^3/uL (0.0-0.3); EOSINOPHILS % (AUTO) 5 % (0-10); HEMATOCRIT 34 % (40-54); HEMOGLOBIN 10.7 G/DL (13.3-17.7); LYMPHOCYTES # (AUTO) 1.1 X 10^3 (1.0-4.0); LYMPHOCYTES % (AUTO) 9 % (12-44); MEAN CORPUSCULAR HEMOGLOBIN 27 PG (25-34); MEAN CORPUSCULAR HGB CONC 31 G/DL (32-36); MEAN CORPUSCULAR VOLUME 84 FL (80-99); MEAN PLATELET VOLUME 8.1 FL (7.4-10.4); MONOCYTES # (AUTO) 1.2 X 10^3 (0.0-1.0); MONOCYTES % (AUTO) 10 % (0-12); NEUTROPHILS # (AUTO) 9.3 X 10^3 (1.8-7.8); NEUTROPHILS % (AUTO) 76 % (42-75); PLATELET COUNT 517 10^3/uL (130-400); RED CELL DISTRIBUTION WIDTH 14.8 % (10.0-14.5); WHITE BLOOD COUNT 12.3 10^3/uL (4.3-11.0)
[2018-09-20 07:21] LABS: ALANINE AMINOTRANSFERASE 16 U/L (0-55); ALBUMIN 3.3 GM/DL (3.2-4.5); ALKALINE PHOSPHATASE 269 U/L (40-136); BILIRUBIN,TOTAL 0.2 MG/DL (0.1-1.0); BUN/CREATININE RATIO 9; CALCIUM 9.2 MG/DL (8.5-10.1); CARBON DIOXIDE 20 MMOL/L (21-32); CHLORIDE 104 MMOL/L (98-107); CREATININE SERUM 1.08 MG/DL (0.60-1.30); GFR ESTIMATED > 60; GLUCOSE 122 MG/DL (70-105); POTASSIUM 4.1 MMOL/L (3.6-5.0); SODIUM 136 MMOL/L (135-145); TOTAL PROTEIN 6.6 GM/DL (6.4-8.2)
[2018-09-20 08:00] VITALS: BP 161/115
[2018-09-20] MEDS: FAMOTIDINE 20 MG (PEPCID) TABLET PO SCH (08:18)
[2018-09-20] MEDS: ALLOPURINOL 300 MG (ZYLOPRIM) TAB PO SCH ×2 (08:18→21:03)
[2018-09-20] MEDS: ENALAPRIL 10 MG (VASOTEC) TAB PO SCH ×2 (08:19→21:03)
--- NOTE | 2018-09-20 10:29 | Progress Note - Hospitalist ---
Subjective HPI/CC On Admission Date Seen by Provider: Sep 20, 2018 Time Seen by Provider: 10:00 The patient is a 63-year-old white male who presented to the emergency room last night with complaints of generalized abdominal and left lower quadrant pain. He has recently been discovered to have a kidney lesion on the left which is highly likely to be renal cell carcinoma. He has an appointment to see a doctor at [facility] on 09/24 to lay out a treatment plan. He denied fever or sweats. He stated that at times felt hot. His lab showed a creatinine of 1.38 the initial lactic acid was 1.89 and then climbed to 2.44. It is now fallen back to 2.27 with hydration. His venous access is quite poor and he will require a more dependable access. He was noted that his pulse returned from 100-116 and continues to do so. Subjective/Events-last exam Pt feels much better Antibiotic used for UTI. Took an Ina seltzer and feels much better. No nausea noted. Tachycardia much improved. Reviewed Dr. Enamorado note. Review of Systems General: Fatigue Gastrointestinal: Abdominal Pain Focused Exam Lactate Level 09/17/18 22:30: Lactic Acid Level 2.44*H 09/18/18 01:00: Lactic Acid Level 2.27*H Objective Exam Vital Signs Vital Signs Date Time Temp Pulse Resp B/P (MAP) Pulse Ox O2 Delivery O2 Flow Rate FiO2 09/20/18 20:15 98.4 89 18 174/99 (124) 97 Room Air Capillary Refill : Less Than 3 Seconds General Appearance: No Apparent Distress, WD/WN HEENT: Normal ENT Inspection Neck: Normal Inspection Respiratory: Chest Non Tender, Lungs Clear, Normal Breath Sounds, No Accessory Muscle Use, No Respiratory Distress Cardiovascular: No Edema, No Gallop, No JVD, No Murmur, Normal Peripheral Pulses, Tachycardia Gastrointestinal: Normal Bowel Sounds, No Organomegaly Back: Normal Inspection, No CVA Tenderness Extremity: Normal Capillary Refill, Normal Inspection, Normal Range of Motion, Non Tender, No Calf Tenderness, No Pedal Edema Neurologic/Psychiatric: Alert, Oriented x3, No Motor/Sensory Deficits, Normal Mood/Affect Skin: Normal Color, Warm/Dry Lymphatic: No Adenopathy Results/Procedures Lab Laboratory Tests 09/20/18 06:20 Patient resulted labs reviewed. Assessment/Plan Assessment and Plan Assess & Plan/Chief Complaint Assessment: Severe abdominal pain UTI? Renal mass w/mets? [facility] appt 09/24/18 Tachycardia on IVF and Tely consulting Cardiology Constipation GERD Leukocytosis Plan: Consult Cardiology for tachycardia IVF Pain meds Miralax Abx Monitor labs Diagnosis/Problems Diagnosis/Problems (1) Left lower quadrant pain Status: Acute (2) Tachycardia Status: Acute (3) Leukocytosis Status: Acute Qualifiers: Leukocytosis type: unspecified Qualified Codes: D72.829 - Elevated white blood cell count, unspecified (4) Renal cell carcinoma Status: Acute Qualifiers: Laterality: left Qualified Codes: C64.2 - Malignant neoplasm of left kidney, except renal pelvis (5) Reflux esophagitis Status: Chronic (6) Non-insulin dependent type 2 diabetes mellitus Status: Chronic (7) Essential (primary) hypertension Status: Chronic (8) CAD (coronary artery disease) Status: Chronic Qualifiers: Coronary Disease-Associated Artery/Lesion type: [place] artery (9) Metastasis from malignant neoplasm of kidney Status: Acute (10) Generalized abdominal pain Status: Acute Clinical Quality Measures DVT/VTE Risk/Contraindication: Risk Factor Score Per Nursin RFS Level Per Nursing on Admit: 4+=Very High JAZZY CAMPBELL DO Sep 20, 2018 10:28
[2018-09-20 12:00] VITALS: BP 167/99
--- NOTE | 2018-09-20 14:36 | Progress Note ---
Subjective Date Seen by a Provider: Sep 20, 2018 Time Seen by a Provider: 11:00 Subjective/Events-last exam doing better. pain controlled mostly with PO pain meds and fentanyl ptt. tolerating diet. urinating well. no fever/chills. Focused Exam Lactate Level 09/17/18 22:30: Lactic Acid Level 2.44*H 09/18/18 01:00: Lactic Acid Level 2.27*H Objective Exam Vital Signs Date Time Temp Pulse Resp B/P (MAP) Pulse Ox O2 Delivery O2 Flow Rate FiO2 09/20/18 12:00 97.0 91 20 167/99 (121) 95 Room Air 09/20/18 08:00 Room Air 09/20/18 08:00 97.8 100 20 161/115 (130) 96 Room Air 09/20/18 07:00 100 09/20/18 04:21 97.8 90 20 150/82 (104) 97 Room Air 09/20/18 01:00 93 09/20/18 00:54 97.6 96 18 134/84 (101) 93 Room Air 09/19/18 20:00 Room Air 09/19/18 20:00 97.9 94 18 176/98 (124) 97 Room Air 09/19/18 19:00 94 09/19/18 16:00 97.7 99 20 171/108 (129) 97 Room Air I & O 09/20/18 07:00 Intake Total 2510 ml Balance 2510 ml Capillary Refill : Less Than 3 Seconds General Appearance: No Apparent Distress HEENT: PERRL/EOMI Neck: Full Range of Motion Respiratory: Chest Non Tender, Normal Breath Sounds Cardiovascular: Regular Rate, Rhythm Gastrointestinal: normal bowel sounds, soft, tenderness Extremity: Normal Capillary Refill Neurologic/Psychiatric: Alert, Oriented x3 Skin: Normal Color Lymphatic: No Adenopathy Results Lab Laboratory Tests 09/20/18 06:20: White Blood Count 12.3H, Red Blood Count 4.04L, Hemoglobin 10.7L, Hematocrit 34L , Mean Corpuscular Volume 84, Mean Corpuscular Hemoglobin 27, Mean Corpuscular Hemoglobin Concent 31L, Red Cell Distribution Width 14.8H, Platelet Count 517H, Mean Platelet Volume 8.1, Neutrophils (%) (Auto) 76H, Lymphocytes (%) (Auto) 9L, Monocytes (%) (Auto) 10, Eosinophils (%) (Auto) 5, Basophils (%) (Auto) 0, Neutrophils # (Auto) 9.3H, Lymphocytes # (Auto) 1.1, Monocytes # (Auto) 1.2H, Eosinophils # (Auto) 0.6H, Basophils # (Auto) 0.1, Sodium Level 136, Potassium Level 4.1, Chloride Level 104, Carbon Dioxide Level 20L, Anion Gap 12, Blood Urea Nitrogen 10, Creatinine 1.08, Estimat Glomerular Filtration Rate > 60, BUN/Creatinine Ratio 9, Glucose Level 122H, Calcium Level 9.2, Corrected Calcium 9.8, Total Bilirubin 0.2, Aspartate Amino Transf (AST/SGOT) 17, Alanine Aminotransferase (ALT/SGPT) 16, Alkaline Phosphatase 269H, Total Protein 6.6, Albumin 3.3 Microbiology 09/18/18 Blood Culture - Preliminary, Resulted No growth 09/17/18 Urine Culture - Final, Complete NO GROWTH Assessment/Plan Assessment/Plan Assess & Plan/Chief Complaint LLQ and flank pain with large left renal mass and bilat pulm nodules. pain better controlled with fentanyl ptt, hydrocodone 10mg q 4hrs. leukocytosis, most likely UTI source however no growth to date, on zosyn. CXR unchanged. no signs atelectasis or pnuemonia. no calf tenderness. will await cultures, cont zosyn for now. if increase WBC then consider IVP and urology consultation. WBC improving as well as pain control. plan per surg perspective is to continue PO pain meds, augmentin PO for 7 days, encourage PO water intake and UO. has consultation at [facility] on monday. Clinical Quality Measures DVT/VTE Risk/Contraindication: Risk Factor Score Per Nursin RFS Level Per Nursing on Admit: 4+=Very High KETURAH CONNER MD Sep 20, 2018 14:36
--- NOTE | 2018-09-20 14:42 | NUR ---
Pastoral care visit.
[2018-09-20 16:01] VITALS: BP 172/99
[2018-09-20] MEDS: HYDROcodone/APAP 10 MG/325 MG (LORTAB) TAB PO PRN ×2 (16:39→20:28)
[2018-09-20 20:15] VITALS: BP 174/99
[2018-09-20] MEDS: SIMvastatin 20 MG (ZOCOR) TAB PO SCH (21:03)
[2018-09-20] MEDS: POLYETHYLENE GLYCOL 17 GM (MIRALAX) PACK PO SCH (21:07)
--- NOTE | 2018-09-20 23:51 | Cardiology Progress Note ---
Cardiology SOAP Progress Note Subjective: No cardiac complaints. Objective: I&O/Vital Signs 09/20/18 09/20/18 09/20/18 09/20/18 12:00 13:00 16:01 19:00 Temp 97.0 97.8 Pulse 91 104 98 95 Resp 20 20 B/P (MAP) 167/99 (121) 172/99 (123) Pulse Ox 95 96 O2 Delivery Room Air Room Air 09/20/18 20:15 Temp 98.4 Pulse 89 Resp 18 B/P (MAP) 174/99 (124) Pulse Ox 97 O2 Delivery Room Air 09/20/18 00:00 Intake Total 1790 ml Balance 1790 ml Weight (Pounds): 197 Weight (Ounces): 5.0 Weight (Calculated Kilograms): 89.035915 Constitutional: appears stated age, AAO x 3; No apparent distress; well- developed, well-nourished Respiratory: No accessory muscle use, No respiratory distress, No chest tender, No chest expansion is symmetric; chest is bilaterally symmetric; No lungs clear to percussion; lungs clear to auscultation; No crackles, No rhonchi, No rales, No stridor, No wheezing, No pleural rub, No other Cardiovascular: regular rate-rhythm, tachycardia, S1 and S2 Gastrointestional: No tender, No soft, No round, No distended, No pulsatile mass, No organomegaly, No guarding, No rebound, No tenderness, No hernia, No mass, No audible bowel sounds, No abnormal bowel sounds, No abdominal bruits, No spleenomegaly, No other Extremities: No normal range of motion, No non-tender, No normal inspection, No pedal edema, No calf tenderness, No normal capillary refill, No pelvis stable, No calf tenderness, No inflammation, No pedal edema, No slow capillary refill, No swelling, No other, No abrasion, No clubbing, No cyanosis, No ecchymosis, No laceration, No no lower extremity edema bilateral, No significant edema, No tenderness, No wound Neurologic/Psychiatric: no motor/sensory deficits, alert, normal mood/affect, oriented x 3, power is 5/5 both on sides Skin: No normal color, No warm/dry, No cyanosis, No cool, No diaphoresis, No damp, No ecchymosis, No jaundice, No mottled, No pallor, No rash, No tattoos/piercings, No ulcerations, No rash on exposed areas, No ulcerations on exposed areas, No other Results/Procedures: Labs Laboratory Tests 09/20/18 06:20: White Blood Count 12.3H, Red Blood Count 4.04L, Hemoglobin 10.7L, Hematocrit 34L , Mean Corpuscular Volume 84, Mean Corpuscular Hemoglobin 27, Mean Corpuscular Hemoglobin Concent 31L, Red Cell Distribution Width 14.8H, Platelet Count 517H, Mean Platelet Volume 8.1, Neutrophils (%) (Auto) 76H, Lymphocytes (%) (Auto) 9L, Monocytes (%) (Auto) 10, Eosinophils (%) (Auto) 5, Basophils (%) (Auto) 0, Neutrophils # (Auto) 9.3H, Lymphocytes # (Auto) 1.1, Monocytes # (Auto) 1.2H, Eosinophils # (Auto) 0.6H, Basophils # (Auto) 0.1, Sodium Level 136, Potassium Level 4.1, Chloride Level 104, Carbon Dioxide Level 20L, Anion Gap 12, Blood Urea Nitrogen 10, Creatinine 1.08, Estimat Glomerular Filtration Rate > 60, BUN/Creatinine Ratio 9, Glucose Level 122H, Calcium Level 9.2, Corrected Calcium 9.8, Total Bilirubin 0.2, Aspartate Amino Transf (AST/SGOT) 17, Alanine Aminotransferase (ALT/SGPT) 16, Alkaline Phosphatase 269H, Total Protein 6.6, Albumin 3.3 Microbiology 09/18/18 Blood Culture - Preliminary, Resulted No growth 09/17/18 Urine Culture - Final, Complete NO GROWTH A/P: Assessment/Dx: Possible left renal cell carcinoma with metastasis, Abdominal sepsis, Lactic acidosis, Tachycardia. Plan: IV fluids, broad-spectrum antibiotics, deferred to the primary team. Possible left renal cell carcinoma, awaiting evaluation at . Tachycardia, likely due to sepsis. Thank you for your consultation. Please call me if you have any questions. Shahriar Schaffer MD, FACP, FACC, FSCAI, FHRS, CCDS Interventional Cardiology Cardiac Electrophysiology Vascular Medicine and Endovascular Interventions Focused Exam Lactate Level 09/18/18 01:00: Lactic Acid Level 2.27*Luis Miguel ACOSTA MD Sep 20, 2018 23:51
[2018-09-21 00:09] VITALS: BP 165/98
[2018-09-21] MEDS: HYDROcodone/APAP 10 MG/325 MG (LORTAB) TAB PO PRN ×2 (01:59→06:46)
[2018-09-21] MEDS: NS IV 1000 ML 1,000 ML IV SCH ×2 (01:59→08:47)
[2018-09-21 04:00] VITALS: BP 146/84
[2018-09-21] MEDS: TRIM/SULFAMETH 160/800 (SEPTRA DS) TAB PO SCH (06:19)
[2018-09-21] MEDS: PIPERACILLIN/TAZO 4.5 GM/NS 100 ML IV SCH ×2 (06:19)
[2018-09-21] MEDS: metFORMIN XR 500 MG (GLUCOPHAGE XR) TAB PO SCH (06:19)
[2018-09-21 06:47] LABS: BASOPHILS % (AUTO) 0 % (0-10); EOSINOPHILS # (AUTO) 0.6 10^3/uL (0.0-0.3); EOSINOPHILS % (AUTO) 4 % (0-10); HEMATOCRIT 36 % (40-54); HEMOGLOBIN 11.3 G/DL (13.3-17.7); LYMPHOCYTES # (AUTO) 1.2 X 10^3 (1.0-4.0); LYMPHOCYTES % (AUTO) 8 % (12-44); MEAN CORPUSCULAR HEMOGLOBIN 27 PG (25-34); MEAN CORPUSCULAR HGB CONC 32 G/DL (32-36); MEAN CORPUSCULAR VOLUME 83 FL (80-99); MONOCYTES # (AUTO) 1.5 X 10^3 (0.0-1.0); MONOCYTES % (AUTO) 10 % (0-12); NEUTROPHILS # (AUTO) 12.6 X 10^3 (1.8-7.8); NEUTROPHILS % (AUTO) 79 % (42-75); PLATELET COUNT 599 10^3/uL (130-400)
[2018-09-21 07:14] LABS: ALANINE AMINOTRANSFERASE 22 U/L (0-55); ALBUMIN 3.4 GM/DL (3.2-4.5); ALKALINE PHOSPHATASE 295 U/L (40-136); BILIRUBIN,TOTAL 0.3 MG/DL (0.1-1.0); BUN/CREATININE RATIO 8; CALCIUM 9.5 MG/DL (8.5-10.1); CARBON DIOXIDE 20 MMOL/L (21-32); CHLORIDE 102 MMOL/L (98-107); CREATININE SERUM 0.99 MG/DL (0.60-1.30); GFR ESTIMATED > 60; GLUCOSE 100 MG/DL (70-105); POTASSIUM 4.4 MMOL/L (3.6-5.0); SODIUM 135 MMOL/L (135-145); TOTAL PROTEIN 6.8 GM/DL (6.4-8.2)
[2018-09-21 08:09] VITALS: BP 171/106
[2018-09-21] MEDS: FAMOTIDINE 20 MG (PEPCID) TABLET PO SCH (08:46)
[2018-09-21] MEDS: ALLOPURINOL 300 MG (ZYLOPRIM) TAB PO SCH (08:46)
[2018-09-21] MEDS: ENALAPRIL 10 MG (VASOTEC) TAB PO SCH (08:46)
[2018-09-21] MEDS ORDERED: AMOX-358 PO (09:59)
[2018-09-21] MEDS ORDERED: FENT1PAT8 TD (09:59)
[2018-09-21] MEDS ORDERED: HYDR-3820 PO (09:59)
--- NOTE | 2018-09-21 10:00 | Discharge Summary ---
Diagnosis/Chief Complaint Date of Admission Sep 17, 2018 at 23:56 Date of Discharge Discharge Date: Sep 21, 2018 Discharge Diagnosis (1) Left lower quadrant pain Status: Acute (2) Tachycardia Status: Acute (3) Leukocytosis Status: Acute (4) Renal cell carcinoma Status: Acute (5) Reflux esophagitis Status: Chronic (6) Non-insulin dependent type 2 diabetes mellitus Status: Chronic (7) Essential (primary) hypertension Status: Chronic (8) CAD (coronary artery disease) Status: Chronic (9) Metastasis from malignant neoplasm of kidney Status: Acute (10) Generalized abdominal pain Status: Acute Discharge Summary Discharge Physical Exam Allergies: Coded Allergies: No Known Drug Allergies (Unverified , 06/27/18) Vitals & I&Os Vital Signs Date Time Temp Pulse Resp B/P (MAP) Pulse Ox O2 Delivery O2 Flow Rate FiO2 09/21/18 10:48 99 20 171/106 96 Room Air 09/21/18 08:09 97.8 General Appearance: No Apparent Distress, WD/WN, Chronically ill Respiratory: Chest Non Tender, Lungs Clear, Normal Breath Sounds, No Accessory Muscle Use, No Respiratory Distress Cardiovascular: Regular Rate, Rhythm, No Edema, No Gallop, No JVD, No Murmur, Normal Peripheral Pulses Neurologic/Psychiatric: Alert, Oriented x3, No Motor/Sensory Deficits, Normal Mood/Affect Hospital Course Was the Problem List Reviewed?: Yes Hospital course: Patient had a lengthy hospital course after using admitted for abdominal pain leukocytosis UTI and tachycardia. Dr. Enamorado was consulted for renal cancer with metastasis and abdominal pain. Empiric antibiotics were i nitiated of Zosyn which was tolerated well. Fentanyl patch was initiated along with hydrocodone 10/325 with good pain relief. He will be placed on broad- spectrum Augmentin antibiotic coverage to tide him over to his appointment at on Monday and his family will continue to provide supportive care in the meantime until definitive treatment for renal cancer with metastasis is ini tiated. MiraLAX was given with good bowel movement prior to discharge. Labs (last 24 hrs) Laboratory Tests 09/21/18 05:39: White Blood Count 16.0H, Red Blood Count 4.26L, Hemoglobin 11.3L, Hematocrit 36L , Mean Corpuscular Volume 83, Mean Corpuscular Hemoglobin 27, Mean Corpuscular Hemoglobin Concent 32, Red Cell Distribution Width 15.0H, Platelet Count 599H, Mean Platelet Volume 8.0, Neutrophils (%) (Auto) 79H, Lymphocytes (%) (Auto) 8L, Monocytes (%) (Auto) 10, Eosinophils (%) (Auto) 4, Basophils (%) (Auto) 0, Neutrophils # (Auto) 12.6H, Lymphocytes # (Auto) 1.2, Monocytes # (Auto) 1.5H, Eosinophils # (Auto) 0.6H, Basophils # (Auto) 0.0, Sodium Level 135, Potassium Level 4.4, Chloride Level 102, Carbon Dioxide Level 20L, Anion Gap 13, Blood Urea Nitrogen 8, Creatinine 0.99, Estimat Glomerular Filtration Rate > 60, BUN/Creatinine Ratio 8, Glucose Level 100, Calcium Level 9.5, Corrected Calcium 10.0, Total Bilirubin 0.3, Aspartate Amino Transf (AST/SGOT) 19, Alanine Aminotransferase (ALT/SGPT) 22, Alkaline Phosphatase 295H, Total Protein 6.8, Albumin 3.4 Microbiology 09/18/18 Blood Culture - Preliminary, Resulted No growth 09/17/18 Urine Culture - Final, Complete NO GROWTH Patient resulted labs reviewed. Pending Labs Laboratory Tests 09/21/18 05:39: White Blood Count 16.0, Red Blood Count 4.26, Hemoglobin 11.3, Hematocrit 36, Mean Corpuscular Volume 83, Mean Corpuscular Hemoglobin 27, Mean Corpuscular Hemoglobin Concent 32, Red Cell Distribution Width 15.0, Platelet Count 599, Mean Platelet Volume 8.0, Neutrophils (%) (Auto) 79, Lymphocytes (%) (Auto) 8, Monocytes (%) (Auto) 10, Eosinophils (%) (Auto) 4, Basophils (%) (Auto) 0, Neutrophils # (Auto) 12.6, Lymphocytes # (Auto) 1.2, Monocytes # (Auto) 1.5, Eosinophils # (Auto) 0.6, Basophils # (Auto) 0.0, Sodium Level 135, Potassium Le karl 4.4, Chloride Level 102, Carbon Dioxide Level 20, Anion Gap 13, Blood Urea Nitrogen 8, Creatinine 0.99, Estimat Glomerular Filtration Rate > 60, BUN/Creatinine Ratio 8, Glucose Level 100, Calcium Level 9.5, Corrected Calcium 10.0, Total Bilirubin 0.3, Aspartate Amino Transf (AST/SGOT) 19, Alanine Aminotransferase (ALT/SGPT) 22, Alkaline Phosphatase 295, Total Protein 6.8, Albumin 3.4 Discussion & Recommendations Discharge Planning: <30 minutes discharge planning Discharge Home Medications: Active Scripts Active Augmentin 875-125 Tablet (Amoxicillin/Potassium Clav) 1 Each Tablet 1 Each PO BID Fentanyl Patch 25 MCG (Fentanyl) 1 Each Patch.td72 25 Mcg TD Q72H Hydrocodon-Acetaminophn 10-325 (Hydrocodone/Acetaminophen) 1 Each Tablet 1 Ea PO Q4H PRN Reported Chlorpheniramine Maleate 4 Mg Tablet 4 Mg PO DAILY PRN Metoclopramide HCl 10 Mg Tablet 10 Mg PO QID PRN Metoprolol Succinate 25 Mg Tab.er.24h 25 Mg PO DAILY Alprazolam 0.25 Mg Tablet 0.25 Mg PO Q8H PRN Cetirizine HCl 10 Mg Tablet 10 Mg PO DAILY Indomethacin 50 Mg Capsule 50 Mg PO QID PRN Allopurinol 300 Mg Tablet 300 Mg PO BID Simvastatin 20 Mg Tablet 20 Mg PO HS Pepcid (Famotidine) 20 Mg Tablet 20 Mg PO DAILY Enalapril Maleate 20 Mg Tablet 20 Mg PO BID Cyclobenzaprine HCl 10 Mg Tablet 10 Mg PO Q8H PRN Metformin HCl ER (Metformin HCl) 500 Mg Tab.er.24h 500 Mg PO BID Instructions to patient/family Please see electronic discharge instructions given to patient. Clinical Quality Measures DVT/VTE Risk/Contraindication: Risk Factor Score Per Nursin RFS Level Per Nursing on Admit: 4+=Very High Problem Qualifiers (1) Leukocytosis: Leukocytosis type: unspecified Qualified Codes: D72.829 - Elevated white blood cell count, unspecified (2) Renal cell carcinoma: Laterality: left Qualified Codes: C64.2 - Malignant neoplasm of left kidney, except renal pelvis (3) CAD (coronary artery disease): Coronary Disease-Associated Artery/Lesion type: [place] artery JAZZY CAMPBELL DO Sep 21, 2018 10:00
--- NOTE | 2018-09-21 10:37 | NUR ---
Met with pt to assess any continued care needs. Pt is and lives alone in [place]. He is employed as the automation and controls supervisor for the [employer] and hopes he can continue employment. he has two adult children both living in the [place] area. Pt's son is with pt and will accompany him to his appt at [facility] to meet with a Dr. Romero about his recent diagnosis of Renal Cell carcinoma. His appt is MondaySeptember 24. Pt has scripts for pain and states he has no continued care needs at this time.
[2018-09-21 10:48] VITALS: BP 171/106
--- NOTE | 2018-09-21 11:27 | Progress Note ---
Subjective Date Seen by a Provider: Sep 21, 2018 Time Seen by a Provider: 10:00 Subjective/Events-last exam doing well. pain controlled. tolerating diet and liquids. urinating well. Objective Exam Vital Signs Date Time Temp Pulse Resp B/P (MAP) Pulse Ox O2 Delivery O2 Flow Rate FiO2 09/21/18 10:48 99 20 171/106 96 Room Air 09/21/18 08:09 97.8 99 20 171/106 (127) 96 Room Air 09/21/18 08:00 Room Air 09/21/18 07:00 96 09/21/18 04:00 97.9 112 18 146/84 (104) 93 Room Air 09/21/18 00:56 96 09/21/18 00:09 165/98 (120) 09/20/18 23:54 98.8 96 18 96 Room Air 09/20/18 20:15 98.4 89 18 174/99 (124) 97 Room Air 09/20/18 20:00 Room Air 09/20/18 19:00 95 09/20/18 16:01 97.8 98 20 172/99 (123) 96 Room Air 09/20/18 13:00 104 09/20/18 12:00 97.0 91 20 167/99 (121) 95 Room Air I & O 09/21/18 07:00 Intake Total 2180 ml Balance 2180 ml Capillary Refill : Less Than 3 Seconds General Appearance: No Apparent Distress HEENT: PERRL/EOMI Neck: Full Range of Motion Respiratory: Chest Non Tender, Lungs Clear, Normal Breath Sounds Cardiovascular: Regular Rate, Rhythm Gastrointestinal: normal bowel sounds, soft, tenderness Extremity: Normal Capillary Refill Neurologic/Psychiatric: Alert, Oriented x3 Skin: Normal Color Lymphatic: No Adenopathy Results Lab Laboratory Tests 09/21/18 05:39: White Blood Count 16.0H, Red Blood Count 4.26L, Hemoglobin 11.3L, Hematocrit 36L , Mean Corpuscular Volume 83, Mean Corpuscular Hemoglobin 27, Mean Corpuscular Hemoglobin Concent 32, Red Cell Distribution Width 15.0H, Platelet Count 599H, Mean Platelet Volume 8.0, Neutrophils (%) (Auto) 79H, Lymphocytes (%) (Auto) 8L, Monocytes (%) (Auto) 10, Eosinophils (%) (Auto) 4, Basophils (%) (Auto) 0, Neutrophils # (Auto) 12.6H, Lymphocytes # (Auto) 1.2, Monocytes # (Auto) 1.5H, Eosinophils # (Auto) 0.6H, Basophils # (Auto) 0.0, Sodium Level 135, Potassium Level 4.4, Chloride Level 102, Carbon Dioxide Level 20L, Anion Gap 13, Blood Urea Nitrogen 8, Creatinine 0.99, Estimat Glomerular Filtration Rate > 60, BUN/Creatinine Ratio 8, Glucose Level 100, Calcium Level 9.5, Corrected Calcium 10.0, Total Bilirubin 0.3, Aspartate Amino Transf (AST/SGOT) 19, Alanine Aminotransferase (ALT/SGPT) 22, Alkaline Phosphatase 295H, Total Protein 6.8, Albumin 3.4 Microbiology 09/18/18 Blood Culture - Preliminary, Resulted No growth 09/17/18 Urine Culture - Final, Complete NO GROWTH Assessment/Plan Assessment/Plan Assess & Plan/Chief Complaint LLQ and flank pain with large left renal mass and bilat pulm nodules. pain better controlled with fentanyl ptt, hydrocodone 10mg q 4hrs. leukocytosis, most likely UTI source however no growth to date, on zosyn. CXR unchanged. no signs atelectasis or pnuemonia. no calf tenderness. WBC improved as well as pain control. plan per surg perspective is to continue PO pain meds, augmentin PO for 7 days, encourage PO water intake and UO. has consultation at on monday. Clinical Quality Measures DVT/VTE Risk/Contraindication: Risk Factor Score Per Nursin RFS Level Per Nursing on Admit: 4+=Very High KETURAH CONNER MD Sep 21, 2018 11:27
--- NOTE | 2018-09-21 12:27 | Cardiology Progress Note ---
Cardiology SOAP Progress Note Subjective: No cardiac complaints. Objective: I&O/Vital Signs 09/21/18 09/21/18 09/21/18 09/21/18 00:56 04:00 07:00 08:00 Temp 97.9 Pulse 96 112 96 Resp 18 B/P (MAP) 146/84 (104) Pulse Ox 93 O2 Delivery Room Air Room Air 09/21/18 09/21/18 08:09 10:48 Temp 97.8 Pulse 99 99 Resp 20 20 B/P (MAP) 171/106 (127) 171/106 Pulse Ox 96 96 O2 Delivery Room Air Room Air 09/21/18 00:00 Intake Total 1370 ml Balance 1370 ml Weight (Pounds): 197 Weight (Ounces): 5.0 Weight (Calculated Kilograms): 89.541466 Constitutional: appears stated age, AAO x 3; No apparent distress; well- developed, well-nourished Respiratory: No accessory muscle use, No respiratory distress, No chest tender, No chest expansion is symmetric; chest is bilaterally symmetric; No lungs clear to percussion; lungs clear to auscultation; No crackles, No rhonchi, No rales, No stridor, No wheezing, No pleural rub, No other Cardiovascular: regular rate-rhythm, tachycardia, S1 and S2 Gastrointestional: No tender, No soft, No round, No distended, No pulsatile mass, No organomegaly, No guarding, No rebound, No tenderness, No hernia, No mass, No audible bowel sounds, No abnormal bowel sounds, No abdominal bruits, No spleenomegaly, No other Extremities: No normal range of motion, No non-tender, No normal inspection, No pedal edema, No calf tenderness, No normal capillary refill, No pelvis stable, No calf tenderness, No inflammation, No pedal edema, No slow capillary refill, No swelling, No other, No abrasion, No clubbing, No cyanosis, No ecchymosis, No laceration, No no lower extremity edema bilateral, No significant edema, No tenderness, No wound Neurologic/Psychiatric: no motor/sensory deficits, alert, normal mood/affect, oriented x 3, power is 5/5 both on sides Skin: No normal color, No warm/dry, No cyanosis, No cool, No diaphoresis, No damp, No ecchymosis, No jaundice, No mottled, No pallor, No rash, No tattoos/piercings, No ulcerations, No rash on exposed areas, No ulcerations on exposed areas, No other Results/Procedures: Labs Laboratory Tests 09/21/18 05:39: White Blood Count 16.0H, Red Blood Count 4.26L, Hemoglobin 11.3L, Hematocrit 36L , Mean Corpuscular Volume 83, Mean Corpuscular Hemoglobin 27, Mean Corpuscular Hemoglobin Concent 32, Red Cell Distribution Width 15.0H, Platelet Count 599H, Mean Platelet Volume 8.0, Neutrophils (%) (Auto) 79H, Lymphocytes (%) (Auto) 8L, Monocytes (%) (Auto) 10, Eosinophils (%) (Auto) 4, Basophils (%) (Auto) 0, Neutrophils # (Auto) 12.6H, Lymphocytes # (Auto) 1.2, Monocytes # (Auto) 1.5H, Eosinophils # (Auto) 0.6H, Basophils # (Auto) 0.0, Sodium Level 135, Potassium Level 4.4, Chloride Level 102, Carbon Dioxide Level 20L, Anion Gap 13, Blood Urea Nitrogen 8, Creatinine 0.99, Estimat Glomerular Filtration Rate > 60, BUN/Creatinine Ratio 8, Glucose Level 100, Calcium Level 9.5, Corrected Calcium 10.0, Total Bilirubin 0.3, Aspartate Amino Transf (AST/SGOT) 19, Alanine Aminotransferase (ALT/SGPT) 22, Alkaline Phosphatase 295H, Total Protein 6.8, Albumin 3.4 Microbiology 09/18/18 Blood Culture - Preliminary, Resulted No growth 09/17/18 Urine Culture - Final, Complete NO GROWTH A/P: Assessment/Dx: Possible left renal cell carcinoma with metastasis, Abdominal sepsis, Lactic acidosis, Tachycardia. Mild to moderate CAD. Plan: IV fluids, broad-spectrum antibiotics, deferred to the primary team. Possible left renal cell carcinoma, awaiting evaluation at . Sinus Tachycardia, likely due to sepsis. Mild to moderate CAD, stable. Thank you for your consultation. Please call me if you have any questions. Shahriar Schaffer MD, FACP, FACC, FSCAI, FHRS, CCDS Interventional Cardiology Cardiac Electrophysiology Vascular Medicine and Endovascular Interventions Luis Miguel SCHAFFER MD Sep 21, 2018 12:27
[2018-09-21] MEDS ORDERED: FENTANYL PATCH REMOVAL TP SCH (13:59)
--- NOTE | 2018-09-26 10:02 | Physician Query Clarification ---
PQ-Further Specificity Admission/Discharge Admission Date: Sep 17, 2018 at 23:56 Discharge Date: Sep 21, 2018 at 11:24 The medical record reflects the following clinical scenario: History/Risk Factors: Lt. 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 Please document a response in the Progress Notes or Discharge Summary. 1. Sepsis d/t UTI 2. Sepsis ruled out 3. UTI ruled out 4. Other, please clarify the underlying cause of the leukocytosis, tachycardia elevated lactic acid with explanation of the clinical findings. 5. Clinically undetermined, no explanation for the clinical findings. PHYSICIAN RESPONSE Can you specify per above: 1 Please remember a lack of response to the above will prompt a phone page by [facility] staff. In responding to this query, please exercise your independent professional judgment. The purpose of this communication is to more accurately reflect the complexity of your patients condition. The fact that a question is asked does not imply that any particular answer is desired or expected. Thank you for your timely response to this clarification. Requestors name: Jani THIS PHYSICIAN QUERY FORM IS A PERMANENT PART OF THE MEDICAL RECORD JANI BARAJAS Sep 26, 2018 10:02 JAZZY CAMPBELL DO Sep 26, 2018 10:44
== END 2018-09-21 11:24 | disposition home or self-care (01) | DRG 872 ==
LOC: EDUNIT# 21:14 → ER 21:15 → 4TH 23:56
PROVIDERS: ADMIT Internal Medicine; ATTEND Internal Medicine
DX: A41.9 Sepsis, unspecified organism (principal); N39.0 Urinary tract infection, site not specified; C64.2 Malignant neoplasm of left kidney, except renal pelvis; C79.72 Secondary malignant neoplasm of left adrenal gland; C78.01 Secondary malignant neoplasm of right lung; C78.02 Secondary malignant neoplasm of left lung; E11.9 Type 2 diabetes mellitus without complications; R00.0 Tachycardia, unspecified; I25.10 Atherosclerotic heart disease of native coronary artery without angina pectoris; I10 Essential (primary) hypertension; E78.00 Pure hypercholesterolemia, unspecified; K21.0 Gastro-esophageal reflux disease with esophagitis; K59.09 Other constipation; K57.90 Diverticulosis of intestine, part unspecified, without perforation or abscess without bleeding; M10.9 Gout, unspecified; I45.10 Unspecified right bundle-branch block; H54.3 Unqualified visual loss, both eyes; Z90.49 Acquired absence of other specified parts of digestive tract; Z87.891 Personal history of nicotine dependence; Z79.84 Long term (current) use of oral hypoglycemic drugs; Z87.19 Personal history of other diseases of the digestive system
CPT/HCPCS: 36415; 71046; 80053; 81000; 83605; 85007; 85025; 85027; 85610; 85730; 86141; 87040; 87088; 93306; 96361; 96365; 96375